=== PATIENT | female | born 1995 | race Caucasian/White ===

== ENCOUNTER → 2016-11-08 | Outpatient (CLI) | payer OTHER ==
--- NOTE | 2016-11-08 23:24 | MR ---
MRI of the brain with and without contrast HISTORY: Headaches.T1-weighted sagittal, T2, FLAIR, and diffusion axial, postcontrast T1 axial and co juanito views of the brain are submitted. CONTRAST: 12 mL MultiHance FINDINGS: There is no evidence of acute ischemia. The ventricles, basal cisterns, and sulci overlying the co nvexities are consistent with the patient's age. There is no mass effect or enhancing mass. Cerebellar tonsils are low-lying in position measuring 3 mm below the foramen magnum. No tonsillar be aking. No evidence of cerebellopontine angle mass. There is normal enhancement of the vasculature including the dural venous sinuses. Incidental note made of a tiny venous angioma within the left parietal lobe . There are changes of chronic sinusitis. Area of signal seen within the left inferior frontal lobe lik latanya related to intraparenchymal cyst measuring 8 mm. No enhancing lesions. There is a single area of abnormal signal within the left parietal white matter of doubtful significance. IMPRESSION: 1. Low-lying cerebellar tonsils measuring 3 mm below the foramen magnum but no tonsillar beaking. 2. Mild chronic sinusitis. 3. Single area of abnormal signal within the left parietal white matter of doubtful significance vanessa elate clinically. EXAMINATION TYPE: MR cervical spine with and without contrast DATE OF EXAM: 11/08/2016 9:44 PM COMPARISON: NONE HISTORY: Rt sided neck/ear pain, occassional swelling Contrast: 12 mL MultiHance Technique: T1 sagittal and coronal, T2 sagittal, and gradient echo axial views of the cervical spine are submitted. Findings: Cerebellar tonsils are low-lying in position measuring approximately 3 mm below the foramen magnum. No evidence of syrinx. There is no abnormal signal seen within the spinal cord or paraspinal soft tissues. At C2-3 there is no evidence of disc herniation or canal stenosis. No foraminal encroachment. At C3-4 there is no evidence of disc herniation or canal stenosis. No foraminal encroachment. At C4-5 there is mild disc desiccation and uncovertebral joint hypertrophy. No canal stenosis or fora eddie encroachment. No disc herniation. At C5-6 there is no evidence of disc herniation or canal stenosis. No foraminal encroachment. At C6-7 there is no evidence of disc herniation or canal stenosis. No foraminal encroachment. At C7-T1 there is no evidence of disc herniation or canal stenosis. No foraminal encroachment. IMPRESSION: 1. Mild disc desiccation C4-C5 with mild uncovertebral joint hypertrophy but no canal stenosis or di sc herniation. No foraminal encroachment. 2. Low-lying cerebellar tonsils measuring 3 mm below the foramen magnum. No tonsillar beaking.
== END | disposition home or self-care (01) ==
LOC: RADMRIMAIN 20:43
PROVIDERS: ATTEND Otolaryngology
DX: G93.89 Other specified disorders of brain (principal); J32.9 Chronic sinusitis, unspecified; H92.01 Otalgia, right ear; M50.821 Other cervical disc disorders at C4-C5 level
CPT/HCPCS: 70553; 72156; A9577

== ENCOUNTER → 2017-05-27 | Outpatient (CLI) | payer OTHER ==
[2017-05-27 12:09] LABS: CHCM 34.4; HDW 2.32; HGB 14.5 gm/dL (11.4-16.0); MCH 30.5 pg (25.0-35.0); MCHC 33.7 g/dL (31.0-37.0); MCV 90.6 fL (80.0-100.0); Mean Platelet Volume 10.1; RBC 4.75 m/uL (3.80-5.40); RDW 13.6 % (11.5-15.5)
[2017-05-27 12:22] LABS: Glucose 103 mg/dL (74-99); Non-African American GFR(MDRD) >60 (>60 ml/min/1.73 sqM)
[2017-05-27 12:48] LABS: Hepatitis B Surface Ag Index 0.05
== END | disposition home or self-care (01) ==
LOC: LABWHC1 11:26
PROVIDERS: ATTEND Obstetrics & Gynecology
DX: Z34.01 Encounter for supervision of normal first pregnancy, first trimester (principal); Z3A.00 Weeks of gestation of pregnancy not specified
CPT/HCPCS: 36415; 82565; 82947; 85027; 86762; 86780; 86850; 86900; 86901; 87340

== ENCOUNTER → 2017-09-02 | Outpatient (CLI) | payer OTHER ==
[2017-09-02 11:47] LABS: Glucose 3 Hour, Gest 57 mg/dL
== END | disposition home or self-care (01) ==
LOC: LABWHC1 07:52
PROVIDERS: ATTEND Obstetrics & Gynecology
DX: O99.810 Abnormal glucose complicating pregnancy (principal); Z3A.00 Weeks of gestation of pregnancy not specified
CPT/HCPCS: 36415; 82951; 82952

== ENCOUNTER 2017-11-24 14:54 | Outpatient (CLI) | payer OTHER, BC ==
[2017-11-24 16:20] VITALS: PULSE 102; RESP 16; TEMP 97
[2017-11-24 16:38] VITALS: BP 127/73
--- NOTE | 2017-12-02 15:56 | P.MSEPDOC ---
Presenting Problems - Arrival Data Date of Arrival on Unit: 11/24/17 Time of Arrival on Unit: 14:45 Mode of Transport: Ambulatory - Complaint OB-Reason for Admission/Chief Complaint: Elevated Blood Pressure Comment: pt states b/p 150/90 at home. dizzy, ears ringing, spots, nausea and diaphoretic. 4 times in one hour. gr 1 para 0 at [address] monzon pt. Medical History - Information : 1 Para: 0 Term: 0 : 0 Abortions: Spontaneous or Elective: 0 Number of Living Children: 0 - Gestational Age Gestational Age by CHATO (wks/days): 36 Weeks and 6 Days - History Comment: pt states b/p in office was 140/80 previously. no other elevations until today at home. adm b/p 139/73. without headache, blurred vision or epig pain. no edema present, bilat pat reflexes 2+ without clonus. Review of Systems - Review of Systems Constitutional: No problems Breast: No problems ENT: No problems Cardiovascular: No problems Respiratory: No problems Gastrointestinal: No problems Genitourinary: No problems Musculoskeletal: No problems Neurological: Dizziness Skin: No problems Vital Signs - Temperature Temperature: 97.0 F Temperature Source: Oral - Pulse Right Brachial Pulse Rate: 102 Pulse Assessment Method: Automatic Cuff - Respirations Respiratory Rate: 16 Oxygen Delivery Method: Room Air O2 Sat by Pulse Oximetry: 96 - Blood Pressure Right Arm Blood Pressure: 127/73 Blood Pressure Mean: 91 Blood Pressure Source: Automatic Cuff Medical Screen Scoring (Pre) - Cervical Exam Dilation: Exam Deferred - Uterine Contractions Frequency: N/A Duration: N/A Intensity: N/A - Maternal Vital Signs Maternal Temperature: N/A Maternal Blood Pressure: N/A Signs of Preeclampsia: N/A Maternal Respirations: N/A - Pain Assessment Pain Scale Used: Numeric (1 - 10) Pain Intensity: 0 - Maternal Trauma Maternal Trauma: N/A - Assessment Baseline FHR: 140 Heart Rate - NICHD Category: Category I (Normal) = 0 - Total Score Total Score (Pre): 0 - Level of Risk Level of Risk: Low (0-5) Physician Notification (Pre) - Physician Notified Physician Notified Date: 11/24/17 Physician Notified Time: 15:48 Physician/Practitioner Notifed:: yes Spoke With: glenna New Order Received: Yes - Notification Comment Comment: disch home. keep next sched appt. increase fluids. Medical Screen Scoring (Post) - Cervical Exam Dilation: Exam Deferred Effacement: Exam Deferred - Uterine Contractions Frequency: N/A Duration: N/A Intensity: N/A - Maternal Vital Signs Maternal Temperature: N/A Maternal Blood Pressure: N/A Signs of Preeclampsia: N/A Maternal Respirations: N/A - Pain Assessment Pain Intensity: 0 - Maternal Trauma Maternal Trauma: N/A - Assessment Heart Rate: 135 Heart Rate - NICHD Category: Category I (Normal) = 0 NST: Reactive Position: N/A Station: N/A - Total Score Total Score (Post): 0 - Post Treatment Level of Risk Post Treatment Level of Risk: N/A Physician Notification (Post) - Physician Notified Physician Notified Date: 11/24/17 Physician Notified Time: 15:48 New Order Received: Yes - Notification Comment Comment: disch home Disposition - Disposition OB Disposition: Discharge to home Transferred to:: home Discharge Date: 11/24/17 Discharge Time: 16:20 I agree with the RN Medical Screening Exam: Yes Risk & Benefit of care provided described in d/c instruction: Yes Diagnosis: DEHYDRATION
== END 2017-11-24 16:30 | disposition home or self-care (01) ==
LOC: FBPOP 14:54
PROVIDERS: ATTEND Obstetrics & Gynecology
DX: O99.283 Endocrine, nutritional and metabolic diseases complicating pregnancy, third trimester (principal); Z3A.36 36 weeks gestation of pregnancy
CPT/HCPCS: 59025; 99213

== ENCOUNTER 2017-11-28 12:03 | Outpatient (CLI) | payer OTHER, BC ==
[2017-11-28 12:36] VITALS: BP 120/70; PULSE 75; RESP 18; TEMP 97.3
[2017-11-28 12:47] LABS: ALT 22 U/L (9-52); AST 13 U/L (14-36); LDH 488 U/L (313-618); Uric Acid 4.3 mg/dL (3.7-7.4)
[2017-11-28 12:49] LABS: Basophils % (A) 0 %; Eosinophils # (A) 0.1 k/uL (0-0.7); Eosinophils % (A) 1 %; HCT 35.4 % (34.0-46.0); HGB 11.7 gm/dL (11.4-16.0); Lymphocytes # (A) 2.1 k/uL (1.0-4.8); Lymphocytes % (A) 17 %; MCH 29.1 pg (25.0-35.0); MCHC 33.1 g/dL (31.0-37.0); MCV 87.7 fL (80.0-100.0); Monocytes # (A) 0.5 k/uL (0-1.0); Monocytes % (A) 4 %; Neutrophils # (A) 9.3 k/uL (1.3-7.7); Neutrophils % (A) 76 %; Platelet Count 246 k/uL (150-450); RBC 4.03 m/uL (3.80-5.40); WBC 12.3 k/uL (3.8-10.6)
[2017-11-28 12:52] LABS: Amorphous Sediment,Urine Few /hpf; Appearance,Urine Cloudy (Clear); Bilirubin,Urine Negative (Negative); Blood,Urine Negative (Negative); Color,Urine Yellow; Glucose,Urine (UA) Negative (Negative); Ketones,Urine Negative (Negative); Leukocyte Esterase,Urine Large (Negative); Mucus,Urine Few /hpf; Nitrite,Urine Negative (Negative); Protein,Urine Trace (Negative); RBC,Urine 8 /hpf (0-5); Specific Gravity,Urine 1.018 (1.001-1.035); Squamous Epithelial Cell,Urine 1 /hpf (0-4); Urobilinogen,Urine <2.0 mg/dL (<2.0); WBC,Urine 2 /hpf (0-5)
--- NOTE | 2017-11-28 17:32 | P.MSEPDOC ---
Presenting Problems - Arrival Data Date of Arrival on Unit: 11/28/17 Time of Arrival on Unit: 12:03 Mode of Transport: Ambulatory - Complaint OB-Reason for Admission/Chief Complaint: PIH Comment: Sent from office for [facility] labs Medical History - Information : 1 Para: 0 Term: 0 : 0 Abortions: Spontaneous or Elective: 0 Number of Living Children: 0 - Gestational Age Gestational Age by CHATO (wks/days): 37 Weeks and 3 Days - History Complications: No Care Review of Systems - Review of Systems Constitutional: No problems Breast: No problems ENT: No problems Cardiovascular: No problems Respiratory: No problems Gastrointestinal: No problems Genitourinary: No problems Musculoskeletal: No problems Neurological: No problems Skin: No problems Vital Signs - Temperature Temperature: 97.3 F Temperature Source: Temporal Artery Scan - Pulse Right Brachial Pulse Rate: 75 - Respirations Respiratory Rate: 18 O2 Sat by Pulse Oximetry: 99 - Blood Pressure Right Arm Blood Pressure: 120/70 Blood Pressure Mean: 86 Blood Pressure Source: Automatic Cuff Medical Screen Scoring (Pre) - Cervical Exam Dilation: Exam Deferred Effacement: Exam Deferred Membranes: Intact - Uterine Contractions Frequency: N/A Duration: N/A Intensity: N/A - Maternal Vital Signs Maternal Temperature: N/A Maternal Blood Pressure: N/A Signs of Preeclampsia: N/A Maternal Respirations: N/A - Maternal Trauma Maternal Trauma: N/A - Assessment Baseline FHR: 135 Heart Rate - NICHD Category: Category I (Normal) = 0 NST: Reactive Position: N/A Station: N/A - Total Score Total Score (Pre): 0 - Level of Risk Level of Risk: Low (0-5) Physician Notification (Pre) - Physician Notified Physician Notified Date: 11/28/17 Physician Notified Time: 12:00 Physician/Practitioner Notifed:: Dr. Fagan Spoke With: Dr. Fagan New Order Received: Yes - Notification Comment Comment: Dr. Fagan called orders over to hospital for labs Medical Screen Scoring (Post) - Cervical Exam Dilation: Exam Deferred Effacement: Exam Deferred Membranes: Intact - Uterine Contractions Frequency: N/A Duration: N/A Intensity: N/A - Maternal Vital Signs Maternal Temperature: N/A Maternal Blood Pressure: N/A Signs of Preeclampsia: N/A Maternal Respirations: N/A - Maternal Trauma Maternal Trauma: N/A - Assessment Heart Rate: 145 Heart Rate - NICHD Category: Category I (Normal) = 0 NST: Reactive Position: N/A Station: N/A - Total Score Total Score (Post): 0 - Post Treatment Level of Risk Post Treatment Level of Risk: Low (0-5) Physician Notification (Post) - Physician Notified Physician Notified Date: 11/28/17 Physician Notified Time: 13:00 Physician/Practitioner Notified:: Dr Fagan Spoke With: Dr. Fagan New Order Received: Yes - Notification Comment Comment: Discharge home and return to office as scheduled Disposition - Disposition OB Disposition: Discharge to home I agree with the RN Medical Screening Exam: Yes Risk & Benefit of care provided described in d/c instruction: Yes Diagnosis: GESTATIONAL HTN W/O SIGNIFICANT PROTEINURIA, THIRD TRIMESTER
== END 2017-11-28 13:03 | disposition home or self-care (01) ==
LOC: FBPOP 12:03
PROVIDERS: ATTEND Obstetrics & Gynecology
DX: O13.3 Gestational [pregnancy-induced] hypertension without significant proteinuria, third trimester (principal); Z3A.37 37 weeks gestation of pregnancy
CPT/HCPCS: 59025; 81001; 82565; 83615; 84450; 84460; 84550; 85025; 87086

== ENCOUNTER 2017-12-13 16:23 | Inpatient (IN) | payer BC, OTHER ==
[2017-12-13 16:53] LABS: Appearance,Urine Cloudy (Clear); Bacteria,Urine Few /hpf; Bilirubin,Urine Negative (Negative); Blood,Urine Trace (Negative); Color,Urine Yellow; Glucose,Urine (UA) Negative (Negative); Ketones,Urine Negative (Negative); Leukocyte Esterase,Urine Large (Negative); Mucus,Urine Rare /hpf; Nitrite,Urine Negative (Negative); PH, Urine 6.5 (5.0-8.0); Protein,Urine Trace (Negative); RBC,Urine 11 /hpf (0-5); Specific Gravity,Urine 1.016 (1.001-1.035); Squamous Epithelial Cell,Urine 8 /hpf (0-4); WBC,Urine 15 /hpf (0-5)
[2017-12-13] MEDS ORDERED: DINOPROSTONE 10 MG INSERT.ER VAGINAL ONE (17:00)
[2017-12-13 17:20] LABS: Basophils % (A) 0 %; Eosinophils # (A) 0.1 k/uL (0-0.7); Eosinophils % (A) 1 %; HCT 37.4 % (34.0-46.0); HGB 11.9 gm/dL (11.4-16.0); Lymphocytes # (A) 2.3 k/uL (1.0-4.8); Lymphocytes % (A) 18 %; MCH 28.6 pg (25.0-35.0); MCHC 31.7 g/dL (31.0-37.0); MCV 90.2 fL (80.0-100.0); Mean Platelet Volume 9.5; Monocytes # (A) 0.6 k/uL (0-1.0); Monocytes % (A) 5 %; Neutrophils # (A) 9.7 k/uL (1.3-7.7); Neutrophils % (A) 75 %; Platelet Count 216 k/uL (150-450); RBC 4.15 m/uL (3.80-5.40); RDW 14.7 % (11.5-15.5); WBC 12.9 k/uL (3.8-10.6)
[2017-12-13 17:31] LABS: ALT 19 U/L (9-52); AST 15 U/L (14-36); Blood Urea Nitrogen 10 mg/dL (7-17); Uric Acid 4.4 mg/dL (3.7-7.4)
[2017-12-13 17:40] VITALS: BMI 35.5
[2017-12-13 17:48] LABS: LDH 468 U/L (313-618)
[2017-12-13 17:55] LABS: INR 0.9 (<1.2); Prothrombin Time 9.4 sec (9.0-12.0)
--- NOTE | 2017-12-13 18:03 | P.HPOB ---
History of Present Illness H&P Date: 12/13/17 Chief Complaint: Hypertension in This patient is a pleasant 22-year-old 1 para 0 female estimated date of confinement 12/16/2017 estimated gestational age 39-4/7 weeks gestation who presents to labor and delivery for evaluation of hypertension. Patient's history is such that she presented this afternoon for routine visit and was found to have elevated blood pressure 142/92. Patient previously had had a blood pressure elevated at home a few weeks ago however this could not be reproduced in the office or in labor and delivery and preeclampsia labs were negative as well. Patient now has persistent blood pressures that are 140/90 or higher and presents for delivery secondary to this. Repeat preeclampsia labs again are normal. She is not having a headache. She does have some peripheral edema which has been going on for several weeks. Patient's care has otherwise been uncomplicated. Review of Systems Gastrointestinal: Reports heartburn Genitourinary: Reports Menstruation: Reports amenorrhea Past Medical History Past Medical History: Skin Disorder Additional Past Medical History / Comment(s): eczema on arms & legs- uses otc lotion. rt breast mass upper outer quadrant-mild discomfort History of Any Multi-Drug Resistant Organisms: None Reported Past Surgical History: Ear Surgery, Tonsillectomy Additional Past Surgical History / Comment(s): ear surgery x 11 on missy. ears for tubes & polyps. wisdom teeth Past Anesthesia/Blood Transfusion Reactions: No Reported Reaction Past Psychological History: No Psychological Hx Reported Smoking Status: Never smoker Past Alcohol Use History: Occasional Past Drug Use History: None Reported - Past Family History Father Family Medical History: Hypertension Medications and Allergies Home Medications Medication Instructions Recorded Confirmed Type Acetaminophen Tab [Tylenol Tab] 650 mg PO Q6H 11/24/17 12/13/17 History Calcium Carbonate [Tums] 500 mg PO TID 11/24/17 12/13/17 History Pnv,Calcium 72/Iron/Folic Acid 1 tab PO DAILY 11/24/17 12/13/17 History [ Plus Tablet] Allergies Allergy/AdvReac Type Severity Reaction Status Date / Time azithromycin [From Zithromax] Allergy Rash/Hives Verified 12/13/17 16:34 Exam - Vital Signs Vital signs: Vital Signs Temp Pulse Resp BP 12/13/17 17:32 98 F 83 16 123/87 02/20/18 17:22 97.9 F 97 18 142/80 Intake and Output 12/13/17 12/13/17 12/13/17 06:59 14:59 22:59 Other: Weight 93.894 kg Patient Weight 12/14/17 06:59 Weight 93.894 kg - OBG Physical Exam Abdomen: bowel sounds normal, no diffuse tenderness, no bruit present, no guarding noted, no hepatomegaly, no splenomegaly, no mass Vulva: both: normal Vagina: normal moisture, no discharge Cervix: Cervix in the office is closed internal os fingertip external os. Cervix: no lesion, no discharge Uterus: enlarged (fundal height is 40 cm.) Results blood work shows she is be positive, rubella immune, RPR nonreactive, hepatitis B negative, group B strep negative, Glucola was 137 with a normal three-hour gtt. Ultrasounds have been normal. Result Diagrams: 12/13/17 16:53 12/13/17 16:53 Abnormal Lab Results - Last 24 Hours (Table) 12/13/17 12/13/17 Range/Units 16:36 16:53 WBC 12.9 H (3.8-10.6) k/uL Neutrophils # 9.7 H (1.3-7.7) k/uL Urine Appearance Cloudy H (Clear) Urine Protein Trace H (Negative) Urine Blood Trace H (Negative) Ur Leukocyte Esterase Large H (Negative) Urine RBC 11 H (0-5) /hpf Urine WBC 15 H (0-5) /hpf Ur Squamous Epith Cells 8 H (0-4) /hpf Urine Bacteria Few H (None) /hpf Urine Mucus Rare H (None) /hpf Assessment and Plan Assessment: This is a pleasant 22-year-old 1 para 0 female 39-4/7 weeks gestation with gestational hypertension at term. There is no evidence of preeclampsia. Per current protocol recommendations are to proceed with delivery. Since the patient's cervix is unfavorable, plan is Cervidil ripening of the cervix and induction of labor. (1) Third trimester Current Visit: Yes Status: Acute Code(s): Z34.93 - ENCNTR FOR SUPRVSN OF NORMAL PREG, UNSP, THIRD TRIMESTER SNOMED Code(s): 93586374 (2) Gestational hypertension Current Visit: Yes Status: Acute Code(s): O13.9 - GESTATIONAL HTN W/O SIGNIFICANT PROTEINURIA, UNSP TRIMESTER SNOMED Code(s): 51091042
[2017-12-13 18:13] LABS: Partial Thromboplastin Time 21.9 sec (22.0-30.0)
[2017-12-13] MEDS: BUTORPHANOL 1 MG/ML 1 ML VIAL IV PRN (22:24)
[2017-12-13] MEDS: LACTATED RINGERS 1,000 ML IV SCH (23:30)
[2017-12-14] MEDS: BUTORPHANOL 1 MG/ML 1 ML VIAL IV PRN ×3 (00:28→06:05)
[2017-12-14] MEDS: LACTATED RINGERS 1,000 ML IV SCH ×4 (03:50→21:14)
[2017-12-14] MEDS ORDERED: TERBUTALINE 1 MG/ML VIAL SQ PRN (04:50)
[2017-12-14] MEDS ORDERED: METHYLERGONOVINE 0.2 MG/ML 1 ML AMP IM PRN (04:50)
[2017-12-14] MEDS ORDERED: OXYTOCIN 10 UNIT/ML 1 ML VIAL IM PRN (04:50)
[2017-12-14] MEDS ORDERED: LIDOCAINE 1% (PF) 10 MG/ML (30 ML SDV) SQ PRN (04:50)
[2017-12-14] MEDS ORDERED: CARBOPROST TROMETHAMINE 250 MCG/ML 1 ML AMP IM PRN (04:50)
[2017-12-14] MEDS: OXYTOCIN 20 UNITS/1000 ML NS 1,000 ML IV SCH (06:10)
--- NOTE | 2017-12-14 06:13 | P.MSEPDOC ---
Presenting Problems - Arrival Data Date of Arrival on Unit: 12/13/17 Time of Arrival on Unit: 16:23 Mode of Transport: Ambulatory - Complaint OB-Reason for Admission/Chief Complaint: PIH Medical History - Information : 1 Para: 0 Term: 0 : 0 Abortions: Spontaneous or Elective: 0 Number of Living Children: 0 - Gestational Age Gestational Age by CHATO (wks/days): 39 Weeks and 4 Days Review of Systems - Review of Systems Constitutional: No problems Breast: No problems ENT: No problems Cardiovascular: No problems Respiratory: No problems Gastrointestinal: No problems Genitourinary: No problems Musculoskeletal: No problems Neurological: No problems Skin: No problems Vital Signs - Temperature Temperature: 98 F Temperature Source: Temporal Artery Scan - Pulse Right Sitting Brachial Pulse Rate: 83 Pulse Assessment Method: Automatic Cuff - Respirations Respiratory Rate: 16 Oxygen Delivery Method: Room Air - Blood Pressure Right Arm Supine Blood Pressure: 123/87 Blood Pressure Mean: 99 Blood Pressure Source: Automatic Cuff Medical Screen Scoring (Pre) - Cervical Exam Dilation: Exam Deferred Effacement: Exam Deferred Membranes: Intact - Uterine Contractions Frequency: N/A Duration: N/A Intensity: N/A - Maternal Vital Signs Maternal Temperature: N/A Maternal Blood Pressure: Systolic >139 = 2 Signs of Preeclampsia: N/A Maternal Respirations: N/A - Total Score Total Score (Pre): 2 - Level of Risk Level of Risk: Low (0-5) Physician Notification (Pre) - Physician Notified Physician Notified Date: 12/13/17 Physician Notified Time: 16:40 Physician/Practitioner Notifed:: Rylan Spoke With: Rylan New Order Received: Yes - Notification Comment Comment: Admit for cervidil Disposition - Disposition OB Disposition: Admit, LDRP Suite I agree with the RN Medical Screening Exam: Yes Risk & Benefit of care provided described in d/c instruction: Yes Diagnosis: GESTATIONAL HTN W/O SIGNIFICANT PROTEINURIA, THIRD TRIMESTER
--- NOTE | 2017-12-14 06:59 | P.PN ---
Progress Note - Text Progress Note Date: 12/14/17 Patient responded well to the Cervidil overnight. This was removed at 3:30 am and patient had SROM at 5:30 this morning. Cervix is 1-/. Will begin Pitocin augmentation per protocol. Blood pressures remain stable. Patient understands that I will be here until approximately noon, at which time Dr. Childress will take over managing her labor.
[2017-12-14] MEDS ORDERED: SODIUM CHLORIDE 0.9% 100 ML BAG ONE ×2 (07:33→15:23)
[2017-12-14] MEDS ORDERED: fentaNYL (PF) 50 MCG/ML 5 ML AMP ONE ×2 (07:33→15:23)
[2017-12-14] MEDS ORDERED: BUPIVACAINE (PF) 0.25% 30 ML VIAL ONE ×2 (07:33→15:23)
[2017-12-14] MEDS ORDERED: BUPIVACAINE (PF) 0.25% 25 ML, fentaNYL (PF) 200 MCG in SODIUM CHLORIDE 0.9% 71 ML EPIDURAL ONE (09:18)
[2017-12-14] MEDS ORDERED: LABETALOL 5 MG/ML VIAL MDV IVP STA (15:00)
[2017-12-14] MEDS ORDERED: CITRIC ACID-SODIUM CITRATE 15 ML CUP PO ONE (15:01)
[2017-12-14] MEDS ORDERED: ONDANSETRON 4 MG/2 ML VIAL ONE (15:23)
[2017-12-14] MEDS ORDERED: MORPHINE SULFATE (PF) 0.3 MG/0.3 ML SYR ONE (15:23)
[2017-12-14] MEDS ORDERED: KETOROLAC 30 MG/ML 1 ML VIAL ONE (15:23)
[2017-12-14] MEDS ORDERED: PHENYLEPHRINE-0.9% NACL SYG 1 MG/10 ML SYRINGE ONE (15:23)
[2017-12-14] MEDS ORDERED: OXYTOCIN 10 UNIT/ML 1 ML VIAL ONE (15:23)
[2017-12-14] MEDS ORDERED: diphenhydrAMINE 50 MG/ML 1 ML VIAL IVP PRN ×2 (16:05)
[2017-12-14] MEDS ORDERED: Acetaminophen-Codeine 300-30mg TAB PO PRN ×2 (16:05)
[2017-12-14] MEDS ORDERED: diphenhydrAMINE 50 MG CAP PO PRN (16:05)
[2017-12-14] MEDS ORDERED: ACETAMINOPHEN TAB 325 MG TAB PO PRN (16:05)
[2017-12-14] MEDS ORDERED: METOCLOPRAMIDE 5 MG/ML 2 ML VIAL IVP PRN (16:05)
[2017-12-14] MEDS ORDERED: ZOLPIDEM 5 MG TAB PO PRN (16:05)
[2017-12-14] MEDS ORDERED: ONDANSETRON 4 MG/2 ML VIAL IVP PRN (16:05)
[2017-12-14] MEDS ORDERED: NALOXONE 0.4 MG/ML 1 ML VIAL IV PRN (16:05)
[2017-12-14] MEDS ORDERED: SIMETHICONE 80 MG CHEWABLE PO PRN (16:05)
[2017-12-14] MEDS ORDERED: diphenhydrAMINE 25 MG CAP PO PRN (16:05)
--- NOTE | 2017-12-14 16:11 | P.OP ---
Date of Procedure: 12/14/17 Preoperative Diagnosis: IUP term: arrest of dilitation: gest DM Postoperative Diagnosis: same Procedure(s) Performed: Primary low transverse section from Pfannenstiel Anesthesia: epidural Surgeon: Carlitos Childress Door Clamper #1: Amy De León Estimated Blood Loss (ml): 600 IV fluids (ml): 1,000 Urine output (ml): 200 Pathology: other (Placenta) Condition: stable Disposition: floor Operative Findings: Male scores of 8 and 9 at one and 5 respectively and weight 7 lbs. 12 oz. Baby was delivered from left occiput anterior with asynclitic presentation and cephalopelvic disproportion Description of Procedure: Patient was evaluated due to elevations in blood pressure anywhere from 170/100- 165/99. She had been dilated to 9/2 cm for over 3 hours and had made no further descent or dilatation. Due to this and her ever increasing pain and worsening blood pressures a decision was mad between myself and she and her family. The decision was to proceed with a section to get the baby delivered and trying get the blood pressures better under control. Due to elevations in blood pressure labetalol 20 mg was ordered. I did offer to allow her to continue to labor but she felt the baby was stuck in with no progress in 3 hours she was certain that she was not going to dilated anymore and out of the abundance of caution with her blood pressures the decision was made to move forward with a section. She was taken to the operating suite where a epidural anesthetic was found be adequate. She was prepped and draped in the normal sterile fashion and placed in the dorsal supine position with leftward tilt. Initially a Pfannenstiel skin incision was made and this incision was then carried through to the underlying layer of the fashion with the second knife. Fascia was then nicked in the midline and this opening was extended laterally with Blair scissors. Superior and inferior aspect of this incision were then grasped tented up and bluntly and sharply dissected off the rectus muscles. Rectus muscles were then divided the midline and blunt dissection through the peritoneum was made. His opening was then extended superiorly and inferiorly with good visualization of both bowel bladder. Bladder blade was placed and bladder flap identified and entered with Metzenbaum scissors. This opening was then extended across the face of the uterus with Metzenbaum scissors and bladder flap was digitally created. Knife was then used to incise the uterus this opening was fully developed wasn't hemostat and then bluntly extended. Head was then H medically delivered with large At noted on the top of the baby's head off to the left-hand side. Once baby was fully delivered mouth nares were bulb suctioned and nuchal cord 1 had been reduced. The umbilical cord was then allowed to pulsate for approximately 30 seconds and then clamped cut usual fashion.. Nursery personnel was present to assume care. Placenta was then delivered intact and Pitocin was added to the IV. Uterus was then exteriorized cleared of clots and debris and closed in 2 layers with 0 Vicryl suture. Once excellent hemostasis was obtained 3-0 Vicryl was used to reapproximate the bladder flap. Blood and debris was then suctioned from the posterior cul-de-sac and uterus was reinserted into the abdomen. Blood and debris was then removed from the gutters. Peritoneal layer was then cleaned with hemostats and closed with 0 Vicryl suture. Fascial layer was then closed with 0 Vicryl suture one layer of 3-0 Vicryl was placed in the deep subcuticular tissues reapproximate the skin and close the space. The skin was then closed with 3-0 Vicryl on a Matt needle. Sponge, lap, needle counts were all correct 2. Patient tolerated surgery very well and was taken to the recovery room in stable and satisfactory condition.
[2017-12-14] MEDS: SENNOSIDES-DOCUSATE SODIUM 1 EACH TAB PO SCH (21:14)
[2017-12-15] MEDS: KETOROLAC 30 MG/ML 1 ML VIAL IVP PRN ×2 (00:14→06:29)
[2017-12-15] MEDS: LACTATED RINGERS 1,000 ML IV SCH ×3 (01:32→14:40)
--- NOTE | 2017-12-15 06:30 | P.PNOBGPC ---
Subjective - Subjective Patient reports: Reports appetite normal, Reports voiding normally, Reports pain well controlled, Reports ambulating normally [place]: doing well Objective - Vital Signs Latest vital signs: Vital Signs Temp Pulse Resp BP Pulse Ox 12/15/17 04:00 97.4 F L 100 16 128/57 96 12/15/17 00:00 98.1 F 99 17 125/80 96 12/14/17 20:00 98.2 F 96 17 141/90 98 12/14/17 18:05 98.4 F 104 H 20 149/94 99 12/14/17 17:35 85 18 152/98 12/14/17 17:05 87 20 12/14/17 16:55 88 18 150/97 100 12/14/17 16:40 88 20 149/99 12/14/17 16:25 93 18 142/94 12/14/17 16:10 96.2 F L 84 20 138/92 98 Intake and Output 12/14/17 12/14/17 12/15/17 14:59 22:59 06:59 Output Total 350 600 500 Balance -350 -600 -500 Output: Urine 350 600 500 Straight 350 Other: Voiding Method Toilet Indwelling Catheter Indwelling Catheter # Voids 1 0 - Exam Lungs: bilateral: normal Chest: Normal S1, Normal S2 Extremities: Present: normal Abdomen: Present: normal appearance, soft. Absent: distention, tenderness Incision: Present: normal, dry, intact Uterus: Present: normal, firm Assessment and Plan Assessment: Post operative day #1. Patient is resting without complaints. Vital signs are stable and blood pressures have normalized. Uterus is firm nontender she's having normal lochia. Her incision is intact and dry. Patient's having good urine output. I impression this is a normal post operative course with resolving hypertension. Plan is to discontinue her catheter, encourage ambulation, advanced to a regular diet, check a CBC. (1) Third trimester Current Visit: Yes Status: Acute Code(s): Z34.93 - ENCNTR FOR SUPRVSN OF NORMAL PREG, UNSP, THIRD TRIMESTER SNOMED Code(s): 73322874 (2) Gestational hypertension Current Visit: Yes Status: Acute Code(s): O13.9 - GESTATIONAL HTN W/O SIGNIFICANT PROTEINURIA, UNSP TRIMESTER SNOMED Code(s): 90935262
--- NOTE | 2017-12-15 06:36 | P.PN ---
Progress Note - Text Progress Note Date: 12/15/17 POST OP DAY ONE, STATUS POST C/S UNDER EPIDURAL ANESTHESIA, WITH EPIDURAL DURAMORPH GIVEN FOR POST OP ANALGESIA , PATIENTS DOING WELL, THERE IS NO ANESTHESIA RELATED COMPLICATIONS.
[2017-12-15] MEDS: OXYTOCIN 20 UNITS/1000 ML NS 1,000 ML IV SCH (06:42)
[2017-12-15 06:44] LABS: Basophils % (A) 0 %; Eosinophils # (A) 0.2 k/uL (0-0.7); Eosinophils % (A) 1 %; Lymphocytes % (A) 12 %; MCH 28.2 pg (25.0-35.0); MCHC 32.4 g/dL (31.0-37.0); MCV 87.1 fL (80.0-100.0); Mean Platelet Volume 9.3; Monocytes # (A) 0.5 k/uL (0-1.0); Monocytes % (A) 4 %; Neutrophils # (A) 12.9 k/uL (1.3-7.7); Neutrophils % (A) 82 %; Platelet Count 199 k/uL (150-450); RBC 3.44 m/uL (3.80-5.40); RDW 15.1 % (11.5-15.5); WBC 15.8 k/uL (3.8-10.6)
[2017-12-15 06:47] LABS: HGB 9.7 gm/dL (11.4-16.0)
[2017-12-15] MEDS: IBUPROFEN 600 MG TAB PO PRN ×2 (11:54→17:47)
[2017-12-15] MEDS: SENNOSIDES-DOCUSATE SODIUM 1 EACH TAB PO SCH ×2 (19:32→21:48)
[2017-12-16] MEDS: IBUPROFEN 600 MG TAB PO PRN ×3 (03:16→16:03)
--- NOTE | 2017-12-16 06:03 | P.PNOBGVD ---
Subjective - Subjective Patient reports: Reports appetite normal, Reports voiding normally, Reports pain well controlled, Reports ambulating normally : doing well Objective - Latest Vital Signs Latest vital signs: Vital Signs Temp Pulse Resp BP 12/16/17 00:00 97.8 F 116 H 16 120/68 12/15/17 16:00 98.4 F 108 H 16 140/88 12/15/17 12:05 97.6 F 104 H 16 136/83 12/15/17 08:00 98.2 F 99 16 124/79 Intake and Output 12/15/17 12/15/17 12/16/17 14:59 22:59 06:59 Output Total 800 Balance -800 Output: Urine 800 Other: Voiding Method Toilet # Voids 1 1 - Exam Lungs: bilateral: normal Chest: Normal S1, Normal S2 Extremities: Present: normal Abdomen: Present: normal appearance, soft Uterus: Present: normal, firm - Labs Labs: Abnormal Lab Results - Last 24 Hours (Table) 12/15/17 Range/Units 06:36 WBC 15.8 H (3.8-10.6) k/uL RBC 3.44 L (3.80-5.40) m/uL Hgb 9.7 L D (11.4-16.0) gm/dL Hct 30.0 L (34.0-46.0) % Neutrophils # 12.9 H (1.3-7.7) k/uL Assessment and Plan Assessment: Postoperative day #2. Vital signs are stable she's afebrile. Patient is intact and dry. My impression is a normal postoperative course. Plan is to continue routine postoperative care and most likely discharge home tomorrow. Continue to watch her blood pressures. (1) Third trimester Current Visit: Yes Status: Acute Code(s): Z34.93 - ENCNTR FOR SUPRVSN OF NORMAL PREG, UNSP, THIRD TRIMESTER SNOMED Code(s): 81328560 (2) Gestational hypertension Current Visit: Yes Status: Acute Code(s): O13.9 - GESTATIONAL HTN W/O SIGNIFICANT PROTEINURIA, UNSP TRIMESTER SNOMED Code(s): 50033818
[2017-12-16] MEDS: SENNOSIDES-DOCUSATE SODIUM 1 EACH TAB PO SCH ×2 (07:48→20:50)
[2017-12-17] MEDS: IBUPROFEN 600 MG TAB PO PRN ×2 (00:22→05:46)
--- NOTE | 2017-12-17 06:47 | P.PNOBGPC ---
Subjective - Subjective Patient reports: Reports appetite normal, Reports voiding normally, Reports pain well controlled, Reports ambulating normally : doing well Objective - Vital Signs Latest vital signs: Vital Signs Temp Pulse Resp BP Pulse Ox 12/17/17 00:00 98 F 90 15 150/80 12/16/17 16:00 97.1 F L 108 H 16 138/94 12/16/17 08:00 97.7 F 104 H 20 140/91 96 Intake and Output 12/16/17 12/16/17 12/17/17 14:59 22:59 06:59 Output Total 600 Balance -600 Output: Estimated Blood Loss 600 - Exam Lungs: bilateral: normal Chest: Normal S1, Normal S2 Extremities: Present: normal Abdomen: Present: normal appearance, soft. Absent: distention, tenderness Incision: Present: normal, dry, intact Uterus: Present: normal, firm Assessment and Plan Assessment: Postoperative day #3. Patient is resting without new complaints. Vital signs are stable and she is afebrile. Blood pressures mildly elevated but nothing that requires treatment at this time. Patient is asymptomatic. Patient is tolerating regular diet, ambulating, urinating without difficulty. My impression is a normal postoperative course. Plan will be to discharge home today and follow up with me in 4 days for an incision and blood pressure check. (1) Third trimester Current Visit: Yes Status: Acute Code(s): Z34.93 - ENCNTR FOR SUPRVSN OF NORMAL PREG, UNSP, THIRD TRIMESTER SNOMED Code(s): 57916716 (2) Gestational hypertension Current Visit: Yes Status: Acute Code(s): O13.9 - GESTATIONAL HTN W/O SIGNIFICANT PROTEINURIA, UNSP TRIMESTER SNOMED Code(s): 20882609
--- NOTE | 2017-12-17 06:49 | P.DS ---
Providers Date of admission: 12/13/17 16:44 Expected date of discharge: 12/17/17 Attending physician: Vahe Fagan Primary care physician: Stated None - Discharge Diagnosis(es) (1) Third trimester Current Visit: Yes Status: Acute (2) Gestational hypertension Current Visit: Yes Status: Acute Hospital Course: Please see dictated H&P for intimate details of this patient's admission. Brief summary this pleasant 22-year-old 1 para 0 female 39-4/7 weeks gestation admitted to labor and delivery for two-stage induction of labor secondary to gestational hypertension. She does respond well to a Cervidil however remains at 9 cm for prolonged period of time and undergoes a primary low transverse section for viable male infant. Please see dictated operative note. Postoperatively 3 patient's felt be stable for discharge home follow up with me. Procedures: Primary low transverse section Patient Condition at Discharge: Good Plan - Discharge Summary Discharge Rx Participant: No New Discharge Prescriptions: New Acetaminophen-Codeine 300-30mg [Tylenol w/codeine #3] 1 - 2 each PO Q4HR PRN #30 tab PRN Reason: Mild Pain Ibuprofen [Motrin] 600 mg PO Q6HR PRN #40 tab PRN Reason: Mild Pain Or Fever >= 100.5 No Action Pnv,Calcium 72/Iron/Folic Acid [ Plus Tablet] 1 tab PO DAILY Acetaminophen Tab [Tylenol Tab] 650 mg PO Q6H Calcium Carbonate [Tums] 500 mg PO TID Discharge Medication List Acetaminophen Tab [Tylenol Tab] 650 mg PO Q6H 11/24/17 [History] Calcium Carbonate [Tums] 500 mg PO TID 11/24/17 [History] Pnv,Calcium 72/Iron/Folic Acid [ Plus Tablet] 1 tab PO DAILY 11/24/17 [ History] Acetaminophen-Codeine 300-30mg [Tylenol w/codeine #3] 1 - 2 each PO Q4HR PRN # 30 tab 12/17/17 [Rx] Ibuprofen [Motrin] 600 mg PO Q6HR PRN #40 tab 12/17/17 [Rx] Follow up Appointment(s)/Referral(s): Vahe Fagan MD [STAFF PHYSICIAN] - 12/21/17 1:30 pm (Patient also has a visit on January 24 at 9:15 AM.) Patient Instructions/Handouts: (DC) Activity/Diet/Wound Care/Special Instructions: No heavy lifting or strenuous activity for 6 weeks. No intercourse or anything per vagina for 6 weeks. Please call if any fever, chills, excessive vaginal bleeding, and/or abdominal pain. Discharge Disposition: HOME SELF-CARE
[2017-12-17 09:24] VITALS: BP 134/78; PULSE 98; RESP 14; TEMP 98
[2017-12-17] MEDS: SENNOSIDES-DOCUSATE SODIUM 1 EACH TAB PO SCH (11:47)
== END 2017-12-17 11:30 | disposition home or self-care (01) | DRG 766 ==
LOC: FBPOP 16:23 → 4FBP 16:44
PROVIDERS: ADMIT Obstetrics & Gynecology; ATTEND Obstetrics & Gynecology
PROC: 3E0R3NZ Introduction of Analgesics, Hypnotics, Sedatives into Spinal Canal, Percutaneous Approach (ICD-10-PCS; 2017-12-14)
PROC: 00HU33Z Insertion of Infusion Device into Spinal Canal, Percutaneous Approach (ICD-10-PCS; 2017-12-14)
PROC: 10D00Z1 Extraction of Products of Conception, Low, Open Approach (ICD-10-PCS; principal; 2017-12-14 15:30)
DX: O13.4 Gestational [pregnancy-induced] hypertension without significant proteinuria, complicating childbirth (principal); O33.9 Maternal care for disproportion, unspecified; O62.1 Secondary uterine inertia; Z37.0 Single live birth; Z3A.39 39 weeks gestation of pregnancy; Z90.89 Acquired absence of other organs; Z82.49 Family history of ischemic heart disease and other diseases of the circulatory system; Z79.899 Other long term (current) drug therapy; Z88.1 Allergy status to other antibiotic agents
CPT/HCPCS: 59025; 81001; 82565; 83615; 84450; 84460; 84520; 84550; 85025; 85610; 85730; 86850; 86900; 86901; 88307; 99215

== ENCOUNTER → 2018-11-16 | Outpatient (CLI) | payer OTHER | END | disposition home or self-care (01) | LOC: LABWHC1 17:03 | PROVIDERS: ATTEND Obstetrics & Gynecology | DX: O02.1 Missed abortion (principal); Z3A.00 Weeks of gestation of pregnancy not specified | CPT/HCPCS: 36415; 84702; 86850; 86900; 86901 ==

== ENCOUNTER → 2018-11-23 | Outpatient (CLI) | payer OTHER | END | disposition home or self-care (01) | LOC: LABWHC1 14:44 | PROVIDERS: ATTEND Obstetrics & Gynecology | DX: O03.9 Complete or unspecified spontaneous abortion without complication (principal) | CPT/HCPCS: 36415; 84702 ==

== ENCOUNTER → 2019-04-16 | Outpatient (CLI) | payer BC ==
[2019-04-16 17:13] LABS: HCT 41.9 % (34.0-46.0); HGB 13.8 gm/dL (11.4-16.0); MCH 28.9 pg (25.0-35.0); MCV 87.5 fL (80.0-100.0); Mean Platelet Volume 8.9; Platelet Count 228 k/uL (150-450); RBC 4.79 m/uL (3.80-5.40); RDW 13.1 % (11.5-15.5)
[2019-04-17 00:12] LABS: African American GFR (CKD) 140.6 (60.0-200.0)
== END | disposition home or self-care (01) ==
LOC: LABWHC1 16:44
PROVIDERS: ATTEND Obstetrics & Gynecology
DX: Z34.81 Encounter for supervision of other normal pregnancy, first trimester (principal)
CPT/HCPCS: 36415; 82565; 82947; 85027; 86762; 86780; 86850; 86900; 86901; 87340

== ENCOUNTER → 2019-08-10 | Outpatient (CLI) | payer BC, OTHER ==
[2019-08-10 11:03] LABS: HGB 12.7 gm/dL (11.4-16.0); MCH 30.4 pg (25.0-35.0); MCHC 33.4 g/dL (31.0-37.0); MCV 91.1 fL (80.0-100.0); Platelet Count 225 k/uL (150-450); RBC 4.18 m/uL (3.80-5.40); RDW 13.2 % (11.5-15.5)
== END | disposition home or self-care (01) ==
LOC: LABWHC1 08:56
PROVIDERS: ATTEND Obstetrics & Gynecology
DX: Z34.82 Encounter for supervision of other normal pregnancy, second trimester (principal); Z3A.00 Weeks of gestation of pregnancy not specified
CPT/HCPCS: 36415; 82950; 85027

== ENCOUNTER 2019-10-01 11:51 | Outpatient (CLI) | payer OTHER, BC ==
[2019-10-01 12:50] VITALS: BP 116/73; PULSE 93; RESP 16; TEMP 96.9
--- NOTE | 2019-10-14 08:58 | P.MSEPDOC ---
Presenting Problems - Arrival Data Date of Arrival on Unit: 10/01/19 Time of Arrival on Unit: 11:51 Mode of Transport: Ambulatory - Complaint OB-Reason for Admission/Chief Complaint: Other Medical History - Information : 3 Para: 1 Term: 1 : 0 Abortions: Spontaneous or Elective: 1 Number of Living Children: 1 - Gestational Age Gestational Age by CHATO (wks/days): 31 Weeks and 5 Days Review of Systems - Review of Systems Constitutional: No problems Breast: No problems ENT: No problems Cardiovascular: No problems Respiratory: No problems Gastrointestinal: No problems Genitourinary: No problems Musculoskeletal: No problems Neurological: No problems Skin: No problems Vital Signs - Temperature Temperature: 96.9 F Temperature Source: Temporal Artery Scan - Pulse Right Sitting Pulse Rate: 93 Pulse Assessment Method: Automatic Cuff - Respirations Respiratory Rate: 16 Oxygen Delivery Method: Room Air O2 Sat by Pulse Oximetry: 98 - Blood Pressure Right Arm Blood Pressure: 116/73 Blood Pressure Mean: 87 Blood Pressure Source: Automatic Cuff Medical Screen Scoring (Pre) - Cervical Exam Dilation: Exam Deferred Effacement: Exam Deferred - Uterine Contractions Frequency: N/A - Maternal Vital Signs Maternal Temperature: N/A Maternal Blood Pressure: N/A Signs of Preeclampsia: N/A Maternal Respirations: N/A - Maternal Trauma Maternal Trauma: N/A - Assessment - Baby A Baseline FHR: 135 Heart Rate - NICHD Category: Category I (Normal) = 0 NST: Reactive Position: N/A Station: N/A - Total Score - Baby A Total Score - Baby A: 0 - Total Score - Baby B Total Score - Baby B: 0 - Total Score - Baby C Total Score - Baby C: 0 - Level of Risk - Baby A Level of Risk - Baby A: Low (0-5) - Level of Risk - Baby B Level of Risk - Baby B: Low (0-5) - Level of Risk - Baby C Level of Risk - Baby C: Low (0-5) Physician Notification (Pre) - Physician Notified Physician Notified Date: 10/01/19 Physician Notified Time: 12:31 New Order Received: Yes (D/c home) Disposition - Disposition OB Disposition: Discharge to home Discharge Date: 10/01/19 Discharge Time: 12:37 I agree with the RN Medical Screening Exam: Yes Risk & Benefit of care provided described in d/c instruction: Yes Diagnosis: RELATED CONDITIONS, UNSPECIFIED, THIRD TRIMESTER
== END 2019-10-01 12:37 | disposition home or self-care (01) ==
LOC: FBPOP 11:51
PROVIDERS: ATTEND Obstetrics & Gynecology
DX: O26.93 Pregnancy related conditions, unspecified, third trimester (principal); Z3A.31 31 weeks gestation of pregnancy
CPT/HCPCS: 59025; 99213

== ENCOUNTER 2019-11-14 17:53 | Outpatient (CLI) | payer OTHER, BC ==
[2019-11-14 19:18] VITALS: BP 129/80; PULSE 80; RESP 16; TEMP 97.7
--- NOTE | 2019-11-15 07:02 | P.MSEPDOC ---
Presenting Problems - Arrival Data Date of Arrival on Unit: 11/14/19 Time of Arrival on Unit: 17:53 Mode of Transport: Ambulatory - Complaint OB-Reason for Admission/Chief Complaint: Possible Onset of Labor Comment: pt arrived c/o questionable labor. states she was nasueated yester and having some cramping that are around 5 minutes apart but denies rom or leaking of fluid Medical History - Information : 3 Para: 1 Term: 1 : 0 Abortions: Spontaneous or Elective: 1 Number of Living Children: 1 - Gestational Age Gestational Age by CHATO (wks/days): 38 Weeks and 0 Days Review of Systems - Review of Systems Constitutional: No problems Breast: No problems ENT: No problems Cardiovascular: No problems Respiratory: No problems Gastrointestinal: No problems Genitourinary: No problems Musculoskeletal: No problems Neurological: No problems Skin: No problems Vital Signs - Temperature Temperature: 97.7 F Temperature Source: Oral - Pulse Right Brachial Pulse Rate: 80 Pulse Assessment Method: Automatic Cuff - Respirations Respiratory Rate: 16 Oxygen Delivery Method: Room Air O2 Sat by Pulse Oximetry: 97 - Blood Pressure Right Arm Blood Pressure: 129/80 Blood Pressure Mean: 96 Blood Pressure Source: Automatic Cuff Medical Screen Scoring (Pre) - Cervical Exam Dilation: 0 cm = 0 Effacement: Exam Deferred Membranes: Intact - Uterine Contractions Frequency: N/A Duration: N/A Intensity: N/A - Maternal Vital Signs Maternal Temperature: N/A Maternal Blood Pressure: N/A Signs of Preeclampsia: Nausea/Vomiting = 1 Maternal Respirations: N/A - Maternal Trauma Maternal Trauma: N/A - Assessment - Baby A Baseline FHR: 130 Heart Rate - NICHD Category: Category I (Normal) = 0 NST: Reactive Position: N/A - Total Score - Baby A Total Score - Baby A: 1 - Total Score - Baby B Total Score - Baby B: 1 - Total Score - Baby C Total Score - Baby C: 1 - Level of Risk - Baby A Level of Risk - Baby A: Low (0-5) - Level of Risk - Baby B Level of Risk - Baby B: Low (0-5) - Level of Risk - Baby C Level of Risk - Baby C: Low (0-5) Physician Notification (Pre) - Physician Notified Physician Notified Date: 01/22/20 Physician Notified Time: 18:16 New Order Received: Yes - Notification Comment Comment: watch patient for 1 hour if no change may discharge to home undelivered Disposition - Disposition OB Disposition: Discharge to home Discharge Date: 11/14/19 Discharge Time: 19:01 I agree with the RN Medical Screening Exam: Yes Risk & Benefit of care provided described in d/c instruction: Yes Diagnosis: FALSE LABOR AT OR AFTER 37 COMPLETED WEEKS OF GESTATION (Patient was having some uncomfortable contractions at home however here they have subsided. Examination shows her cervix to be closed and thick. heart tones are category 1. Patient does appear to be quite comfortable. I discussed with her indications to return. This point there is no evidence of labor and we'll proceed with delivery and week as scheduled unless she were to go to labor and the meantime.)
== END 2019-11-14 19:01 | disposition home or self-care (01) ==
LOC: FBPOP 17:53
PROVIDERS: ATTEND Obstetrics & Gynecology
DX: O47.1 False labor at or after 37 completed weeks of gestation (principal); Z3A.38 38 weeks gestation of pregnancy
CPT/HCPCS: 59025; 99213

== ENCOUNTER 2019-11-20 03:15 | Inpatient (IN) | payer OTHER, BC ==
[2019-11-20 03:52] LABS: Amorphous Sediment,Urine Rare /hpf; Appearance,Urine Clear (Clear); Bacteria,Urine Rare /hpf; Bilirubin,Urine Negative (Negative); Blood,Urine Moderate (Negative); Color,Urine Yellow; Glucose,Urine (UA) Negative (Negative); Ketones,Urine Trace (Negative); Leukocyte Esterase,Urine Negative (Negative); Mucus,Urine Occasional /hpf; Nitrite,Urine Negative (Negative); PH, Urine 6.5 (5.0-8.0); Protein,Urine Trace (Negative); RBC,Urine 149 /hpf (0-5); Specific Gravity,Urine 1.018 (1.001-1.035); Squamous Epithelial Cell,Urine 7 /hpf (0-4); Urobilinogen,Urine <2.0 mg/dL (<2.0); WBC,Urine 2 /hpf (0-5)
[2019-11-20] MEDS: LACTATED RINGERS 1,000 ML IV SCH ×2 (04:41→23:03)
[2019-11-20 04:59] LABS: Basophils % (A) 0 %; Eosinophils # (A) 0.1 k/uL (0-0.7); Eosinophils % (A) 0 %; HCT 37.5 % (34.0-46.0); Lymphocytes # (A) 1.8 k/uL (1.0-4.8); Lymphocytes % (A) 10 %; MCH 27.5 pg (25.0-35.0); MCV 86.1 fL (80.0-100.0); Mean Platelet Volume 10.5; Monocytes # (A) 0.7 k/uL (0-1.0); Monocytes % (A) 4 %; Neutrophils # (A) 16.2 k/uL (1.3-7.7); Neutrophils % (A) 85 %; Platelet Count 189 k/uL (150-450); RBC 4.35 m/uL (3.80-5.40); RDW 14.8 % (11.5-15.5)
[2019-11-20] MEDS ORDERED: ACETAMINOPHEN IV (For NPO) 1,000 MG in EMPTY BAG 1 BAG IVPB ONE (05:00)
[2019-11-20 05:17] LABS: ALT 10 U/L (4-34); AST 19 U/L (14-36); African American GFR (CKD) >90 (>60 ml/min/1.73 sqM); Blood Urea Nitrogen 12 mg/dL (7-17); LDH 422 U/L (313-618); Magnesium 1.7 mg/dL (1.6-2.3); Non-African American GFR(CKD) >90 (>60 ml/min/1.73 sqM); Uric Acid 4.9 mg/dL (3.7-7.4)
[2019-11-20 05:33] LABS: INR 0.9 (<1.2); Prothrombin Time 9.4 sec (9.0-12.0)
[2019-11-20 05:41] LABS: Partial Thromboplastin Time 20.8 sec (22.0-30.0)
[2019-11-20] MEDS: BUTORPHANOL 1 MG/ML 1 ML VIAL IV PRN ×3 (06:03→09:52)
[2019-11-20] MEDS ORDERED: CITRIC ACID-SODIUM CITRATE 15 ML CUP PO ONE (06:13)
[2019-11-20] MEDS ORDERED: LACTATED RINGERS 1,000 ML IV ONE (06:13)
[2019-11-20] MEDS ORDERED: ONDANSETRON 4 MG/2 ML VIAL IVP PRN (06:15)
[2019-11-20] MEDS ORDERED: LACTATED RINGERS 1,000 ML IV SCH ×2 (06:15→13:02)
--- NOTE | 2019-11-20 06:23 | P.HPOB ---
History of Present Illness H&P Date: 11/20/19 Chief Complaint: Left sided back pain This patient is pleasant 24-year-old 3 para 1 female estimated date of confinement 11/28/2019 estimated gestational age 38-6/7 weeks presented to labor and delivery early this morning with complaints of left-sided back pain. Dr. De León ordered urinalysis and blood work on the patient and urinalysis consistent with possible kidney stone. Patient's having severe pains given some IV and Tylenol and IV narcotics. heart tones are category 1. Patient is having irregular contractions, but is not dilated. Patient scheduled for repeat section tomorrow. Patient's also had some elevated blood pressures on admission is thought to be secondary to pain. care otherwise has been uncomplicated. Patient's had a previous section desires repeat. Review of Systems Constitutional: Reports as per HPI Genitourinary: Reports Menstruation: Reports amenorrhea Past Medical History Past Medical History: Skin Disorder Additional Past Medical History / Comment(s): eczema on arms & legs- uses otc lotion. rt breast mass upper outer quadrant-mild discomfort History of Any Multi-Drug Resistant Organisms: None Reported Past Surgical History: Section, Ear Surgery, Tonsillectomy Additional Past Surgical History / Comment(s): ear surgery x 11 on missy. ears for tubes & polyps. wisdom teeth Past Anesthesia/Blood Transfusion Reactions: No Reported Reaction Past Psychological History: No Psychological Hx Reported Smoking Status: Never smoker Past Alcohol Use History: None Reported Past Drug Use History: None Reported - Past Family History Father Family Medical History: Hypertension Medications and Allergies Home Medications Medication Instructions Recorded Confirmed Type Acetaminophen Tab [Tylenol Tab] 650 mg PO Q6H 11/24/17 11/20/19 History Pnv,Calcium 72/Iron/Folic Acid 1 tab PO DAILY 11/24/17 11/20/19 History [ Plus Tablet] Allergies Allergy/AdvReac Type Severity Reaction Status Date / Time azithromycin [From Zithromax] Allergy Rash/Hives Verified 11/14/19 18:15 Exam Vital Signs Temp Pulse Resp BP Pulse Ox 11/20/19 04:04 97.6 F 72 18 140/81 99 Intake and Output 11/19/19 11/19/19 11/20/19 14:59 22:59 06:59 Other: Weight 88.904 kg - OBG Physical Exam Abdomen: bowel sounds normal, no diffuse tenderness, no bruit present, no guarding noted, no hepatomegaly, no splenomegaly, no mass Vagina: normal moisture Cervix: lesion Uterus: enlarged (Fundal height the office is 40 cm) Results blood work shows she is B positive, rubella immune, RPR nonreactive, hepatitis B is negative, Glucola was normal, ultrasounds have been normal, group B strep was negative. Result Diagrams: 11/20/19 04:35 11/20/19 04:35 Abnormal Lab Results - Last 24 Hours (Table) 11/20/19 11/20/19 11/20/19 Range/Units 03:27 04:35 04:35 WBC 19.0 H (3.8-10.6) k/uL Neutrophils # 16.2 H (1.3-7.7) k/uL APTT 20.8 L (22.0-30.0) sec Urine Protein Trace H (Negative) Urine Ketones Trace H (Negative) Urine Blood Moderate H (Negative) Urine RBC 149 H (0-5) /hpf Ur Squamous Epith Cells 7 H (0-4) /hpf Amorphous Sediment Rare H (None) /hpf Urine Bacteria Rare H (None) /hpf Urine Mucus Occasional H (None) /hpf Assessment and Plan Assessment: This is a pleasant 24-year-old 3 para 1 female 38-6/7 weeks gestation who was admitted this morning with severe left sided back pain and urinalysis suspicious for possible kidney stone. Patient's heart tones are category 1. Patient's also had significant blood pressure elevation that is thought to be secondary to the pain, preeclampsia blood work is negative. Due to the severe pain I'm going to proceed with delivery at this time. I'm also going to get a renal ultrasound to look for hydronephrosis. Plan is repeat low transverse section. Patient I have discussed the surgery in the office in detail including the risks of infection, bleeding, possible injury bowel, bladder, vessels, and/or other organs. Patient understands risk of DVT and pulmonary embolism. All the patient's questions are answered written consent is obtained. (1) 38 weeks gestation of Current Visit: Yes Status: Acute Code(s): Z3A.38 - 38 WEEKS GESTATION OF SNOMED Code(s): 62944872 (2) Gestational hypertension Current Visit: No Status: Acute Code(s): O13.9 - GESTATIONAL HTN W/O SIGNIFICANT PROTEINURIA, UNSP TRIMESTER SNOMED Code(s): 16416183 (3) Acute back pain Current Visit: Yes Status: Acute Code(s): M54.9 - DORSALGIA, UNSPECIFIED SNOMED Code(s): 438744411 (4) Previous delivery affecting Current Visit: Yes Status: Acute Code(s): O34.219 - MATERNAL CARE FOR UNSP TYPE SCAR FROM PREVIOUS DEL SNOMED Code(s): 652976007
[2019-11-20 07:10] LABS: Protein/Creatinine Ratio,Urine 0.2
--- NOTE | 2019-11-20 08:31 | US ---
EXAMINATION TYPE: US kidneys/renal and bladder DATE OF EXAM: 11/20/2019 COMPARISON: NONE CLINICAL HISTORY: Renal calculi, left. Left flank pain radiating to pelvis; 38 weeks EXAM MEASUREMENTS: Right Kidney: 10.6 x 6.5 x 5.4 cm Left Kidney: 12.5 x 6.1 x 6.7 cm Post Void Residual Volume: inpatient voided prior to US Right Kidney: No hydronephrosis or masses seen Left Kidney: multiple shadowing renal stones with largest noted superior pole = 0.7 x 0.8 x 0.6cm; co uple of cortical cysts seen with largest inferior pole =1.6 x 1.6 x 1.8cm; mild pelvocaliectasis, lik latanya physiologic in ; larger than right kidney. Bladder: minimally filled bladder limitedly seen with uterus IMPRESSION: 1. Mild left-sided pelvocaliectasis, likely physiologic in late . 2. Multiple nonobstructing left renal calculi the largest measuring 8 mm. 3. Cortical left renal cysts the largest measuring 1.8 cm.
[2019-11-20] MEDS ORDERED: MORPHINE SULFATE (PF) 0.3 MG/0.3 ML SYR ONE (12:15)
[2019-11-20] MEDS ORDERED: ONDANSETRON 4 MG/2 ML VIAL ONE (12:15)
[2019-11-20] MEDS ORDERED: KETOROLAC 30 MG/ML 1 ML VIAL ONE (12:15)
[2019-11-20] MEDS ORDERED: PHENYLEPHRINE-0.9% NACL SYG 1 MG/10 ML SYRINGE ONE (12:15)
[2019-11-20] MEDS ORDERED: OXYTOCIN 10 UNIT/ML 1 ML VIAL ONE (12:15)
[2019-11-20] MEDS ORDERED: METOCLOPRAMIDE 5 MG/ML 2 ML VIAL IVP PRN (13:02)
[2019-11-20] MEDS ORDERED: ZOLPIDEM 5 MG TAB PO PRN (13:02)
[2019-11-20] MEDS ORDERED: SIMETHICONE 80 MG CHEWABLE PO PRN (13:02)
[2019-11-20] MEDS ORDERED: OXYTOCIN 20 UNITS/1000 ML NS 1,000 ML IV SCH (13:02)
[2019-11-20] MEDS ORDERED: diphenhydrAMINE 25 MG CAP PO PRN (13:02)
[2019-11-20] MEDS ORDERED: HYDROcodone/APAP 5-325MG 1 EACH TAB PO PRN (13:02)
[2019-11-20] MEDS ORDERED: LANOLIN CREAM 5 GM TUBE TOPICAL PRN (13:02)
[2019-11-20] MEDS ORDERED: diphenhydrAMINE 50 MG/ML 1 ML VIAL IVP PRN (13:02)
[2019-11-20] MEDS ORDERED: ACETAMINOPHEN TAB 325 MG TAB PO PRN (13:02)
[2019-11-20] MEDS ORDERED: IBUPROFEN 600 MG TAB PO PRN (13:02)
[2019-11-20] MEDS ORDERED: NALOXONE 0.4 MG/ML 1 ML VIAL IV PRN (13:02)
--- NOTE | 2019-11-20 13:10 | P.OP ---
Date of Procedure: 11/20/19 Preoperative Diagnosis: #1: 38-6/7 weeks . #2: Severe left flank pain with kidney stones. #3: Gestational hypertension. #4: Previous section desires repeat Postoperative Diagnosis: Same Procedure(s) Performed: Repeat low transverse section Anesthesia: spinal Surgeon: Vahe Fagan Isotope Hydrologist #1: Yessica Dumont Estimated Blood Loss (ml): 800 Urine output (ml): 100 Pathology: other (Placenta) Condition: stable Disposition: floor Indications for Procedure: Please see dictated H&P for intimate details of this patient's admission. Brief summary this is a pleasant 24-year-old 3 para 1 female 38-6/7 weeks gestation admitted earlier this morning with severe left flank pain. Patient's heart tones are category 1. Renal ultrasound shows kidney stone the left. Patient also had some significant blood pressure elevations on admission however preeclampsia labs were negative and this is thought to be secondary to her pain. Due to her being scheduled for a tomorrow recommend she proceed with delivery at this time. Patient understands the surgery and risks and a written consent was obtained. Operative Findings: This is a vigorous viable male Apgars 9 and 9 delivery time was 1232 hrs. Infant had nuchal cord 1. appeared grossly normal. Description of Procedure: This patient has a Merida catheter placed to straight drain. She is subsequently taken to the operating room where she sat up and spinal anesthetic is administered without incident. With an adequate level of anesthesia she has abdominal prep and drape. Scalpels and taken a Pfannenstiel skin incision is then made. A second scalpel is taken down the fascia the fascia scored with a knife. Fascial incision extended bilaterally using the Blair scissors. Fascia is dissected sharply off the rectus muscles. Rectus muscles are peritoneum identified and entered sharply. Peritoneal incision extended superior and inferior without difficulty. Bladder blade is then placed. Scalpels and taken low transverse uterine incision is then made. Using a hemostat I enter the uterine cavity bluntly and there is loss of clear fluid. This incision is extended bluntly and the infant's head was guided through the incision with fundal pressure. Mouth and nares are bulb suctioned. There is a loose nuchal cord which is reduced. We then have deliver the rest this 's body was fundal pressure. This is a vigorous viable male infant Apgars are 9 and 9 delivery time was 1232 hrs. infant has spontaneous respiration and good cry and grossly appears normal. Umbilical cord is doubly clamped and cut does appear to be trivascular. Placenta is then manually extracted intact. Uterine cavity is inspected found to be clear of all debris. Uterine incision is then closed using 0 Vicryl running locked fashion 2 layers. Excellent hemostasis is noted. Excess fluid is removed from the abdomen and pelvis. Uterus tubes and ovaries appear normal for term gestation. Uterus placed back into the abdomen. Parietal peritoneum was then identified and closed using 0 Vicryl running fashion. Rectus muscles reapproximated Vicryl interrupted fashion. Fascia is then closed using 0 PDS. Fascial incision is intact and hemostatic. His tissues and closed using a 3-0 Vicryl. Skin is and closed using rosario. All counts are correct 3. There are no complications. and mother are taken to the birthing suite in satisfactory condition.
[2019-11-20] MEDS: KETOROLAC 30 MG/ML 1 ML VIAL IVP PRN (18:30)
--- NOTE | 2019-11-20 21:22 | P.MSEPDOC ---
Presenting Problems - Arrival Data Date of Arrival on Unit: 11/20/19 Time of Arrival on Unit: 05:27 Mode of Transport: Portable - Complaint OB-Reason for Admission/Chief Complaint: Pain Comment: Back pain 6/10 on the left side that radiates to the front. Medical History - Information : 3 Para: 1 Term: 1 : 0 Abortions: Spontaneous or Elective: 1 Number of Living Children: 1 - Gestational Age Gestational Age by CHATO (wks/days): 38 Weeks and 6 Days Review of Systems - Review of Systems Constitutional: No problems Breast: No problems ENT: No problems Cardiovascular: No problems Respiratory: No problems Gastrointestinal: No problems Genitourinary: No problems Musculoskeletal: No problems Neurological: No problems Skin: No problems Vital Signs - Temperature Temperature: 97.7 F Temperature Source: Temporal Artery Scan - Pulse Right Brachial Pulse Rate: 97 Pulse Assessment Method: Automatic Cuff - Respirations Respiratory Rate: 16 Oxygen Delivery Method: Room Air - Blood Pressure Right Arm Blood Pressure: 138/86 Blood Pressure Mean: 103 Blood Pressure Source: Automatic Cuff Medical Screen Scoring (Pre) - Cervical Exam Dilation: 0 cm = 0 Effacement: Exam Deferred Membranes: Intact - Uterine Contractions Frequency: > or = 36 weeks =2 Duration: > 40 seconds = 2 Intensity: N/A - Maternal Vital Signs Maternal Temperature: N/A Maternal Blood Pressure: Systolic >139 = 2 Signs of Preeclampsia: Nausea/Vomiting = 1 - Maternal Trauma Maternal Trauma: N/A - Assessment - Baby A Baseline FHR: 120 Heart Rate - NICHD Category: Category I (Normal) = 0 NST: Reactive Position: N/A Station: N/A - Total Score - Baby A Total Score - Baby A: 7 - Total Score - Baby B Total Score - Baby B: 7 - Total Score - Baby C Total Score - Baby C: 7 - Level of Risk - Baby A Level of Risk - Baby A: Medium (6-9) - Level of Risk - Baby B Level of Risk - Baby B: Medium (6-9) - Level of Risk - Baby C Level of Risk - Baby C: Medium (6-9) Physician Notification (Pre) - Physician Notified New Order Received: No - Notification Comment Comment: Orders to start iv LR at 150 ml/hr, 1000 mg offirmev once, pih labs. Physician Notification (Post) - Physician Notified Physician Notified Date: 11/20/19 Physician Notified Time: 05:27 Spoke With: Rylan New Order Received: Yes - Notification Comment Comment: Admit for repeat c/s at 1200. Disposition - Disposition OB Disposition: Admit I agree with the RN Medical Screening Exam: Yes Risk & Benefit of care provided described in d/c instruction: Yes Diagnosis: CALCULUS OF KIDNEY
[2019-11-20] MEDS: SENNOSIDES-DOCUSATE SODIUM 1 EACH TAB PO SCH (23:04)
[2019-11-21] MEDS: KETOROLAC 30 MG/ML 1 ML VIAL IVP PRN ×2 (02:29→08:58)
[2019-11-21 06:15] LABS: Basophils % (A) 0 %; Eosinophils # (A) 0.1 k/uL (0-0.7); Eosinophils % (A) 1 %; HCT 32.3 % (34.0-46.0); HGB 10.3 gm/dL (11.4-16.0); Lymphocytes # (A) 2.3 k/uL (1.0-4.8); Lymphocytes % (A) 17 %; MCH 27.8 pg (25.0-35.0); MCHC 31.8 g/dL (31.0-37.0); MCV 87.3 fL (80.0-100.0); Mean Platelet Volume 10.5; Monocytes # (A) 0.5 k/uL (0-1.0); Monocytes % (A) 4 %; Neutrophils # (A) 10.6 k/uL (1.3-7.7); Neutrophils % (A) 77 %; Platelet Count 189 k/uL (150-450); RDW 14.9 % (11.5-15.5); WBC 13.9 k/uL (3.8-10.6)
--- NOTE | 2019-11-21 06:35 | P.PNOBGPC ---
Subjective - Subjective Patient reports: Reports appetite normal, Reports voiding normally, Reports pain well controlled, Reports ambulating normally : doing well Objective - Vital Signs Latest vital signs: Vital Signs Temp Pulse Resp BP Pulse Ox 11/21/19 03:39 98.4 F 91 16 123/72 11/21/19 00:00 97.5 F L 85 18 115/69 98 11/20/19 21:22 97.7 F 97 16 138/86 11/20/19 20:00 97.9 F 82 18 130/70 97 11/20/19 16:00 97.7 F 97 16 138/86 11/20/19 15:00 75 15 131/78 11/20/19 14:30 96 F L 78 16 138/86 11/20/19 13:56 80 15 119/63 98 11/20/19 13:45 78 15 131/84 98 11/20/19 13:30 78 15 135/98 97 11/20/19 13:15 82 16 126/75 11/20/19 13:00 96.5 F L 78 15 128/77 98 Intake and Output 11/20/19 11/20/19 11/21/19 14:59 22:59 06:59 Output Total 200 1200 Balance -200 -1200 Output: Urine 200 1200 Straight 200 Other: Voiding Method Indwelling Catheter # Voids 0 - Exam Lungs: bilateral: normal Chest: Normal S1, Normal S2 Extremities: Present: normal Abdomen: Present: normal appearance, soft. Absent: distention, tenderness Incision: Present: normal, dry, intact Uterus: Present: normal, firm - Labs Labs: Abnormal Lab Results - Last 24 Hours (Table) 11/21/19 Range/Units 05:49 WBC 13.9 H (3.8-10.6) k/uL RBC 3.70 L (3.80-5.40) m/uL Hgb 10.3 L (11.4-16.0) gm/dL Hct 32.3 L (34.0-46.0) % Neutrophils # 10.6 H (1.3-7.7) k/uL Assessment and Plan Assessment: Post operative day #1. Patient is resting without complaints. Vital signs are stable and she is afebrile. Uterus is firm nontender and her incision is intact and dry. Patient's having no pain from her kidney stones today, whether this is secondary to the Duramorph spinal or the fact that her's delivery has facilitated relief. Plan today is to check a CBC, allow the patient ambulate, and allow the patient to shower. Urology will see the patient today for consultation of her kidney stones. (1) 38 weeks gestation of Current Visit: Yes Status: Acute Code(s): Z3A.38 - 38 WEEKS GESTATION OF SNOMED Code(s): 83234339 (2) Gestational hypertension Current Visit: No Status: Acute Code(s): O13.9 - GESTATIONAL HTN W/O SIGNIFICANT PROTEINURIA, UNSP TRIMESTER SNOMED Code(s): 53373941 (3) Acute back pain Current Visit: Yes Status: Acute Code(s): M54.9 - DORSALGIA, UNSPECIFIED SNOMED Code(s): 118686167 (4) Previous delivery affecting Current Visit: Yes Status: Acute Code(s): O34.219 - MATERNAL CARE FOR UNSP TYPE SCAR FROM PREVIOUS DEL SNOMED Code(s): 756644271
[2019-11-21 12:55] VITALS: RESP 20
[2019-11-21] MEDS: SENNOSIDES-DOCUSATE SODIUM 1 EACH TAB PO SCH (15:09)
[2019-11-21 16:18] VITALS: BP 124/77; PULSE 115; TEMP 97.7
--- NOTE | 2019-11-21 17:25 | P.DS ---
Providers Date of admission: 11/20/19 05:30 Expected date of discharge: 11/21/19 Attending physician: Vahe Fagan Consults: 11/20/19 13:10 Consult Physician Routine Consulting Provider: Joseph Rider Consult Reason/Comments: Left kidney stones. May see consult tommorow (non- emergent) Do you want consulting provider notified?: Yes Primary care physician: Stated None Hospital Course: Elen is overall doing well at this time. Her baby however is being transferred to a tertiary care center and she would like to be discharged with the baby. She has voided now and she will try and void again before she is discharged. We did psychosocial rehabilitation counselor her that we were more than happy to keep her and make sure that there are no other problems. Urology did see her with her kidney stones but did not offer any immediate treatment options. She is aware should she have any difficulties in urinating problems pain anything like that she may need to go through the emergency room for evaluation that she is adamant that she be discharged with her baby. I have no other recent keep her in the hospital as her vital signs are otherwise stable and she is afebrile. She'll need follow-up with the office in a few days that she can have her rosario removed. All the questions were answered for her at this time and prescription for [place] and Motrin were sent. Pharmacy for her to use. There is no significant change to her physical exam from Dr. Barnett's visit this morning. Patient Condition at Discharge: Good Plan - Discharge Summary New Discharge Prescriptions: New Ibuprofen [Motrin] 600 mg PO Q6HR PRN #40 tab PRN Reason: Mild Pain Or Fever >= 100.5 HYDROcodone/APAP 5-325MG [[place] 5-325] 1 each PO Q4HR PRN #18 tab PRN Reason: Moderate Pain No Action Pnv,Calcium 72/Iron/Folic Acid [ Plus Tablet] 1 tab PO DAILY Acetaminophen Tab [Tylenol Tab] 650 mg PO Q6H Discharge Medication List Acetaminophen Tab [Tylenol Tab] 650 mg PO Q6H 11/24/17 [History] Pnv,Calcium 72/Iron/Folic Acid [ Plus Tablet] 1 tab PO DAILY 11/24/17 [History] HYDROcodone/APAP 5-325MG [[place] 5-325] 1 each PO Q4HR PRN #18 tab 11/21/19 [Rx] Ibuprofen [Motrin] 600 mg PO Q6HR PRN #40 tab 11/21/19 [Rx] Follow up Appointment(s)/Referral(s): Vahe Fagan MD [STAFF PHYSICIAN] - 6 Weeks (Please see me also in about 1 week for an incision check.) Patient Instructions/Handouts: (DC) Activity/Diet/Wound Care/Special Instructions: No strenuous activity or heavy lifting. Please call if any fever, chills, excessive vaginal bleeding, and/or abdominal pain. Discharge Disposition: HOME SELF-CARE
--- NOTE | 2019-11-21 18:16 | P.GSCN ---
History of Present Illness Consult date: 11/21/19 Reason for Consult: Left renal calculi History of present illness: Ms. Michelle is a 24-year-old female, that presented to labor and delivery yesterday with complaints of left-sided back pain. She underwent uncomplicated yesterday. She underwent a renal bladder ultrasound for her left flank pain which demonstrated mild swelling of the left collecting system, nonobstructive renal calculi. She indicated that her pain was associated with nausea. Denies any urinary symptoms including dysuria or hematuria. Denies any history of neph rolithiasis. She indicated following her her pain has resolved, she denies any pain at this time. She is tolerating a diet. Review of Systems - Constitutional Denies chills, Denies fever - EENT Ears, nose, mouth and throat: Denies dysphagia, Denies headache - Cardiovascular Denies chest pain, Denies leg edema - Respiratory Denies cough, Denies dyspnea - Gastrointestinal Denies abdominal pain, Denies nausea, Denies vomiting - Genitourinary Genitourinary: Reports difficulty voiding, Reports incomplete emptying, Denies flank pain, Denies hematuria - Neurological Denies confusion, Denies seizures, Denies weakness - Psychiatric Denies confusion, Denies depression Past Medical History Past Medical History: Skin Disorder Additional Past Medical History / Comment(s): eczema on arms & legs- uses otc lotion. rt breast mass upper outer quadrant-mild discomfort History of Any Multi-Drug Resistant Organisms: None Reported Past Surgical History: Section, Ear Surgery, Tonsillectomy Additional Past Surgical History / Comment(s): ear surgery x 11 on missy. ears for tubes & polyps. wisdom teeth Past Anesthesia/Blood Transfusion Reactions: No Reported Reaction Past Psychological History: No Psychological Hx Reported Smoking Status: Never smoker Past Alcohol Use History: None Reported Past Drug Use History: None Reported - Past Family History Father Family Medical History: Hypertension Medications and Allergies Home Medications Medication Instructions Recorded Confirmed Type Acetaminophen Tab [Tylenol Tab] 650 mg PO Q6H 11/24/17 11/20/19 History Pnv,Calcium 72/Iron/Folic Acid 1 tab PO DAILY 11/24/17 11/20/19 History [ Plus Tablet] HYDROcodone/APAP 5-325MG [[place] 1 each PO Q4HR PRN #18 tab 11/21/19 Rx 5-325] Ibuprofen [Motrin] 600 mg PO Q6HR PRN #40 tab 11/21/19 Rx Allergies Allergy/AdvReac Type Severity Reaction Status Date / Time azithromycin [From Zithromax] Allergy Rash/Hives Verified 11/14/19 18:15 Surgical - Exam Vital Signs Temp Pulse Resp BP Pulse Ox 97.6 F 72 18 140/81 99 11/20/19 04:04 11/20/19 04:04 11/20/19 04:04 11/20/19 04:04 11/20/19 04:04 - General well developed, well nourished, no distress, no pain - Eyes normal ocular movement, no pale - ENT normal mucosa, no hearing loss - Respiratory normal expansion, normal respiratory effort - Abdomen Abdomen: soft, no distended - Neurologic normal sensation, no confused - Psychiatric oriented to time, oriented to person, oriented to place Results - Labs 11/21/19 05:49 11/20/19 04:35 Abnormal Lab Results - Last 24 Hours (Table) 11/21/19 Range/Units 05:49 WBC 13.9 H (3.8-10.6) k/uL RBC 3.70 L (3.80-5.40) m/uL Hgb 10.3 L (11.4-16.0) gm/dL Hct 32.3 L (34.0-46.0) % Neutrophils # 10.6 H (1.3-7.7) k/uL Assessment and Plan Assessment: 24 yo female that POD #1 S/P . She presented with left flank pain. RBUS showed mild swelling of collecting system and multiple non-obstructive renal calculi. Her pain resolved following her she is asymptomatic today. -Ok for discharge from urology standpoint will repeat RBUS in 2-3 weeks, if there is evidence of stone or hydronephrosis -F/U as an outpatient in 3-4 weeks
== END 2019-11-21 18:25 | disposition home or self-care (01) | DRG 787 ==
LOC: FBPOP 03:15 → 4FBP 05:30
PROVIDERS: ADMIT Obstetrics & Gynecology; ATTEND Obstetrics & Gynecology
PROC: 10D00Z1 Extraction of Products of Conception, Low, Open Approach (ICD-10-PCS; principal; 2019-11-20 12:10)
DX: O13.4 Gestational [pregnancy-induced] hypertension without significant proteinuria, complicating childbirth (principal); O26.833 Pregnancy related renal disease, third trimester; O69.81X0 Labor and delivery complicated by cord around neck, without compression, not applicable or unspecified; O34.211 Maternal care for low transverse scar from previous cesarean delivery; N20.0 Calculus of kidney; N85.8 Other specified noninflammatory disorders of uterus; Z37.0 Single live birth; Z3A.38 38 weeks gestation of pregnancy; N63.10 Unspecified lump in the right breast, unspecified quadrant; L30.9 Dermatitis, unspecified; Z79.899 Other long term (current) drug therapy; Z98.890 Other specified postprocedural states; Z87.891 Personal history of nicotine dependence; Z88.1 Allergy status to other antibiotic agents; Z82.49 Family history of ischemic heart disease and other diseases of the circulatory system
CPT/HCPCS: 59025; 76770; 81001; 82565; 82570; 83615; 83735; 84156; 84450; 84460; 84520; 84550; 85025; 85384; 85610; 85730; 86850; 86900; 86901; 88307; 96360; 96366; 99215

== ENCOUNTER → 2020-01-03 | Outpatient (CLI) | payer OTHER, BC ==
--- NOTE | 2020-01-04 07:11 | US ---
EXAMINATION TYPE: US kidneys/renal and bladder DATE OF EXAM: 01/03/2020 COMPARISON: US 2019 CLINICAL HISTORY: N20.0 CALCULUS OF KIDNEY. History kidney stones, surgery 3 weeks ago to remove ston es, left stent removed 8 days ago, patient states she is still having bladder spasms. EXAM MEASUREMENTS: Right Kidney: 9.7 x 5.1 x 5.3 cm Left Kidney: 10.3 x 5.0 x 4.5 cm Right Kidney: 0.4cm echogenic focus medial mid pole Left Kidney: multiple echogenic foci seen with largest measuring 0.5cm, 1.0cm lateral cystic area and 1.4cm inferior pole cystic area seen Bladder: wnl Bilateral Jets seen: yes There is no evidence for hydronephrosis at this point in time. The urinary bladder is anechoic. Saad ateral ureteral jets are seen. IMPRESSION: 1. No hydronephrosis of either kidney. Bilateral nonobstructing renal calculi are again seen. 2. Redemonstration of left renal cortical cysts.
== END | disposition home or self-care (01) ==
LOC: RADUSWWP 15:28
PROVIDERS: ATTEND Urology
DX: N20.0 Calculus of kidney (principal); N28.1 Cyst of kidney, acquired
CPT/HCPCS: 76770

== ENCOUNTER → 2020-06-02 | Outpatient (CLI) | payer OTHER, BC ==
--- NOTE | 2020-06-02 14:09 | XR ---
EXAMINATION TYPE: XR KUB DATE OF EXAM: 06/02/2020 2:04 PM CLINICAL HISTORY: Left greater than right flank pain. History of kidney stones. TECHNIQUE: Single supine KUB image of the abdomen is obtained. COMPARISON: None. FINDINGS: Punctate densities suspicious for small renal calculi bilaterally. Suspect at least 2 calcu li measuring up to 3 mm in size right kidney and single 2 mm calculus upper pole of the left kidney. Overall nonobstructive bowel gas pattern. Visualized osseous structures are intact. Lung bases are no t included. IMPRESSION: As above.
== END | disposition home or self-care (01) ==
LOC: RADXRMAIN 13:49
PROVIDERS: ATTEND Urology
DX: N20.0 Calculus of kidney (principal)
CPT/HCPCS: 74018

== ENCOUNTER 2020-06-21 11:31 | Emergency (ER) | payer OTHER, BC ==
[2020-06-21 11:38] VITALS: RESP 18
[2020-06-21] MEDS ORDERED: KETOROLAC 15 MG/ML 1 ML VIAL IVP STA (11:58)
[2020-06-21] MEDS ORDERED: SODIUM CHLORIDE 0.9% 2,000 ML IV STA (11:58)
[2020-06-21] MEDS ORDERED: ONDANSETRON 4 MG/2 ML VIAL IVP STA (11:58)
--- NOTE | 2020-06-21 12:12 | ED ---
Abdominal Pain HPI - General Chief Complaint: Abdominal Pain Stated Complaint: kidney stones Time Seen by Provider: 06/21/20 11:42 Source: patient, RN notes reviewed Mode of arrival: ambulatory Limitations: no limitations - History of Present Illness Initial Comments: This is a 25-year-old female presents emergency Department chief complaint of right flank pain. Patient states that she struggle with kidney stone since October. Patient states that she was doing better in which she canceled her procedure with and states she had she switched her urology to [facility]. Patient states that her last days she's had increasing pain states that she cannot tolerate was not controlled with oral Toradol yesterday. She's been nauseated. Patient states that she present today without taking any medications. Patient states that she feels like she is passing a stone. Patient did have prior surgery for stone removal. Patient denies any fevers or chills denies any chest pain or shortness breath. - Related Data Home Medications Medication Instructions Recorded Confirmed Acetaminophen Tab [Tylenol Tab] 650 mg PO Q6H 11/24/17 11/20/19 Pnv,Calcium 72/Iron/Folic Acid 1 tab PO DAILY 11/24/17 11/20/19 [ Plus Tablet] Previous Rx's Medication Instructions Recorded HYDROcodone/APAP 5-325MG [[place] 1 each PO Q4HR PRN #18 tab 11/21/19 5-325] Ibuprofen [Motrin] 600 mg PO Q6HR PRN #40 tab 11/21/19 Ketorolac [Toradol] 10 mg PO Q8HR #10 tab 12/01/19 Metoclopramide [Reglan] 10 mg PO TID PRN #15 tab 12/01/19 Ondansetron Odt [Zofran Odt] 4 mg PO Q8HR PRN #10 tab 06/21/20 Tamsulosin [Flomax] 0.4 mg PO DAILY #7 cap 06/21/20 Allergies Allergy/AdvReac Type Severity Reaction Status Date / Time azithromycin [From Zithromax] Allergy Rash/Hives Verified 06/21/20 11:36 Review of Systems ROS Statement: Those systems with pertinent positive or pertinent negative responses have been documented in the HPI. ROS Other: All systems not noted in ROS Statement are negative. Past Medical History Past Medical History: Skin Disorder Additional Past Medical History / Comment(s): eczema on arms & legs- uses otc lotion. rt breast mass upper outer quadrant-mild discomfort History of Any Multi-Drug Resistant Organisms: None Reported Past Surgical History: Section, Ear Surgery, Tonsillectomy Additional Past Surgical History / Comment(s): ear surgery x 11 on missy. ears for tubes & polyps, kidney stones. wisdom teeth Past Anesthesia/Blood Transfusion Reactions: No Reported Reaction Past Psychological History: No Psychological Hx Reported Smoking Status: Never smoker Past Alcohol Use History: None Reported Past Drug Use History: None Reported - Past Family History Father Family Medical History: Hypertension General Exam Limitations: no limitations General appearance: alert, in no apparent distress Head exam: Present: atraumatic, normocephalic, normal inspection Eye exam: Present: normal appearance, PERRL, EOMI. Absent: scleral icterus, conjunctival injection, periorbital swelling ENT exam: Present: normal exam, mucous membranes moist Neck exam: Present: normal inspection, full ROM. Absent: tenderness, meningismus, lymphadenopathy Respiratory exam: Present: normal lung sounds bilaterally. Absent: respiratory distress, wheezes, rales, rhonchi, stridor Cardiovascular Exam: Present: regular rate, normal rhythm, normal heart sounds. Absent: systolic murmur, diastolic murmur, rubs, gallop, clicks GI/Abdominal exam: Present: soft, tenderness (Mild right-sided), normal bowel sounds. Absent: distended, guarding, rebound, rigid Back exam: Present: CVA tenderness (R). Absent: CVA tenderness (L) Neurological exam: Present: alert Skin exam: Present: warm, dry, intact, normal color. Absent: rash Course Vital Signs 06/21/20 06/21/20 11:36 11:38 Temperature 98.4 F Pulse Rate 89 Respiratory 18 18 Rate Blood Pressure 143/89 O2 Sat by Pulse 96 Oximetry Medical Decision Making - Medical Decision Making Patient reevaluated patient rested comfortably no signs distress. Patient's pains improved. Patient has had hematuria in symptoms consistent with ureteral calculi. Patient we discharged in stable condition with close follow-up. - Lab Data Result diagrams: 06/21/20 12:05 06/21/20 12:05 Lab Results 06/21/20 06/21/20 06/21/20 Range/Units 12:05 12:05 12:05 WBC 9.0 (3.8-10.6) k/uL RBC 5.41 H (3.80-5.40) m/uL Hgb 14.6 (11.4-16.0) gm/dL Hct 44.9 (34.0-46.0) % MCV 83.1 (80.0-100.0) fL MCH 27.0 (25.0-35.0) pg MCHC 32.5 (31.0-37.0) g/dL RDW 14.1 (11.5-15.5) % Plt Count 215 (150-450) k/uL Neutrophils % 71 % Lymphocytes % 21 % Monocytes % 4 % Eosinophils % 1 % Basophils % 1 % Neutrophils # 6.4 (1.3-7.7) k/uL Lymphocytes # 1.9 (1.0-4.8) k/uL Monocytes # 0.4 (0-1.0) k/uL Eosinophils # 0.1 (0-0.7) k/uL Basophils # 0.1 (0-0.2) k/uL Sodium (137-145) mmol/L Potassium (3.5-5.1) mmol/L Chloride (98-107) mmol/L Carbon Dioxide (22-30) mmol/L Anion Gap mmol/L BUN (7-17) mg/dL Creatinine (0.52-1.04) mg/dL Est GFR (CKD-EPI)AfAm (>60 ml/min/1.73 sqM) Est GFR (CKD-EPI)NonAf (>60 ml/min/1.73 sqM) Glucose (74-99) mg/dL Calcium (8.4-10.2) mg/dL Total Bilirubin (0.2-1.3) mg/dL AST (14-36) U/L ALT (4-34) U/L Alkaline Phosphatase (38-126) U/L Total Protein (6.3-8.2) g/dL Albumin (3.5-5.0) g/dL Lipase (23-300) U/L Urine Color Yellow Urine Appearance Clear (Clear) Urine pH 5.0 (5.0-8.0) Ur Specific [place] 1.010 (1.001-1.035) Urine Protein Negative (Negative) Urine Glucose (UA) Negative (Negative) Urine Ketones Negative (Negative) Urine Blood Large H (Negative) Urine Nitrite Negative (Negative) Urine Bilirubin Negative (Negative) Urine Urobilinogen <2.0 (<2.0) mg/dL Ur Leukocyte Esterase Negative (Negative) Urine RBC >182 H (0-5) /hpf Urine WBC 6 H (0-5) /hpf Ur Squamous Epith Cells <1 (0-4) /hpf Urine Bacteria Occasional H (None) /hpf Urine HCG, Qual Not Detected (Not Detectd) 06/21/20 Range/Units 12:05 WBC (3.8-10.6) k/uL RBC (3.80-5.40) m/uL Hgb (11.4-16.0) gm/dL Hct (34.0-46.0) % MCV (80.0-100.0) fL MCH (25.0-35.0) pg MCHC (31.0-37.0) g/dL RDW (11.5-15.5) % Plt Count (150-450) k/uL Neutrophils % % Lymphocytes % % Monocytes % % Eosinophils % % Basophils % % Neutrophils # (1.3-7.7) k/uL Lymphocytes # (1.0-4.8) k/uL Monocytes # (0-1.0) k/uL Eosinophils # (0-0.7) k/uL Basophils # (0-0.2) k/uL Sodium 138 (137-145) mmol/L Potassium 4.2 (3.5-5.1) mmol/L Chloride 107 (98-107) mmol/L Carbon Dioxide 22 (22-30) mmol/L Anion Gap 9 mmol/L BUN 9 (7-17) mg/dL Creatinine 0.65 (0.52-1.04) mg/dL Est GFR (CKD-EPI)AfAm >90 (>60 ml/min/1.73 sqM) Est GFR (CKD-EPI)NonAf >90 (>60 ml/min/1.73 sqM) Glucose 96 (74-99) mg/dL Calcium 9.5 (8.4-10.2) mg/dL Total Bilirubin 0.5 (0.2-1.3) mg/dL AST 21 (14-36) U/L ALT 19 (4-34) U/L Alkaline Phosphatase 92 (38-126) U/L Total Protein 7.4 (6.3-8.2) g/dL Albumin 4.5 (3.5-5.0) g/dL Lipase 141 (23-300) U/L Urine Color Urine Appearance (Clear) Urine pH (5.0-8.0) Ur Specific [place] (1.001-1.035) Urine Protein (Negative) Urine Glucose (UA) (Negative) Urine Ketones (Negative) Urine Blood (Negative) Urine Nitrite (Negative) Urine Bilirubin (Negative) Urine Urobilinogen (<2.0) mg/dL Ur Leukocyte Esterase (Negative) Urine RBC (0-5) /hpf Urine WBC (0-5) /hpf Ur Squamous Epith Cells (0-4) /hpf Urine Bacteria (None) /hpf Urine HCG, Qual (Not Detectd) Disposition Clinical Impression: Kidney stone on right side Disposition: HOME SELF-CARE Condition: Stable Instructions (If sedation given, give patient instructions): Kidney Stones (ED) Additional Instructions: Please return to the Emergency Department if symptoms worsen or any other concerns. Prescriptions: Tamsulosin [Flomax] 0.4 mg PO DAILY #7 cap Ondansetron Odt [Zofran Odt] 4 mg PO Q8HR PRN #10 tab PRN Reason: Nausea Is patient prescribed a controlled substance at d/c from ED?: No Referrals: Seamus Rainey DO [Primary Care Provider] - 1-2 days Time of Disposition: 12:45
[2020-06-21 12:17] LABS: Basophils # (A) 0.1 k/uL (0-0.2); Basophils % (A) 1 %; Eosinophils # (A) 0.1 k/uL (0-0.7); Eosinophils % (A) 1 %; HCT 44.9 % (34.0-46.0); HGB 14.6 gm/dL (11.4-16.0); Lymphocytes # (A) 1.9 k/uL (1.0-4.8); Lymphocytes % (A) 21 %; MCHC 32.5 g/dL (31.0-37.0); MCV 83.1 fL (80.0-100.0); Mean Platelet Volume 9.5; Monocytes # (A) 0.4 k/uL (0-1.0); Monocytes % (A) 4 %; Neutrophils # (A) 6.4 k/uL (1.3-7.7); Neutrophils % (A) 71 %; Platelet Count 215 k/uL (150-450); RBC 5.41 m/uL (3.80-5.40); RDW 14.1 % (11.5-15.5)
[2020-06-21 12:25] LABS: ALT 19 U/L (4-34); AST 21 U/L (14-36); African American GFR (CKD) >90 (>60 ml/min/1.73 sqM); Albumin 4.5 g/dL (3.5-5.0); Alkaline Phosphatase 92 U/L (38-126); Anion Gap 9 mmol/L; Blood Urea Nitrogen 9 mg/dL (7-17); Calcium 9.5 mg/dL (8.4-10.2); Carbon Dioxide 22 mmol/L (22-30); Chloride 107 mmol/L (98-107); Glucose 96 mg/dL (74-99); Non-African American GFR(CKD) >90 (>60 ml/min/1.73 sqM); Potassium 4.2 mmol/L (3.5-5.1); Sodium 138 mmol/L (137-145); Total Bilirubin 0.5 mg/dL (0.2-1.3); Total Protein 7.4 g/dL (6.3-8.2)
[2020-06-21 12:26] LABS: Appearance,Urine Clear (Clear); Bacteria,Urine Occasional /hpf; Bilirubin,Urine Negative (Negative); Blood,Urine Large (Negative); Color,Urine Yellow; Glucose,Urine (UA) Negative (Negative); Ketones,Urine Negative (Negative); Leukocyte Esterase,Urine Negative (Negative); Nitrite,Urine Negative (Negative); Protein,Urine Negative (Negative); RBC,Urine >182 /hpf (0-5); Squamous Epithelial Cell,Urine <1 /hpf (0-4); Urobilinogen,Urine <2.0 mg/dL (<2.0); WBC,Urine 6 /hpf (0-5)
--- NOTE | 2020-06-21 12:32 | XR ---
EXAMINATION TYPE: XR KUB DATE OF EXAM: 06/21/2020 Comparison: 06/02/2020 Clinical History: 25-year-old female right flank pain Findings: Nonobstructive bowel gas pattern. No evidence for free air. Mild overall stool burden. No suspicious calcifications identified. Impression: Mild stool burden. No evidence for free air or bowel obstruction. No definite suspicious calcificatio ns are clearly identified.
[2020-06-21] MEDS ORDERED: ACET/COD 300 MG/30 MG STARTER PACK 6 TAB BTL PO STA (12:44)
[2020-06-21 12:58] VITALS: BP 115/70; PULSE 66; TEMP 97.8
== END 2020-06-21 13:02 | disposition home or self-care (01) ==
LOC: EC 11:31
DX: N20.0 Calculus of kidney (principal); Z79.899 Other long term (current) drug therapy; Z88.1 Allergy status to other antibiotic agents; Z87.442 Personal history of urinary calculi
CPT/HCPCS: 36415; 80053; 83690; 85025; 81001; 81025; 74018; 99284; 96374; 96375; 96361; J2405; J1885

== ENCOUNTER 2020-06-24 13:52 | Emergency (ER) | payer OTHER ==
[2020-06-24 14:02] VITALS: RESP 16
--- NOTE | 2020-06-24 14:09 | ED ---
Female Urogenital HPI - General Chief complaint: Urogenital Stated complaint: Kidney Stones Time Seen by Provider: 06/24/20 14:06 Source: patient Mode of arrival: ambulatory Limitations: no limitations - History of Present Illness Initial comments: Patient is a 25-year-old female presenting to the emergency room with a chief complaint of kidney stone pain. Patient reports she has history of stones and sees a urologist, Dr. Gan, from the [facility]. Patient reports about one month ago she had a KUB that revealed renal stones. 3 days ago, she developed right-sided flank pain that radiated from the right-sided kidney region across to the groin. Patient reports this was reminiscent of her previous kidney stone pain. Patient states she came to the emergency department and had a KUB which revealed no signs of a renal stone. Patient reports the pain has not subsided since. States she did feel nausea and did take Zofran which helped resolve the symptoms. Denies any vomiting. States the pain is gradually increasing severity. Denies any fevers or chills. States she is currently on her menstrual period which started on June 21 which could potentially explain the blood in the urine. However, she states that she is jessica ost certain that this is a kidney stone. Denies any vaginal discharge or foul smell. - Related Data Home Medications Medication Instructions Recorded Confirmed Acetaminophen Tab [Tylenol Tab] 650 mg PO Q6H 11/24/17 11/20/19 Pnv,Calcium 72/Iron/Folic Acid 1 tab PO DAILY 11/24/17 11/20/19 [ Plus Tablet] Previous Rx's Medication Instructions Recorded HYDROcodone/APAP 5-325MG [[place] 1 each PO Q4HR PRN #18 tab 11/21/19 5-325] Ibuprofen [Motrin] 600 mg PO Q6HR PRN #40 tab 11/21/19 Ketorolac [Toradol] 10 mg PO Q8HR #10 tab 12/01/19 Metoclopramide [Reglan] 10 mg PO TID PRN #15 tab 12/01/19 Ondansetron Odt [Zofran Odt] 4 mg PO Q8HR PRN #10 tab 06/21/20 Tamsulosin [Flomax] 0.4 mg PO DAILY #7 cap 06/21/20 Allergies Allergy/AdvReac Type Severity Reaction Status Date / Time azithromycin [From Zithromax] Allergy Rash/Hives Verified 06/24/20 14:02 Review of Systems ROS Statement: Those systems with pertinent positive or pertinent negative responses have been documented in the HPI. ROS Other: All systems not noted in ROS Statement are negative. Past Medical History Past Medical History: Skin Disorder Additional Past Medical History / Comment(s): eczema on arms & legs- uses otc lotion. rt breast mass upper outer quadrant-mild discomfort History of Any Multi-Drug Resistant Organisms: None Reported Past Surgical History: Section, Ear Surgery, Tonsillectomy Additional Past Surgical History / Comment(s): ear surgery x 11 on missy. ears for tubes & polyps, kidney stones. wisdom teeth Past Anesthesia/Blood Transfusion Reactions: No Reported Reaction Past Psychological History: No Psychological Hx Reported Smoking Status: Never smoker Past Alcohol Use History: None Reported Past Drug Use History: None Reported - Past Family History Father Family Medical History: Hypertension General Exam Limitations: no limitations General appearance: alert, in no apparent distress Head exam: Present: atraumatic, normocephalic, normal inspection Eye exam: Present: normal appearance, PERRL, EOMI Pupils: Present: normal accommodation ENT exam: Present: normal exam, normal oropharynx, mucous membranes moist Neck exam: Present: normal inspection, full ROM. Absent: tenderness Respiratory exam: Present: normal lung sounds bilaterally. Absent: respiratory distress, wheezes, rales Cardiovascular Exam: Present: regular rate, normal rhythm, normal heart sounds GI/Abdominal exam: Present: soft, tenderness (Right flank pain.). Absent: distended, guarding, rebound, rigid Extremities exam: Present: normal inspection, full ROM, normal capillary refill. Absent: tenderness Back exam: Present: normal inspection, full ROM, tenderness, CVA tenderness (R) Neurological exam: Present: alert, oriented X3 Psychiatric exam: Present: normal affect, normal mood Skin exam: Present: warm, dry, intact, normal color Course Vital Signs 06/24/20 13:59 Temperature 98.2 F Pulse Rate 80 Respiratory 16 Rate Blood Pressure 129/85 O2 Sat by Pulse 97 Oximetry Medical Decision Making - Medical Decision Making Patient is 25-year-old female with history of recurrent renal stones presenting to the emergency department with a chief complaint of renal stones. On exam, she has some right flank and right CVA tenderness. CBC and CMP are unremarkable. UA does show elevated red blood cells and moderate amounts of blood in the urine. Although, she is currently on her menstrual period as well. KUB from 3 days ago showed no signs of renal stone. CT without contrast was obtained today showing bilateral, nonobstructing renal stones. No hydronephrosis. No exact reason seen for the right flank pain. Patient was given analgesia, antiemetics and fluids. On reevaluation she does report improvement in symptoms. Advised the patient to follow up with her urologist. Strict return parameters were thoroughly discussed the patient was understanding and agreeable. Case discussed with physician. - Lab Data Result diagrams: 06/24/20 14:47 06/24/20 14:47 Lab Results 06/24/20 06/24/20 06/24/20 Range/Units 14:21 14:21 14:47 WBC 8.1 (3.8-10.6) k/uL RBC 5.34 (3.80-5.40) m/uL Hgb 14.1 (11.4-16.0) gm/dL Hct 44.2 (34.0-46.0) % MCV 82.7 (80.0-100.0) fL MCH 26.4 (25.0-35.0) pg MCHC 31.9 (31.0-37.0) g/dL RDW 14.1 (11.5-15.5) % Plt Count 228 (150-450) k/uL Neutrophils % 66 % Lymphocytes % 24 % Monocytes % 4 % Eosinophils % 3 % Basophils % 1 % Neutrophils # 5.4 (1.3-7.7) k/uL Lymphocytes # 1.9 (1.0-4.8) k/uL Monocytes # 0.4 (0-1.0) k/uL Eosinophils # 0.2 (0-0.7) k/uL Basophils # 0.1 (0-0.2) k/uL Sodium (137-145) mmol/L Potassium (3.5-5.1) mmol/L Chloride (98-107) mmol/L Carbon Dioxide (22-30) mmol/L Anion Gap mmol/L BUN (7-17) mg/dL Creatinine (0.52-1.04) mg/dL Est GFR (CKD-EPI)AfAm (>60 ml/min/1.73 sqM) Est GFR (CKD-EPI)NonAf (>60 ml/min/1.73 sqM) Glucose (74-99) mg/dL Calcium (8.4-10.2) mg/dL Total Bilirubin (0.2-1.3) mg/dL AST (14-36) U/L ALT (4-34) U/L Alkaline Phosphatase (38-126) U/L Total Protein (6.3-8.2) g/dL Albumin (3.5-5.0) g/dL Urine Color Light Yellow Urine Appearance Clear (Clear) Urine pH 6.0 (5.0-8.0) Ur Specific [place] 1.005 (1.001-1.035) Urine Protein Negative (Negative) Urine Glucose (UA) Negative (Negative) Urine Ketones Negative (Negative) Urine Blood Large H (Negative) Urine Nitrite Negative (Negative) Urine Bilirubin Negative (Negative) Urine Urobilinogen <2.0 (<2.0) mg/dL Ur Leukocyte Esterase Negative (Negative) Urine RBC >182 H (0-5) /hpf Urine WBC 10 H (0-5) /hpf Ur Squamous Epith Cells 1 (0-4) /hpf Amorphous Sediment Rare H (None) /hpf Urine Bacteria Rare H (None) /hpf Hyaline Casts 1 (0-2) /lpf Urine HCG, Qual Not Detected (Not Detectd) 06/24/20 Range/Units 14:47 WBC (3.8-10.6) k/uL RBC (3.80-5.40) m/uL Hgb (11.4-16.0) gm/dL Hct (34.0-46.0) % MCV (80.0-100.0) fL MCH (25.0-35.0) pg MCHC (31.0-37.0) g/dL RDW (11.5-15.5) % Plt Count (150-450) k/uL Neutrophils % % Lymphocytes % % Monocytes % % Eosinophils % % Basophils % % Neutrophils # (1.3-7.7) k/uL Lymphocytes # (1.0-4.8) k/uL Monocytes # (0-1.0) k/uL Eosinophils # (0-0.7) k/uL Basophils # (0-0.2) k/uL Sodium 138 (137-145) mmol/L Potassium 4.3 (3.5-5.1) mmol/L Chloride 107 (98-107) mmol/L Carbon Dioxide 24 (22-30) mmol/L Anion Gap 7 mmol/L BUN 7 (7-17) mg/dL Creatinine 0.65 (0.52-1.04) mg/dL Est GFR (CKD-EPI)AfAm >90 (>60 ml/min/1.73 sqM) Est GFR (CKD-EPI)NonAf >90 (>60 ml/min/1.73 sqM) Glucose 91 (74-99) mg/dL Calcium 9.1 (8.4-10.2) mg/dL Total Bilirubin 0.3 (0.2-1.3) mg/dL AST 21 (14-36) U/L ALT 17 (4-34) U/L Alkaline Phosphatase 78 (38-126) U/L Total Protein 7.1 (6.3-8.2) g/dL Albumin 4.4 (3.5-5.0) g/dL Urine Color Urine Appearance (Clear) Urine pH (5.0-8.0) Ur Specific [place] (1.001-1.035) Urine Protein (Negative) Urine Glucose (UA) (Negative) Urine Ketones (Negative) Urine Blood (Negative) Urine Nitrite (Negative) Urine Bilirubin (Negative) Urine Urobilinogen (<2.0) mg/dL Ur Leukocyte Esterase (Negative) Urine RBC (0-5) /hpf Urine WBC (0-5) /hpf Ur Squamous Epith Cells (0-4) /hpf Amorphous Sediment (None) /hpf Urine Bacteria (None) /hpf Hyaline Casts (0-2) /lpf Urine HCG, Qual (Not Detectd) Disposition Clinical Impression: Right flank pain, Hematuria Disposition: HOME SELF-CARE Condition: Stable Instructions (If sedation given, give patient instructions): Abdominal Pain (ED) Additional Instructions: Follow-up with urology. Return to emergency department if symptoms worsen. Is patient prescribed a controlled substance at d/c from ED?: No Referrals: Seamus Rainey DO [Primary Care Provider] - 1-2 days Time of Disposition: 15:23
[2020-06-24] MEDS ORDERED: ONDANSETRON 4 MG/2 ML VIAL IVP STA (14:16)
[2020-06-24] MEDS ORDERED: KETOROLAC 15 MG/ML 1 ML VIAL IVP STA (14:16)
[2020-06-24] MEDS ORDERED: SODIUM CHLORIDE 0.9% 1,000 ML IV STA (14:16)
[2020-06-24 14:44] LABS: Amorphous Sediment,Urine Rare /hpf; Appearance,Urine Clear (Clear); Bacteria,Urine Rare /hpf; Bilirubin,Urine Negative (Negative); Blood,Urine Large (Negative); Color,Urine Light Yellow; Glucose,Urine (UA) Negative (Negative); Hyaline Casts,Urine 1 /lpf (0-2); Ketones,Urine Negative (Negative); Leukocyte Esterase,Urine Negative (Negative); Nitrite,Urine Negative (Negative); Protein,Urine Negative (Negative); RBC,Urine >182 /hpf (0-5); Specific Gravity,Urine 1.005 (1.001-1.035); Squamous Epithelial Cell,Urine 1 /hpf (0-4); Urobilinogen,Urine <2.0 mg/dL (<2.0); WBC,Urine 10 /hpf (0-5)
[2020-06-24 15:04] LABS: Basophils # (A) 0.1 k/uL (0-0.2); Basophils % (A) 1 %; Eosinophils # (A) 0.2 k/uL (0-0.7); Eosinophils % (A) 3 %; HCT 44.2 % (34.0-46.0); HGB 14.1 gm/dL (11.4-16.0); Lymphocytes # (A) 1.9 k/uL (1.0-4.8); Lymphocytes % (A) 24 %; MCH 26.4 pg (25.0-35.0); MCHC 31.9 g/dL (31.0-37.0); MCV 82.7 fL (80.0-100.0); Mean Platelet Volume 9.4; Monocytes # (A) 0.4 k/uL (0-1.0); Monocytes % (A) 4 %; Neutrophils # (A) 5.4 k/uL (1.3-7.7); Neutrophils % (A) 66 %; Platelet Count 228 k/uL (150-450); RBC 5.34 m/uL (3.80-5.40); RDW 14.1 % (11.5-15.5); WBC 8.1 k/uL (3.8-10.6)
[2020-06-24 15:14] LABS: ALT 17 U/L (4-34); AST 21 U/L (14-36); African American GFR (CKD) >90 (>60 ml/min/1.73 sqM); Albumin 4.4 g/dL (3.5-5.0); Alkaline Phosphatase 78 U/L (38-126); Anion Gap 7 mmol/L; Blood Urea Nitrogen 7 mg/dL (7-17); Calcium 9.1 mg/dL (8.4-10.2); Carbon Dioxide 24 mmol/L (22-30); Chloride 107 mmol/L (98-107); Glucose 91 mg/dL (74-99); Non-African American GFR(CKD) >90 (>60 ml/min/1.73 sqM); Potassium 4.3 mmol/L (3.5-5.1); Sodium 138 mmol/L (137-145); Total Bilirubin 0.3 mg/dL (0.2-1.3); Total Protein 7.1 g/dL (6.3-8.2)
--- NOTE | 2020-06-24 15:17 | CT ---
EXAMINATION TYPE: CT abdomen pelvis wo con DATE OF EXAM: 06/24/2020 HISTORY: Right flank pain CT DLP: 613.7 mGycm. Automated Exposure Control for Dose Reduction was Utilized. TECHNIQUE: CT scan of the abdomen and pelvis is performed without oral or IV contrast. COMPARISON: NONE FINDINGS: Within the limitations of a non-contrast study, the following observations are made. LUNG BASES: No significant abnormality is appreciated. LIVER/GB: No significant abnormality is appreciated. PANCREAS: No significant abnormality is seen. SPLEEN: No significant abnormality is seen. ADRENALS: No significant abnormality is seen. KIDNEYS: There are 3 scattered left-sided renal calculi measuring around 3 mm in size each. There are 2 right renal calculi measuring 4 to 5 mm in size. No hydronephrosis or obstructing ureteral calculi are present bilaterally. BOWEL: Normal-appearing appendix ascending from the posterior aspect of the cecum. No suspicious smal l or large bowel dilatation. GENITAL ORGANS: Anteverted uterus projects to right of midline. Ovaries are symmetric and measure wit hin normal limits in size axial image 111. LYMPH NODES: No greater than 1cm abdominal or pelvic lymph nodes are appreciated. OSSEOUS STRUCTURES: No significant abnormality is seen. OTHER: Tiny fat-containing umbilical hernia. IMPRESSION: Small bilateral nonobstructing renal calculi. No hydronephrosis or obstructing ureter cornelius culi bilaterally. No acute findings seen to account for patient's symptoms of right-sided flank pain.
[2020-06-24] MEDS ORDERED: ACET/COD 300 MG/30 MG STARTER PACK 6 TAB BTL PO STA (15:36)
[2020-06-24 15:41] VITALS: BP 124/69; PULSE 83; TEMP 97.6
== END 2020-06-24 15:41 | disposition home or self-care (01) ==
LOC: EC 13:52
DX: R31.9 Hematuria, unspecified (principal); N20.0 Calculus of kidney; R71.8 Other abnormality of red blood cells; Z79.899 Other long term (current) drug therapy; Z88.1 Allergy status to other antibiotic agents; Z87.442 Personal history of urinary calculi
CPT/HCPCS: 36415; 80053; 85025; 81001; 81025; 74176; 99284; 96374; 96375; 96361; J2405; J1885

== ENCOUNTER 2020-06-27 17:28 | Emergency (ER) | payer BC, OTHER ==
[2020-06-27 17:32] VITALS: TEMP 98.6
[2020-06-27] MEDS ORDERED: ONDANSETRON 4 MG/2 ML VIAL IVP STA (17:33)
[2020-06-27] MEDS ORDERED: SODIUM CHLORIDE 0.9% 1,000 ML IV STA (17:33)
[2020-06-27] MEDS ORDERED: KETOROLAC 15 MG/ML 1 ML VIAL IVP STA (17:33)
--- NOTE | 2020-06-27 17:53 | ED ---
Abdominal Pain HPI - General Chief Complaint: Abdominal Pain Stated Complaint: poss bowel obstruction Time Seen by Provider: 06/27/20 17:33 Source: patient Mode of arrival: ambulatory Limitations: no limitations - History of Present Illness Initial Comments: Patient is 25-year-old female presenting to emergency Department with a chief complaint of flank pain. Patient reports the symptoms have been ongoing for slightly over a week. Patient reports the pain is sharp and comes and goes. States she's been evaluated twice before in the ED for a possible kidney stone with no findings. Patient states she's had an x-ray and a CT with no findings. Patient states she is scheduled for a urogram on July 04. She does see a urologist who ordered a urogram. Patient reports since her most recent visit to the ED, her symptoms have not resolved. Denies any urinary or vaginal symptoms. States she is also feeling constipated and is only having very small bowel movements. - Related Data Home Medications Medication Instructions Recorded Confirmed Magnesium Citrate [Citrate of 296 ml PO ONCE PRN 06/27/20 06/27/20 Magnesia] Sennosides [Ex-Lax] 15 mg PO ONCE PRN 06/27/20 06/27/20 polyethylene glycoL 3350 [Miralax] 17 gm PO DAILY PRN 06/27/20 06/27/20 Allergies Allergy/AdvReac Type Severity Reaction Status Date / Time azithromycin [From Zithromax] Allergy Rash/Hives Verified 06/27/20 19:42 Review of Systems ROS Statement: Those systems with pertinent positive or pertinent negative responses have been documented in the HPI. ROS Other: All systems not noted in ROS Statement are negative. Past Medical History Past Medical History: Skin Disorder Additional Past Medical History / Comment(s): eczema on arms & legs- uses otc lotion. rt breast mass upper outer quadrant-mild discomfort History of Any Multi-Drug Resistant Organisms: None Reported Past Surgical History: Section, Ear Surgery, Tonsillectomy Additional Past Surgical History / Comment(s): ear surgery x 11 on missy. ears for tubes & polyps, kidney stones. wisdom teeth Past Anesthesia/Blood Transfusion Reactions: No Reported Reaction Past Psychological History: No Psychological Hx Reported Smoking Status: Never smoker Past Alcohol Use History: None Reported Past Drug Use History: None Reported - Past Family History Father Family Medical History: Hypertension General Exam Limitations: no limitations General appearance: alert, in no apparent distress Head exam: Present: atraumatic, normocephalic, normal inspection Eye exam: Present: normal appearance, PERRL, EOMI Pupils: Present: normal accommodation ENT exam: Present: normal exam, normal oropharynx, mucous membranes moist, TM's normal bilaterally, normal external ear exam Neck exam: Present: normal inspection, full ROM. Absent: tenderness Respiratory exam: Present: normal lung sounds bilaterally. Absent: respiratory distress, wheezes, rales Cardiovascular Exam: Present: regular rate, normal rhythm, normal heart sounds. Absent: systolic murmur, diastolic murmur, rubs, gallop, clicks GI/Abdominal exam: Present: soft, tenderness (Mild right flank pain.). Absent: distended, guarding, rebound, rigid Extremities exam: Present: normal inspection, full ROM, normal capillary refill. Absent: tenderness Back exam: Present: normal inspection, full ROM, CVA tenderness (R) Neurological exam: Present: alert, oriented X3 Psychiatric exam: Present: normal affect, normal mood Skin exam: Present: warm, dry, intact, normal color Course Vital Signs 06/27/20 17:30 Temperature 98.6 F Pulse Rate 96 Respiratory 20 Rate Blood Pressure 134/96 O2 Sat by Pulse 98 Oximetry - Reevaluation(s) Reevaluation #1: 06/27/20 20:06 Medical records reviewed Medical Decision Making - Medical Decision Making Patient is 25-year-old female presenting to the emergency department with a chief complaint of right flank pain. On Exam, patient has right flank and right CVA tenderness. Patient had a recent x-ray and a recent CT showing no signs of renal stone. Patient was given IV fluids and Toradol in the ED. On reevaluation patient reports some improvement symptoms. Patient also requested an enema because she felt constipated. After getting enema, patient did have some diarrhea but no solid bowel movements. Patient is ready set to see the urologist and has an appointment for the urogram. KUB is unremarkable. CBC CMP and UA are unremarkable. Patient is not . Strict return parameters were thoroughly discussed the patient is a 9-year-old case discussed with physician. - Lab Data Result diagrams: 06/27/20 18:14 06/27/20 18:14 Lab Results 06/27/20 06/27/20 06/27/20 Range/Units 17:52 18:14 18:14 WBC 6.7 (3.8-10.6) k/uL RBC 5.50 H (3.80-5.40) m/uL Hgb 14.6 (11.4-16.0) gm/dL Hct 45.1 (34.0-46.0) % MCV 81.9 (80.0-100.0) fL MCH 26.5 (25.0-35.0) pg MCHC 32.4 (31.0-37.0) g/dL RDW 13.9 (11.5-15.5) % Plt Count 242 (150-450) k/uL Neutrophils % 62 % Lymphocytes % 27 % Monocytes % 5 % Eosinophils % 2 % Basophils % 2 % Neutrophils # 4.2 (1.3-7.7) k/uL Lymphocytes # 1.8 (1.0-4.8) k/uL Monocytes # 0.4 (0-1.0) k/uL Eosinophils # 0.1 (0-0.7) k/uL Basophils # 0.1 (0-0.2) k/uL Sodium (137-145) mmol/L Potassium (3.5-5.1) mmol/L Chloride (98-107) mmol/L Carbon Dioxide (22-30) mmol/L Anion Gap mmol/L BUN (7-17) mg/dL Creatinine (0.52-1.04) mg/dL Est GFR (CKD-EPI)AfAm (>60 ml/min/1.73 sqM) Est GFR (CKD-EPI)NonAf (>60 ml/min/1.73 sqM) Glucose (74-99) mg/dL Calcium (8.4-10.2) mg/dL Total Bilirubin (0.2-1.3) mg/dL AST (14-36) U/L ALT (4-34) U/L Alkaline Phosphatase (38-126) U/L Total Protein (6.3-8.2) g/dL Albumin (3.5-5.0) g/dL Lipase (23-300) U/L Urine Color Light Yellow Urine Appearance Clear (Clear) Urine pH 7.5 (5.0-8.0) Ur Specific [place] 1.012 (1.001-1.035) Urine Protein Negative (Negative) Urine Glucose (UA) Negative (Negative) Urine Ketones Negative (Negative) Urine Blood Negative (Negative) Urine Nitrite Negative (Negative) Urine Bilirubin Negative (Negative) Urine Urobilinogen <2.0 (<2.0) mg/dL Ur Leukocyte Esterase Negative (Negative) Urine HCG, Qual Not Detected (Not Detectd) 06/27/20 Range/Units 18:14 WBC (3.8-10.6) k/uL RBC (3.80-5.40) m/uL Hgb (11.4-16.0) gm/dL Hct (34.0-46.0) % MCV (80.0-100.0) fL MCH (25.0-35.0) pg MCHC (31.0-37.0) g/dL RDW (11.5-15.5) % Plt Count (150-450) k/uL Neutrophils % % Lymphocytes % % Monocytes % % Eosinophils % % Basophils % % Neutrophils # (1.3-7.7) k/uL Lymphocytes # (1.0-4.8) k/uL Monocytes # (0-1.0) k/uL Eosinophils # (0-0.7) k/uL Basophils # (0-0.2) k/uL Sodium 138 (137-145) mmol/L Potassium 4.4 (3.5-5.1) mmol/L Chloride 104 (98-107) mmol/L Carbon Dioxide 26 (22-30) mmol/L Anion Gap 8 mmol/L BUN 11 (7-17) mg/dL Creatinine 0.69 (0.52-1.04) mg/dL Est GFR (CKD-EPI)AfAm >90 (>60 ml/min/1.73 sqM) Est GFR (CKD-EPI)NonAf >90 (>60 ml/min/1.73 sqM) Glucose 109 H (74-99) mg/dL Calcium 9.6 (8.4-10.2) mg/dL Total Bilirubin 0.3 (0.2-1.3) mg/dL AST 34 (14-36) U/L ALT 28 (4-34) U/L Alkaline Phosphatase 87 (38-126) U/L Total Protein 7.8 (6.3-8.2) g/dL Albumin 4.8 (3.5-5.0) g/dL Lipase 135 (23-300) U/L Urine Color Urine Appearance (Clear) Urine pH (5.0-8.0) Ur Specific [place] (1.001-1.035) Urine Protein (Negative) Urine Glucose (UA) (Negative) Urine Ketones (Negative) Urine Blood (Negative) Urine Nitrite (Negative) Urine Bilirubin (Negative) Urine Urobilinogen (<2.0) mg/dL Ur Leukocyte Esterase (Negative) Urine HCG, Qual (Not Detectd) Disposition Clinical Impression: Right flank pain Disposition: HOME SELF-CARE Condition: Stable Instructions (If sedation given, give patient instructions): Abdominal Pain (ED) Additional Instructions: Follow-up with a urologist. Return to emergency department if symptoms worsen. Is patient prescribed a controlled substance at d/c from ED?: No Referrals: Seamus Rainey DO [Primary Care Provider] - 1-2 days Time of Disposition: 19:54
[2020-06-27 18:23] LABS: Appearance,Urine Clear (Clear); Basophils # (A) 0.1 k/uL (0-0.2); Basophils % (A) 2 %; Bilirubin,Urine Negative (Negative); Blood,Urine Negative (Negative); Color,Urine Light Yellow; Eosinophils # (A) 0.1 k/uL (0-0.7); Eosinophils % (A) 2 %; Glucose,Urine (UA) Negative (Negative); HCT 45.1 % (34.0-46.0); HGB 14.6 gm/dL (11.4-16.0); Ketones,Urine Negative (Negative); Leukocyte Esterase,Urine Negative (Negative); Lymphocytes # (A) 1.8 k/uL (1.0-4.8); Lymphocytes % (A) 27 %; MCH 26.5 pg (25.0-35.0); MCHC 32.4 g/dL (31.0-37.0); MCV 81.9 fL (80.0-100.0); Mean Platelet Volume 9.6; Monocytes # (A) 0.4 k/uL (0-1.0); Monocytes % (A) 5 %; Neutrophils # (A) 4.2 k/uL (1.3-7.7); Neutrophils % (A) 62 %; Nitrite,Urine Negative (Negative); PH, Urine 7.5 (5.0-8.0); Platelet Count 242 k/uL (150-450); Protein,Urine Negative (Negative); RDW 13.9 % (11.5-15.5); Specific Gravity,Urine 1.012 (1.001-1.035); Urobilinogen,Urine <2.0 mg/dL (<2.0); WBC 6.7 k/uL (3.8-10.6)
--- NOTE | 2020-06-27 18:34 | XR ---
EXAMINATION TYPE: XR KUB DATE OF EXAM: 06/27/2020 COMPARISON: 06/21/2020 HISTORY: 2 views TECHNIQUE: Flank pain FINDINGS: There is no sign of intestinal obstruction or pneumoperitoneum. Fecal pattern is normal. Jenni ng bases are clear. There are no pathologic calcifications. IMPRESSION: Nonacute abdomen. No change.
[2020-06-27 18:35] LABS: ALT 28 U/L (4-34); AST 34 U/L (14-36); African American GFR (CKD) >90 (>60 ml/min/1.73 sqM); Albumin 4.8 g/dL (3.5-5.0); Alkaline Phosphatase 87 U/L (38-126); Anion Gap 8 mmol/L; Blood Urea Nitrogen 11 mg/dL (7-17); Calcium 9.6 mg/dL (8.4-10.2); Carbon Dioxide 26 mmol/L (22-30); Chloride 104 mmol/L (98-107); Glucose 109 mg/dL (74-99); Lipase 135 U/L (23-300); Non-African American GFR(CKD) >90 (>60 ml/min/1.73 sqM); Potassium 4.4 mmol/L (3.5-5.1); Sodium 138 mmol/L (137-145); Total Bilirubin 0.3 mg/dL (0.2-1.3); Total Protein 7.8 g/dL (6.3-8.2)
[2020-06-27 20:35] VITALS: BP 137/111; PULSE 80; RESP 16
== END 2020-06-27 20:30 | disposition home or self-care (01) ==
LOC: EC 17:28
DX: R10.9 Unspecified abdominal pain (principal); R19.7 Diarrhea, unspecified; Z88.1 Allergy status to other antibiotic agents; Z98.890 Other specified postprocedural states
CPT/HCPCS: 36415; 80053; 83690; 85025; 81003; 81025; 74018; 99284; 96374; 96375; 96361; J2405; J1885

== ENCOUNTER → 2021-08-06 | Outpatient (CLI) | payer BC ==
--- NOTE | 2021-08-06 17:57 | NM ---
EXAMINATION TYPE: NM hepatobiliary w EF DATE OF EXAM: 08/06/2021 COMPARISON: NONE INDICATION: Upper abdominal pain TECHNIQUE: After the intravenous administration of 4.1 mCi Tc 99m Mebrofenin hepatobiliary scintigrap hy is performed. Images were obtained immediately post injection. FINDINGS: There is prompt uptake and excretion of radiotracer by the liver. Extrahepatic ducts are identified at 4 minutes. The gallbladder is visualized within 4 minutes. Small bowel activity is noted within 20 to minutes. At one hour 8 ounces of oral ensure plus is given to mimic CCK and gallbladder ejection fraction is c alculated at 44 %, which is in the normal range. (Normal >35% and <80%.). IMPRESSION: 1. Normal hepatobiliary scan
== END | disposition home or self-care (01) ==
LOC: RADNMMAIN 12:55
PROVIDERS: ATTEND Family Medicine
DX: D18.00 Hemangioma unspecified site (principal)
CPT/HCPCS: 78226; A9537

== ENCOUNTER → 2021-12-28 | Outpatient (CLI) | payer BC ==
--- NOTE | 2021-12-28 08:58 | US ---
EXAMINATION TYPE: US kidneys/renal and bladder DATE OF EXAM: 12/28/2021 COMPARISON: Prior ultrasound 01/03/2020, CT 06/24/2020 CLINICAL HISTORY: R10.9 Flank Pain. Hx of stones. EXAM MEASUREMENTS: Right Kidney: 10.4 x 4.5 x 4.9 cm Left Kidney: 11.0 x 5.2 x 4.4 cm Right Kidney: No masses seen, mild pelvic caliectasis is present, echogenic pericalyceal appearance n oted bilaterally. Punctate echogenic foci are present Left Kidney: Cystic area lower pole 1.4 x 1.2 x 1.4 cm., Echogenic focus in the midpole shows a simil ar appearance to prior ultrasound, is mild caliectasis at this level Bladder: wnl Bilateral Jets seen: Yes Suspect changes of medullary sponge kidney bilaterally. The urinary bladder is anechoic. Bilateral ureteral jets are seen. IMPRESSION: Nonobstructive nephrolithiasis changes, correlate for medullary sponge kidney bilaterally
== END | disposition home or self-care (01) ==
LOC: RADUSWWP 08:17
PROVIDERS: ATTEND Obstetrics & Gynecology
DX: R10.9 Unspecified abdominal pain (principal)
CPT/HCPCS: 76770

== ENCOUNTER 2022-01-13 11:05 | Observation (INO) | payer BC ==
[2022-01-13 12:22] LABS: Appearance,Urine Clear (Clear); Bilirubin,Urine Negative (Negative); Blood,Urine Negative (Negative); Color,Urine Colorless; Glucose,Urine (UA) Negative (Negative); Ketones,Urine Negative (Negative); Leukocyte Esterase,Urine Negative (Negative); Nitrite,Urine Negative (Negative); Protein,Urine Negative (Negative); Specific Gravity,Urine 1.004 (1.001-1.035); Urobilinogen,Urine <2.0 mg/dL (<2.0)
[2022-01-13] MEDS: BUTORPHANOL 1 MG/ML 1 ML VIAL IV PRN ×3 (13:22→20:59)
[2022-01-13] MEDS: LACTATED RINGERS 1,000 ML IV SCH ×3 (13:24→16:32)
[2022-01-13 13:47] VITALS: RESP 16
[2022-01-13 14:20] LABS: Basophils # (A) 0.1 k/uL (0-0.2); Basophils % (A) 1 %; Eosinophils # (A) 0.2 k/uL (0-0.7); Eosinophils % (A) 1 %; HCT 37.4 % (34.0-46.0); HGB 12.5 gm/dL (11.4-16.0); Lymphocytes # (A) 2.4 k/uL (1.0-4.8); Lymphocytes % (A) 19 %; MCH 30.9 pg (25.0-35.0); MCHC 33.4 g/dL (31.0-37.0); MCV 92.6 fL (80.0-100.0); Mean Platelet Volume 9.7; Monocytes # (A) 0.5 k/uL (0-1.0); Monocytes % (A) 4 %; Neutrophils # (A) 9.2 k/uL (1.3-7.7); Neutrophils % (A) 74 %; Platelet Count 210 k/uL (150-450); RBC 4.04 m/uL (3.80-5.40); RDW 13.9 % (11.5-15.5); WBC 12.5 k/uL (3.8-10.6)
[2022-01-13 14:31] LABS: ALT 7 U/L (4-34); AST 16 U/L (14-36); African American GFR (CKD) >90 (>60 ml/min/1.73 sqM); Albumin 3.2 g/dL (3.5-5.0); Alkaline Phosphatase 66 U/L (38-126); Anion Gap 5 mmol/L; Blood Urea Nitrogen 6 mg/dL (7-17); Calcium 8.5 mg/dL (8.4-10.2); Carbon Dioxide 20 mmol/L (22-30); Chloride 110 mmol/L (98-107); Glucose 78 mg/dL (74-99); Non-African American GFR(CKD) >90 (>60 ml/min/1.73 sqM); Potassium 3.9 mmol/L (3.5-5.1); Sodium 135 mmol/L (137-145); Total Bilirubin 0.4 mg/dL (0.2-1.3); Total Protein 6.2 g/dL (6.3-8.2)
--- NOTE | 2022-01-13 16:15 | US ---
EXAMINATION TYPE: US kidneys/renal and bladder DATE OF EXAM: 01/13/2022 COMPARISON: NONE CLINICAL HISTORY: rule out kidney stone. Pain Hx of stone EXAM MEASUREMENTS: Right Kidney: 10.6 x 4.6 x 5.3 cm Left Kidney: 11.8 x 5.7 x 4.7 cm Right Kidney: No hydronephrosis or masses seen Left Kidney: Cystic area seen 1.1 x 1.0 x 1.0 cm. Bladder: Anechoic Bilateral Jets seen: No left only IMPRESSION: 1. Left renal cyst.
[2022-01-13] MEDS ORDERED: ACETAMINOPHEN TAB 325 MG TAB PO PRN (18:05)
--- NOTE | 2022-01-13 18:05 | P.HPOB ---
History of Present Illness H&P Date: 01/13/22 Chief Complaint: Left flank pain and groin pain This patient is a pleasant 26-year-old 4 para 2 female estimated date of confinement 04/22/2022 estimated gestational age 26 weeks who presents to labor and delivery with complaints of left flank and left groin pain. Patient has a known history of kidney stones and did have an ultrasound done this on the seventh. That did show a left sided kidney stone without hydronephrosis. Patient states that her typical pain has come on severe this afternoon and presents to labor and delivery for evaluation. Patient's is also complicated by first trimester exposure to a HIDA scan. She has had a normal level III ultrasound and cardiac echo. is otherwise uncomplicated. Review of Systems Constitutional: Reports as per HPI Genitourinary: Reports Menstruation: Reports amenorrhea Past Medical History Past Medical History: Asthma, Skin Disorder Additional Past Medical History / Comment(s): eczema on arms & legs- uses otc lotion. rt breast mass upper outer quadrant-mild discomfort History of Any Multi-Drug Resistant Organisms: None Reported Past Surgical History: Section, Ear Surgery, Tonsillectomy Additional Past Surgical History / Comment(s): ear surgery x 11 on missy. ears for tubes & polyps, kidney stones. wisdom teeth Past Anesthesia/Blood Transfusion Reactions: No Reported Reaction Past Psychological History: No Psychological Hx Reported Smoking Status: Never smoker Past Alcohol Use History: None Reported Past Drug Use History: None Reported - Past Family History Father Family Medical History: Hypertension Medications and Allergies Home Medications Medication Instructions Recorded Confirmed Type Pnv No.95/Ferrous Fum/Folic AC 1 each PO DAILY 01/13/22 01/13/22 History [ Multivitamin Tablet] Thyroid,Pork [Chief Radiologic Technologist Thyroid] 15 mg PO DAILY 01/13/22 01/13/22 History Allergies Allergy/AdvReac Type Severity Reaction Status Date / Time azithromycin [From Zithromax] Allergy Rash/Hives Verified 01/13/22 11:15 Exam Vital Signs Temp Pulse Resp BP Pulse Ox 01/13/22 16:18 97.7 F 94 16 107/70 01/13/22 12:34 110 H 16 136/87 99 01/13/22 11:11 97.5 F L 114 H 16 135/91 96 Intake and Output 01/13/22 01/13/22 01/13/22 06:59 14:59 22:59 Other: Weight 83.007 kg - OBG Physical Exam Abdomen: bowel sounds normal, no diffuse tenderness, no bruit present, no guarding noted, no hepatomegaly, no splenomegaly, no mass Results CBC and metabolic panel are normal. She has a renal ultrasound which shows no significant hydronephrosis. Result Diagrams: 01/13/22 14:08 01/13/22 14:08 Abnormal Lab Results - Last 24 Hours (Table) 01/13/22 01/13/22 Range/Units 14:08 14:08 WBC 12.5 H (3.8-10.6) k/uL Neutrophils # 9.2 H (1.3-7.7) k/uL Sodium 135 L (137-145) mmol/L Chloride 110 H (98-107) mmol/L Carbon Dioxide 20 L (22-30) mmol/L BUN 6 L (7-17) mg/dL Creatinine 0.49 L (0.52-1.04) mg/dL Total Protein 6.2 L (6.3-8.2) g/dL Albumin 3.2 L (3.5-5.0) g/dL Assessment and Plan Assessment: This is a pleasant 26-year-old 4 para 2 female that is 26 weeks gestation with left flank and left groin pain typical of her kidney stones. Nation has seen a urologist in the past and most recently been to [facility]. Patient did have an ultrasound here on December 28 which showed a left kidney stone with no hydronephrosis. Although this is not visualized on today's exam I suspicion is a kidney stone is migrated, most likely secondary to . Plan at this time was admission for IV fluids, pain control and we will strain her urine. (1) 26 weeks gestation of Current Visit: Yes Status: Acute Code(s): Z3A.26 - 26 WEEKS GESTATION OF SNOMED Code(s): 46892255 (2) Renal calculus, left Current Visit: Yes Status: Acute Code(s): N20.0 - CALCULUS OF KIDNEY SNOMED Code(s): 08835464 (3) Acute back pain Current Visit: No Status: Acute Code(s): M54.9 - DORSALGIA, UNSPECIFIED SNOMED Code(s): 049053953
--- NOTE | 2022-01-13 18:06 | P.MSEPDOC ---
Presenting Problems - Arrival Data Date of Arrival on Unit: 01/13/22 Time of Arrival on Unit: 11:05 Mode of Transport: Portable - Complaint OB-Reason for Admission/Chief Complaint: Pain Comment: possible kidney stone Medical History - Information : 4 Para: 2 Term: 2 : 0 Abortions: Spontaneous or Elective: 1 Number of Living Children: 2 - Gestational Age Gestational Age by CHATO (wks/days): 25 Weeks and 6 Days Review of Systems - Review of Systems Constitutional: No problems Breast: No problems ENT: No problems Cardiovascular: No problems Respiratory: No problems Gastrointestinal: No problems Genitourinary: No problems Musculoskeletal: No problems Neurological: No problems Skin: No problems Vital Signs - Temperature Temperature: 97.7 F Temperature Source: Oral - Pulse Right Brachial Pulse Rate: 94 Pulse Assessment Method: Automatic Cuff - Respirations Respiratory Rate: 16 Oxygen Delivery Method: Room Air - Blood Pressure Right Arm Sitting Blood Pressure: 107/70 Blood Pressure Mean: 82 Blood Pressure Source: Automatic Cuff Medical Screen Scoring - Assessment - Baby A Baseline FHR: 125 Heart Rate - NICHD Category: Category I (Normal) Physician Notification - Physician Notified Physician Notified Date: 01/13/22 Physician Notified Time: 12:31 Physician: Vahe Fagan New Order Received: Yes (admit obv fluids and pain control) Maternal Triage Index - Non-Urgent/Priority 4 Non-Urgent Priority 4: Yes Criteria Met for Priority 4: s/s kidney stones Disposition - Disposition OB Disposition: Triage, LDRP Suite I agree with the RN Medical Screening Exam: Yes Case reviewed; plan agreed upon as documented in EMR&OBIX.: Yes Diagnosis: CALCULUS OF KIDNEY
[2022-01-14] MEDS: LACTATED RINGERS 1,000 ML IV SCH (00:48)
[2022-01-14] MEDS: BUTORPHANOL 1 MG/ML 1 ML VIAL IV PRN ×2 (00:48→04:33)
--- NOTE | 2022-01-14 06:39 | P.PN ---
Progress Note - Text Progress Note Date: 01/14/22 Patient is resting without significant pain this morning. She feels that the kidney stone is moved further down and her pain is much better wishes to go home. Vital signs are stable and she is afebrile. Plan today is to continue IV hydration this morning discharge home after breakfast.
--- NOTE | 2022-01-14 06:43 | P.DS ---
Providers Date of admission: 01/13/22 12:32 Expected date of discharge: 01/14/22 Attending physician: Vahe Fagan Primary care physician: Stated None - Discharge Diagnosis(es) (1) 26 weeks gestation of Current Visit: Yes Status: Acute (2) Renal calculus, left Current Visit: Yes Status: Acute (3) Acute back pain Current Visit: No Status: Acute Hospital Course: Please see dictated H&P for intimate details of this patient's admission. Brief summary this is a pleasant 26-year-old multiparous patient 26 weeks gestation admitted to labor and delivery with kidney stone pain, known history of kidney stones. Patient is given IV hydration and IV pain medications. Ultrasound shows no significant hydronephrosis. Over the evening patient's pain improves she is felt stable for discharge home follow up with me in 4 days. Patient Condition at Discharge: Good Plan - Discharge Summary New Discharge Prescriptions: No Action Thyroid,Pork [Pharmacoepidemiologist Thyroid] 15 mg PO DAILY Pnv No.95/Ferrous Fum/Folic AC [ Multivitamin Tablet] 1 each PO DAILY Discharge Medication List Pnv No.95/Ferrous Fum/Folic AC [ Multivitamin Tablet] 1 each PO DAILY 01/13/22 [History] Thyroid,Pork [Pharmacoepidemiologist Thyroid] 15 mg PO DAILY 01/13/22 [History] Follow up Appointment(s)/Referral(s): Vahe Fagan MD [STAFF PHYSICIAN] - 01/18/22 Patient Instructions/Handouts: Kidney Stones (DC) Activity/Diet/Wound Care/Special Instructions: Increase oral fluids as much as possible. Tylenol as needed for pain. Please follow up Tuesday as scheduled Discharge Disposition: HOME SELF-CARE
[2022-01-14 08:03] VITALS: BP 116/58; PULSE 78; TEMP 98.1
== END 2022-01-14 09:15 | disposition home or self-care (01) ==
LOC: FBPOP 11:05 → 4FBP 12:32
PROVIDERS: ADMIT Obstetrics & Gynecology; ATTEND Obstetrics & Gynecology
DX: O26.832 Pregnancy related renal disease, second trimester (principal); N20.0 Calculus of kidney; Z87.442 Personal history of urinary calculi; Z3A.26 26 weeks gestation of pregnancy; O99.512 Diseases of the respiratory system complicating pregnancy, second trimester; J45.909 Unspecified asthma, uncomplicated; O99.712 Diseases of the skin and subcutaneous tissue complicating pregnancy, second trimester; L30.9 Dermatitis, unspecified; O26.892 Other specified pregnancy related conditions, second trimester; N63.10 Unspecified lump in the right breast, unspecified quadrant; Z79.890 Hormone replacement therapy; Z88.1 Allergy status to other antibiotic agents; Z82.49 Family history of ischemic heart disease and other diseases of the circulatory system
CPT/HCPCS: 96376 ×2; 99213; 96361 ×2; 96374; 80053; 85025; 81003; 76770; G0378 ×2; J0595 ×2

== ENCOUNTER 2022-02-19 10:20 | Outpatient (CLI) | payer BC ==
[2022-02-19 11:12] LABS: Basophils % (A) 0 %; Eosinophils # (A) 0.1 k/uL (0-0.7); Eosinophils % (A) 1 %; HCT 38.2 % (34.0-46.0); HGB 12.2 gm/dL (11.4-16.0); Lymphocytes # (A) 1.9 k/uL (1.0-4.8); Lymphocytes % (A) 17 %; MCH 29.8 pg (25.0-35.0); MCHC 31.8 g/dL (31.0-37.0); MCV 93.6 fL (80.0-100.0); Mean Platelet Volume 9.6; Monocytes # (A) 0.4 k/uL (0-1.0); Monocytes % (A) 4 %; Neutrophils # (A) 8.3 k/uL (1.3-7.7); Neutrophils % (A) 77 %; Platelet Count 222 k/uL (150-450); RBC 4.08 m/uL (3.80-5.40); RDW 13.9 % (11.5-15.5); WBC 10.8 k/uL (3.8-10.6)
[2022-02-19 11:21] LABS: ALT 10 U/L (4-34); AST 14 U/L (14-36); African American GFR (CKD) >90 (>60 ml/min/1.73 sqM); Blood Urea Nitrogen 8 mg/dL (7-17); LDH 329 U/L (313-618); Non-African American GFR(CKD) >90 (>60 ml/min/1.73 sqM); Uric Acid 4.4 mg/dL (3.7-7.4)
[2022-02-19 11:22] LABS: Creatinine,Urine Random 109.7 mg/dL
[2022-02-19 11:40] LABS: Appearance,Urine Cloudy (Clear); Bacteria,Urine Occasional /hpf; Bilirubin,Urine Negative (Negative); Blood,Urine Negative (Negative); Color,Urine Yellow; Glucose,Urine (UA) Negative (Negative); Hyaline Casts,Urine 1 /lpf (0-2); INR 0.9 (<1.2); Ketones,Urine Negative (Negative); Leukocyte Esterase,Urine Trace (Negative); Mucus,Urine Rare /hpf; Nitrite,Urine Negative (Negative); Protein,Urine Trace (Negative); Prothrombin Time 10.1 sec (9.0-12.0); RBC,Urine 2 /hpf (0-5); Specific Gravity,Urine 1.018 (1.001-1.035); Squamous Epithelial Cell,Urine 8 /hpf (0-4); Urobilinogen,Urine <2.0 mg/dL (<2.0); WBC,Urine 5 /hpf (0-5)
[2022-02-19 13:01] VITALS: BP 134/79; PULSE 117; RESP 16; TEMP 97.9
--- NOTE | 2022-02-19 17:09 | P.MSEPDOC ---
Presenting Problems - Arrival Data Date of Arrival on Unit: 02/19/22 Time of Arrival on Unit: 10:28 Mode of Transport: Ambulatory - Complaint OB-Reason for Admission/Chief Complaint: Headache Medical History - Information : 4 Para: 2 Term: 2 : 0 Abortions: Spontaneous or Elective: 1 Number of Living Children: 2 - Gestational Age Gestational Age by CHATO (wks/days): 31 Weeks and 1 Days Review of Systems - Review of Systems Constitutional: No problems Breast: No problems ENT: No problems Cardiovascular: No problems Respiratory: No problems Gastrointestinal: No problems Genitourinary: No problems Musculoskeletal: No problems Neurological: No problems Skin: No problems Vital Signs - Temperature Temperature: 97.9 F Temperature Source: Temporal Artery Scan - Pulse Right Brachial Pulse Rate: 117 Pulse Assessment Method: Automatic Cuff - Respirations Respiratory Rate: 16 Oxygen Delivery Method: Room Air - Blood Pressure Right Arm Blood Pressure: 134/79 Blood Pressure Mean: 97 Blood Pressure Source: Automatic Cuff Physician Notification - Physician Notified Physician Notified Date: 02/19/22 Physician Notified Time: 10:28 Physician: Amy De León New Order Received: Yes - Notification Comment Comment: d/c home Maternal Triage Index - Maternal Triage Index Presenting for scheduled procedure w/no complaint: No - Stat/Priority 1 Stat Priority 1: No - Urgent/Priority 2 Urgent Priority 2: No - Prompt/Priority 3 Prompt Priority 3: No - Non-Urgent/Priority 4 Non-Urgent Priority 4: Yes Criteria Met for Priority 4: headache Disposition - Disposition OB Disposition: Discharge to home Discharge Date: 02/19/22 Discharge Time: 12:11 I agree with the RN Medical Screening Exam: Yes Case reviewed; plan agreed upon as documented in EMR&OBIX.: Yes Diagnosis: HEADACHE, UNSPECIFIED
== END 2022-02-19 13:02 | disposition home or self-care (01) ==
LOC: FBPOP 10:20
PROVIDERS: ATTEND Obstetrics & Gynecology
DX: O26.893 Other specified pregnancy related conditions, third trimester (principal); R51.9 Headache, unspecified; Z3A.31 31 weeks gestation of pregnancy
CPT/HCPCS: 59025; 81001; 82565; 82570; 83615; 84156; 84450; 84460; 84520; 84550; 85025; 85384; 85610; 85730; 99215

== ENCOUNTER 2022-03-03 18:56 | Emergency (ER) | payer BC ==
[2022-03-03 20:24] VITALS: TEMP 97.6
[2022-03-03 20:55] LABS: ALT 11 U/L (4-34); AST 18 U/L (14-36); African American GFR (CKD) >90 (>60 ml/min/1.73 sqM); Albumin 3.7 g/dL (3.5-5.0); Alkaline Phosphatase 74 U/L (38-126); Anion Gap 6 mmol/L; Blood Urea Nitrogen 6 mg/dL (7-17); Calcium 9.1 mg/dL (8.4-10.2); Carbon Dioxide 22 mmol/L (22-30); Chloride 106 mmol/L (98-107); Glucose 90 mg/dL (74-99); Non-African American GFR(CKD) >90 (>60 ml/min/1.73 sqM); Potassium 3.9 mmol/L (3.5-5.1); Sodium 134 mmol/L (137-145); Total Bilirubin 0.4 mg/dL (0.2-1.3); Total Protein 6.4 g/dL (6.3-8.2)
[2022-03-03 21:11] LABS: Basophils % (A) 1 %; Eosinophils # (A) 0.1 k/uL (0-0.7); Eosinophils % (A) 1 %; HGB 12.6 gm/dL (11.4-16.0); Lymphocytes # (A) 1.6 k/uL (1.0-4.8); Lymphocytes % (A) 18 %; MCH 30.2 pg (25.0-35.0); MCHC 33.2 g/dL (31.0-37.0); Mean Platelet Volume 9.7; Monocytes # (A) 0.6 k/uL (0-1.0); Monocytes % (A) 7 %; Neutrophils # (A) 6.2 k/uL (1.3-7.7); Neutrophils % (A) 71 %; Platelet Count 188 k/uL (150-450); RBC 4.18 m/uL (3.80-5.40); RDW 14.4 % (11.5-15.5); WBC 8.7 k/uL (3.8-10.6)
[2022-03-03 21:46] LABS: INR 0.9 (<1.2); Partial Thromboplastin Time 23.5 sec (22.0-30.0); Prothrombin Time 9.8 sec (9.0-12.0)
--- NOTE | 2022-03-03 22:43 | ED ---
General Adult HPI - General Chief complaint: Arrhythmia/Palpitations Stated complaint: 32 wks/heart racing Time Seen by Provider: 03/03/22 22:03 Source: patient, RN notes reviewed Mode of arrival: ambulatory Limitations: no limitations - History of Present Illness Initial comments: 26-year-old female, 32 weeks , presents to the emergency department for evaluation of elevated heart rate. Patient states she has had periodic episodes of elevated heart rate throughout the day today. Patient states her heart rate has been as high as 170 while moving around. Patient states her symptoms are accompanied by flushing and headache. Resting heart rate has been around 120. Patient states she has had intermittent episodes over the past 2-3 weeks, however reports increased frequency today. Complains of mild shortness of breath with activity. Reports movement unchanged. Denies fever, chills, blurry vision, dizziness, chest pain, abdominal pain, cramping, dysuria, hematuria, vaginal bleeding, discharge, or leaking of fluids. - Related Data Home Medications Medication Instructions Recorded Confirmed Pnv No.95/Ferrous Fum/Folic AC 1 each PO DAILY 01/13/22 02/19/22 [ Multivitamin Tablet] Thyroid,Pork [Encyclopedia Research Worker Thyroid] 15 mg PO DAILY 01/13/22 02/19/22 Magnesium 1 tab PO DAILY 02/19/22 02/19/22 Allergies Allergy/AdvReac Type Severity Reaction Status Date / Time azithromycin [From Zithromax] Allergy Rash/Hives Verified 03/03/22 20:24 Review of Systems ROS Statement: Those systems with pertinent positive or pertinent negative responses have been documented in the HPI. ROS Other: All systems not noted in ROS Statement are negative. Past Medical History Past Medical History: Skin Disorder Additional Past Medical History / Comment(s): eczema on arms & legs- uses otc lotion. rt breast mass upper outer quadrant-mild discomfort History of Any Multi-Drug Resistant Organisms: None Reported Past Surgical History: Section, Ear Surgery, Tonsillectomy Additional Past Surgical History / Comment(s): ear surgery x 11 on missy. ears for tubes & polyps, kidney stones. wisdom teeth Past Anesthesia/Blood Transfusion Reactions: No Reported Reaction Past Psychological History: No Psychological Hx Reported Smoking Status: Never smoker Past Alcohol Use History: None Reported Past Drug Use History: None Reported - Past Family History Father Family Medical History: Hypertension General Exam Limitations: no limitations (Well-developed, well-nourished female in no acute distress. Initial temperature 97.6, pulse 100, respirations 16, blood pressure 124/80, pulse ox 97% on room air.) General appearance: alert, in no apparent distress Eye exam: Present: normal appearance, PERRL, EOMI. Absent: scleral icterus, conjunctival injection, periorbital swelling ENT exam: Present: normal exam, mucous membranes moist, TM's normal bilaterally Neck exam: Present: normal inspection, full ROM. Absent: tenderness, meningismu s, lymphadenopathy Respiratory exam: Present: normal lung sounds bilaterally. Absent: respiratory distress, wheezes, rales, rhonchi, stridor Cardiovascular Exam: Present: regular rate, normal rhythm, normal heart sounds. Absent: systolic murmur, diastolic murmur, rubs, gallop, clicks GI/Abdominal exam: Present: soft, normal bowel sounds, other (32 weeks . + movement. Denies cramping.). Absent: distended, tenderness, guarding, rebound, rigid Back exam: Absent: CVA tenderness (R), CVA tenderness (L) Neurological exam: Present: alert, oriented X3, normal gait Psychiatric exam: Present: anxious (somewhat anxious though easily reassured) Skin exam: Present: warm, dry, intact, normal color. Absent: rash Course Vital Signs 03/03/22 03/03/22 03/03/22 20:21 23:03 23:19 Temperature 97.6 F Pulse Rate 100 87 Pulse Rate [ 93 Pulse Oximetery ] Pulse Rate [ 98 Sitting] Pulse Rate [ 108 H Standing] Pulse Rate [ 93 Supine] Respiratory 16 14 Rate Blood Pressure 124/80 126/88 O2 Sat by Pulse 97 97 Oximetry - Reevaluation(s) Reevaluation #1: 03/03/22 23:[address] Fagan regarding findings. Patient will be reassured and discharge home to follow up in the office as scheduled. Medical Decision Making - Medical Decision Making 26-year-old female, 32 weeks , presents to the emergency department for evaluation of elevated heart rate accompanied by shortness of breath and flushing. Upon exam, patient is well-appearing and in no acute distress. She is somewhat anxious though easily reassured. Cardiac monitoring shows heart rate between 93 and 102. Orthostatic measurements are within normal limits. Patient is not experiencing any chest pain, abdominal cramping, vaginal bleeding, or leaking of fluids. Laboratory studies were reviewed. D-dimer is elevated at 0.64 though this is considered normal finding in . Patient does have trace protein in her urine and is encouraged to increase fluids. heart tones were obtained showing a variable rate between 120 and 160. Positive movement. EKG is unremarkable. I did discuss this patient's care with her SUPERVISOR TOWER, Dr. Fagan. She will be discharged home to follow up with him in the office as scheduled. Return parameters discussed in detail. Patient verbalizes understanding and agrees with this plan. Attending: Akash. - Lab Data Result diagrams: 03/03/22 20:41 03/03/22 20:41 Lab Results 03/03/22 03/03/22 03/03/22 Range/Units 20:41 20:41 20:41 WBC 8.7 (3.8-10.6) k/uL RBC 4.18 (3.80-5.40) m/uL Hgb 12.6 (11.4-16.0) gm/dL Hct 38.0 (34.0-46.0) % MCV 91.0 (80.0-100.0) fL MCH 30.2 (25.0-35.0) pg MCHC 33.2 (31.0-37.0) g/dL RDW 14.4 (11.5-15.5) % Plt Count 188 (150-450) k/uL MPV 9.7 Neutrophils % 71 % Lymphocytes % 18 % Monocytes % 7 % Eosinophils % 1 % Basophils % 1 % Neutrophils # 6.2 (1.3-7.7) k/uL Lymphocytes # 1.6 (1.0-4.8) k/uL Monocytes # 0.6 (0-1.0) k/uL Eosinophils # 0.1 (0-0.7) k/uL Basophils # 0.0 (0-0.2) k/uL PT 9.8 (9.0-12.0) sec INR 0.9 (<1.2) APTT 23.5 (22.0-30.0) sec D-Dimer 0.64 H (<0.60) mg/L FEU Sodium 134 L (137-145) mmol/L Potassium 3.9 (3.5-5.1) mmol/L Chloride 106 (98-107) mmol/L Carbon Dioxide 22 (22-30) mmol/L Anion Gap 6 mmol/L BUN 6 L (7-17) mg/dL Creatinine 0.51 L (0.52-1.04) mg/dL Est GFR (CKD-EPI)AfAm >90 (>60 ml/min/1.73 sqM) Est GFR (CKD-EPI)NonAf >90 (>60 ml/min/1.73 sqM) Glucose 90 (74-99) mg/dL Calcium 9.1 (8.4-10.2) mg/dL Magnesium 2.0 (1.6-2.3) mg/dL Total Bilirubin 0.4 (0.2-1.3) mg/dL AST 18 (14-36) U/L ALT 11 (4-34) U/L Alkaline Phosphatase 74 (38-126) U/L Troponin I (0.000-0.034) ng/mL Total Protein 6.4 (6.3-8.2) g/dL Albumin 3.7 (3.5-5.0) g/dL Urine Color Urine Appearance (Clear) Urine pH (5.0-8.0) Ur Specific [place] (1.001-1.035) Urine Protein (Negative) Urine Glucose (UA) (Negative) Urine Ketones (Negative) Urine Blood (Negative) Urine Nitrite (Negative) Urine Bilirubin (Negative) Urine Urobilinogen (<2.0) mg/dL Ur Leukocyte Esterase (Negative) Urine RBC (0-5) /hpf Urine WBC (0-5) /hpf Ur Squamous Epith Cells (0-4) /hpf Urine Bacteria (None) /hpf Urine Mucus (None) /hpf 03/03/22 03/03/22 Range/Units 20:41 22:47 WBC (3.8-10.6) k/uL RBC (3.80-5.40) m/uL Hgb (11.4-16.0) gm/dL Hct (34.0-46.0) % MCV (80.0-100.0) fL MCH (25.0-35.0) pg MCHC (31.0-37.0) g/dL RDW (11.5-15.5) % Plt Count (150-450) k/uL MPV Neutrophils % % Lymphocytes % % Monocytes % % Eosinophils % % Basophils % % Neutrophils # (1.3-7.7) k/uL Lymphocytes # (1.0-4.8) k/uL Monocytes # (0-1.0) k/uL Eosinophils # (0-0.7) k/uL Basophils # (0-0.2) k/uL PT (9.0-12.0) sec INR (<1.2) APTT (22.0-30.0) sec D-Dimer (<0.60) mg/L FEU Sodium (137-145) mmol/L Potassium (3.5-5.1) mmol/L Chloride (98-107) mmol/L Carbon Dioxide (22-30) mmol/L Anion Gap mmol/L BUN (7-17) mg/dL Creatinine (0.52-1.04) mg/dL Est GFR (CKD-EPI)AfAm (>60 ml/min/1.73 sqM) Est GFR (CKD-EPI)NonAf (>60 ml/min/1.73 sqM) Glucose (74-99) mg/dL Calcium (8.4-10.2) mg/dL Magnesium (1.6-2.3) mg/dL Total Bilirubin (0.2-1.3) mg/dL AST (14-36) U/L ALT (4-34) U/L Alkaline Phosphatase (38-126) U/L Troponin I <0.012 (0.000-0.034) ng/mL Total Protein (6.3-8.2) g/dL Albumin (3.5-5.0) g/dL Urine Color Yellow Urine Appearance Cloudy H (Clear) Urine pH 7.0 (5.0-8.0) Ur Specific [place] 1.017 (1.001-1.035) Urine Protein Trace H (Negative) Urine Glucose (UA) Negative (Negative) Urine Ketones Negative (Negative) Urine Blood Negative (Negative) Urine Nitrite Negative (Negative) Urine Bilirubin Negative (Negative) Urine Urobilinogen <2.0 (<2.0) mg/dL Ur Leukocyte Esterase Negative (Negative) Urine RBC 10 H (0-5) /hpf Urine WBC 3 (0-5) /hpf Ur Squamous Epith Cells 5 H (0-4) /hpf Urine Bacteria Few H (None) /hpf Urine Mucus Few H (None) /hpf - EKG Data EKG shows normal: sinus rhythm Rate: normal EKG Comments: EKG obtained at 20:27 shows sinus rhythm. Ventricular rate 88, RI interval 147, QRS duration 89, QT/QTc is 337/383. Interpretation normal ECG. Disposition Clinical Impression: Third trimester , Palpitations Disposition: HOME SELF-CARE Condition: Stable Instructions (If sedation given, give patient instructions): Heart Palpitations (ED), (ED) Additional Instructions: Increase your intake of fluids. Record/log any additional episodes including time of day, accompanying symptoms, and measurements. Follow up with Dr. Fagan as scheduled. Return to the emergency department with any new, worsening, or concerning symptoms. Is patient prescribed a controlled substance at d/c from ED?: No Referrals: Seamus Rainey DO [Primary Care Provider] - 1-2 days Vahe Fagan MD [STAFF PHYSICIAN] - 1-2 days Time of Disposition: 00:07
[2022-03-03 23:04] LABS: Appearance,Urine Cloudy (Clear); Bacteria,Urine Few /hpf; Bilirubin,Urine Negative (Negative); Blood,Urine Negative (Negative); Color,Urine Yellow; Glucose,Urine (UA) Negative (Negative); Ketones,Urine Negative (Negative); Leukocyte Esterase,Urine Negative (Negative); Mucus,Urine Few /hpf; Nitrite,Urine Negative (Negative); Protein,Urine Trace (Negative); RBC,Urine 10 /hpf (0-5); Specific Gravity,Urine 1.017 (1.001-1.035); Squamous Epithelial Cell,Urine 5 /hpf (0-4); Urobilinogen,Urine <2.0 mg/dL (<2.0); WBC,Urine 3 /hpf (0-5)
[2022-03-03 23:19] VITALS: BP 126/88; RESP 14
[2022-03-03 23:20] VITALS: PULSE 93
== END 2022-03-04 00:35 | disposition home or self-care (01) ==
LOC: EC 18:56
DX: O26.893 Other specified pregnancy related conditions, third trimester (principal); R00.2 Palpitations; Z3A.32 32 weeks gestation of pregnancy; Z88.1 Allergy status to other antibiotic agents
CPT/HCPCS: 36415; 80053; 81001; 83735; 84484; 85025; 85379; 85610; 85730; 93005; 99285

== ENCOUNTER 2022-03-15 12:41 | Outpatient (CLI) | payer BC ==
--- NOTE | 2022-03-15 14:12 | US ---
EXAMINATION TYPE: US OB BPP wo non-stress DATE OF EXAM: 03/15/2022 COMPARISON: NONE CLINICAL HISTORY: abnormal HR. EXAM PERFORMED: Transabdominal (TA) BPP PARAMETERS: PRESENTATION: Vertex HEART RATE: 136 bpm RHYTHM: Normal JUAN A: 16.8 DIAPHRAGM IMAGED: yes BPP SCORIN. Breathin (1 episode of breathing of 30 second duration in 30 minutes of scanning time) 2. Movement: 2 (at least 3 discrete body movements in 30 minutes) 3. Tone: 2 (1 episode of active flexion/extension of limb) 4. JUAN A: 2 (JUAN A index > 5cm) TOTAL SCORE: 8 / 8 Impression: Normal NST.
[2022-03-15 15:01] VITALS: BP 122/79; PULSE 112; RESP 16; TEMP 97.2
--- NOTE | 2022-03-20 06:43 | P.MSEPDOC ---
Presenting Problems - Arrival Data Date of Arrival on Unit: 03/15/22 Time of Arrival on Unit: 12:47 Mode of Transport: Ambulatory - Complaint OB-Reason for Admission/Chief Complaint: Possible Onset of Labor Medical History - Information : 4 Para: 2 Term: 2 : 0 Abortions: Spontaneous or Elective: 0 Number of Living Children: 2 - Gestational Age Gestational Age by CHATO (wks/days): 34 Weeks and 4 Days Review of Systems - Review of Systems Constitutional: No problems Breast: No problems ENT: No problems Cardiovascular: No problems Respiratory: No problems Gastrointestinal: No problems Genitourinary: No problems Musculoskeletal: No problems Neurological: No problems Skin: No problems Vital Signs - Temperature Temperature: 97.2 F Temperature Source: Temporal Artery Scan - Pulse Right Brachial Pulse Rate: 112 Pulse Assessment Method: Automatic Cuff - Respirations Respiratory Rate: 16 Oxygen Delivery Method: Room Air - Blood Pressure Right Arm Blood Pressure: 122/79 Blood Pressure Mean: 93 Blood Pressure Source: Automatic Cuff Medical Screen Scoring - Assessment - Baby A Baseline FHR: 135 Heart Rate - NICHD Category: Category I (Normal) Physician Notification - Physician Notified Physician Notified Date: 03/15/22 Physician Notified Time: 13:05 Physician: Amy De León Order Received: Yes - Notification Comment Comment: bpp and check cervix Maternal Triage Index - Maternal Triage Index Presenting for scheduled procedure w/no complaint: No - Stat/Priority 1 Stat Priority 1: No - Urgent/Priority 2 Urgent Priority 2: No - Prompt/Priority 3 Prompt Priority 3: No - Non-Urgent/Priority 4 Non-Urgent Priority 4: Yes Criteria Met for Priority 4: back pain Disposition - Disposition OB Disposition: Discharge to home Discharge Date: 03/15/22 Discharge Time: 14:27 I agree with the RN Medical Screening Exam: Yes Case reviewed; plan agreed upon as documented in EMR&OBIX.: Yes Diagnosis: PRIMARY INADEQUATE CONTRACTIONS
== END 2022-03-15 15:03 | disposition home or self-care (01) ==
LOC: FBPOP 12:41
PROVIDERS: ATTEND Obstetrics & Gynecology
DX: O47.03 False labor before 37 completed weeks of gestation, third trimester (principal); Z3A.34 34 weeks gestation of pregnancy
CPT/HCPCS: 59025; 76819; 99213

== ENCOUNTER 2022-04-02 08:38 | Inpatient (IN) | payer BC ==
[2022-04-02 09:36] LABS: Creatinine,Urine Random 54.3 mg/dL; Protein/Creatinine Ratio,Urine 0.184
[2022-04-02 09:39] LABS: Basophils % (A) 0 %; Eosinophils # (A) 0.1 k/uL (0-0.7); Eosinophils % (A) 1 %; HCT 36.8 % (34.0-46.0); HGB 12.3 gm/dL (11.4-16.0); Lymphocytes % (A) 21 %; MCH 29.9 pg (25.0-35.0); MCHC 33.3 g/dL (31.0-37.0); MCV 89.7 fL (80.0-100.0); Mean Platelet Volume 9.9; Monocytes # (A) 0.4 k/uL (0-1.0); Monocytes % (A) 4 %; Neutrophils # (A) 6.7 k/uL (1.3-7.7); Neutrophils % (A) 71 %; Platelet Count 202 k/uL (150-450); RDW 14.2 % (11.5-15.5); WBC 9.5 k/uL (3.8-10.6)
[2022-04-02 09:42] LABS: Appearance,Urine Clear (Clear); Bilirubin,Urine Negative (Negative); Blood,Urine Negative (Negative); Color,Urine Light Yellow; Glucose,Urine (UA) Negative (Negative); Ketones,Urine Negative (Negative); Leukocyte Esterase,Urine Negative (Negative); Nitrite,Urine Negative (Negative); PH, Urine 7.5 (5.0-8.0); Protein,Urine Negative (Negative); Specific Gravity,Urine 1.009 (1.001-1.035); Urobilinogen,Urine <2.0 mg/dL (<2.0)
[2022-04-02 09:47] LABS: ALT 9 U/L (4-34); AST 14 U/L (14-36); African American GFR (CKD) >90 (>60 ml/min/1.73 sqM); Blood Urea Nitrogen 6 mg/dL (7-17); LDH 385 U/L (313-618); Non-African American GFR(CKD) >90 (>60 ml/min/1.73 sqM); Uric Acid 4.8 mg/dL (3.7-7.4)
[2022-04-02] MEDS ORDERED: CITRIC ACID-SODIUM CITRATE 15 ML CUP PO ONE (09:57)
[2022-04-02] MEDS ORDERED: LACTATED RINGERS 1,000 ML IV ONE (09:57)
[2022-04-02] MEDS: LACTATED RINGERS 1,000 ML IV SCH ×2 (10:45→21:19)
--- NOTE | 2022-04-02 11:55 | P.HPOB ---
History of Present Illness H&P Date: 04/02/22 Chief Complaint: Pain and hypertension. This patient is a pleasant 26-year-old 4 para 2 female estimated date of confinement 04/22/2022 estimated gestational age 37 and one sevenths weeks gestation who presented to my office for nonstress test this morning is felt th at she's been having severe low pelvic pain for 3 days and concern about elevated blood pressure. Indeed her blood pressure was elevated in the office and she was sent to labor and delivery for evaluation. Patient is having persistent pressure elevations greater than 140/90 and has a history of ge stational hypertension with a previous . Patient's preeclampsia labs are normal. is complicated by first trimester exposure to a HIDA scan and a previous baby with a cardiac defect. She therefore was referred to maternal- medicine and has had 2 cardiac echoes which were normal. This baby did develop PACs at 35 weeks and again evaluation was negative. Patient also has been treated for Peace's thyroiditis. Patient's had 2 previous sections. Review of Systems Genitourinary: Reports Menstruation: Reports amenorrhea Past Medical History Past Medical History: Thyroid Disorder Additional Past Medical History / Comment(s): History of preeclampsia with first ; multiple ear surgeries; kidney stones History of Any Multi-Drug Resistant Organisms: None Reported Past Surgical History: Section, Ear Surgery, Tonsillectomy Additional Past Surgical History / Comment(s): ear surgery x 11 on missy. ears for tubes & polyps, kidney stones. wisdom teeth Past Anesthesia/Blood Transfusion Reactions: No Reported Reaction Past Psychological History: No Psychological Hx Reported Smoking Status: Never smoker Past Alcohol Use History: None Reported Past Drug Use History: None Reported - Past Family History Father Family Medical History: Hypertension Mother Family Medical History: No Reported History Medications and Allergies Home Medications Medication Instructions Recorded Confirmed Type Pnv No.95/Ferrous Fum/Folic AC 1 each PO DAILY 01/13/22 04/02/22 History [ Multivitamin Tablet] Thyroid,Pork [Makeup Sales Consultant Thyroid] 15 mg PO DAILY 01/13/22 04/02/22 History Allergies Allergy/AdvReac Type Severity Reaction Status Date / Time azithromycin [From Zithromax] Allergy Rash/Hives Verified 04/02/22 09:08 Exam Vital Signs Temp Pulse Resp BP Pulse Ox 04/02/22 11:27 97.5 F L 104 H 18 159/92 100 Intake and Output 04/01/22 04/02/22 04/02/22 22:59 06:59 14:59 Other: Weight 90.718 kg - OBG Physical Exam Abdomen: bowel sounds normal, no diffuse tenderness, no bruit present, no guarding noted, no hepatomegaly, no splenomegaly, no mass Vulva: both: normal Uterus: enlarged Results blood work shows she is B positive, rubella immune, RPR nonreactive, hepatitis B is negative, Glucola was abnormal with a normal three-hour gtt., ultrasounds have shown normal anatomy including cardiac echo 2. Result Diagrams: 04/02/22 09:29 04/02/22 09:29 Abnormal Lab Results - Last 24 Hours (Table) 04/02/22 Range/Units 09:29 BUN 6 L (7-17) mg/dL Assessment and Plan Assessment: This is a pleasant 26-year-old 4 para 2 female 37 and one sevenths weeks gestation with gestational hypertension. Patient's had 2 previous sections. Per current recommendations were proceed with delivery at this time. Patient I discussed this surgery and risks including risks of infection, bleeding, possible injury bowel, bladder, vessels, and/or other organs. Patient and I and her discussed the fact that she is 37 weeks and there is a chance this baby could require respiratory support. All the patient's questions are answered and a written consent is obtained. (1) 37 weeks gestation of Current Visit: Yes Status: Acute Code(s): Z3A.37 - 37 WEEKS GESTATION OF SNOMED Code(s): 72484124 (2) Gestational hypertension Current Visit: Yes Status: Acute Code(s): O13.9 - GESTATIONAL HTN W/O SIGNIFICANT PROTEINURIA, UNSP TRIMESTER SNOMED Code(s): 64824827 (3) Previous delivery affecting Current Visit: No Status: Acute Code(s): O34.219 - MATERNAL CARE FOR UNSP TYPE SCAR FROM PREVIOUS DEL SNOMED Code(s): 513198464
[2022-04-02] MEDS ORDERED: NALBUPHINE 10 MG/ML (1 ML AMP) ONE (12:28)
[2022-04-02] MEDS ORDERED: KETOROLAC 15 MG/ML 1 ML VIAL ONE (12:28)
[2022-04-02] MEDS ORDERED: MORPHINE SULFATE (PF) 0.3 MG/0.3 ML SYR ONE (12:28)
[2022-04-02] MEDS ORDERED: ONDANSETRON 4 MG/2 ML VIAL ONE (12:28)
[2022-04-02] MEDS ORDERED: PHENYLEPHRINE-0.9% NACL SYG 1,000 MCG/10 ML SYRINGE ONE (12:28)
[2022-04-02] MEDS ORDERED: diphenhydrAMINE 25 MG CAP PO PRN (13:23)
[2022-04-02] MEDS ORDERED: SIMETHICONE 80 MG CHEWABLE PO PRN (13:23)
[2022-04-02] MEDS ORDERED: NALOXONE 0.4 MG/ML 1 ML VIAL IV PRN (13:23)
[2022-04-02] MEDS ORDERED: diphenhydrAMINE 50 MG/ML 1 ML VIAL IVP PRN (13:23)
[2022-04-02] MEDS ORDERED: ONDANSETRON 4 MG/2 ML VIAL IVP PRN (13:23)
[2022-04-02] MEDS ORDERED: ZOLPIDEM 5 MG TAB PO PRN (13:23)
[2022-04-02] MEDS ORDERED: METOCLOPRAMIDE 5 MG/ML 2 ML VIAL IVP PRN (13:23)
[2022-04-02] MEDS ORDERED: LANOLIN CREAM 5 GM TUBE TOPICAL PRN (13:23)
[2022-04-02] MEDS ORDERED: OXYTOCIN 30 UNITS/500 ML NS 30 UNIT in SALINE 1 500ML.BAG IV SCH (13:30)
--- NOTE | 2022-04-02 13:33 | P.OP ---
Date of Procedure: 04/02/22 Preoperative Diagnosis: #1: 37 and one sevenths week intrauterine . #2: Previous section 2. #3: Gestational hypertension. Postoperative Diagnosis: Same Procedure(s) Performed: Repeat low transverse section Anesthesia: spinal Surgeon: Vahe Fagan Service Desk Manager #1: Yessica Dumont Estimated Blood Loss (ml): 500 Pathology: other (Placenta) Condition: stable Disposition: floor Indications for Procedure: Please see dictated H&P for intimate details of this patient's admission. In brief summary this is a pleasant 26-year-old 4 para 2 female 37 and one sevenths weeks gestation admitted from my office with complaints of high blood pressure and lower pelvic pain. Patient's found to have persistent blood pressure elevations greater than 140/90 with a negative preeclampsia evaluation. Patient does have a history of gestational hypertension in the past. Per current recommendations we are proceeded for delivery. Patient does understand the surgery and risks and risks of infection, bleeding possible injury to bowel, bladder, vessels. All the patient's questions are answered and a written consent is obtained. Operative Findings: This is a vigorous viable male infant Apgars 9 and 9 delivery time was 1252 hrs. Patient normal appearing uterus, tubes, ovaries. Description of Procedure: This patient has Merida catheter placed to straight drain. She subsequently taken to the operating room where she sat up for spinal anesthetic. Appropriate timeout is done. Spinal anesthetic is administered without incident. Patient is laid in the supine position. She has abdominal prep and drape. Scalpels then taken the previous Pfannenstiel incision is incised. A second scalpel is taken down the fascia the fascia scored with a knife. Fascial incision extended bilaterally using the Blair scissors. Fascia is then dissected off the rectus muscles sharply. Rectus muscles are peritoneum identified and entered sharply. Peritoneal incision extended superior and inferior without difficulty. Bladder blade is then placed. Bladder peritoneum was taken off the lower uterine segment. Scalpels and taken low transverse uterine incision is made. Using a hemostat I enter the uterine cavity bluntly and there is loss of clear fluid. This incision is extended bluntly as well. 's head was guided through the incision. Mouth and nares are bulb suctioned. Is no evidence of a nuchal cord. With more fundal pressure we deliver the rest this infant's body. This is a vigorous viable male Apgars are 9 and 9 delivery time was 1252 hrs. After delivery of the infant, the umbilical cord is doubly clamped and cut appears to be trivascular. Placenta is then manually extracted intact. Uterus is explored and all debris is removed. Uterine incision then isolated with Petersen clamps. Uterine incision closed in 0 Vicryl running locked fashion 2. This is done in 2 layers. Additional sutures are placed the left and right side for excellent hemostasis. The bladder peritoneum was then reapproximated using 3-0 Vicryl. Excess fluid is removed from the abdomen. Uterus, tubes, ovaries appear normal for term gestation. Uterus placed back into the abdomen. Parietal peritoneum was then closed in 0 Vicryl running fashion. Rectus muscles reapproximated Vicryl interrupted fashion. Fascial incision is then closed using 0 PDS. Fascial incision is intact and hemostatic. Subcutaneous tissues and closed using a 3-0 Vicryl. Skin is and closed using rosario. All counts are correct 3. No complications. and mother are taken to the birthing suite in satisfactory condition.
[2022-04-02] MEDS: ACETAMINOPHEN TAB 500 MG TAB PO SCH (15:39)
[2022-04-02] MEDS: SENNOSIDES-DOCUSATE SODIUM 1 EACH TAB PO SCH (20:55)
[2022-04-02] MEDS: IBUPROFEN 600 MG TAB PO SCH (21:19)
[2022-04-03] MEDS: ACETAMINOPHEN TAB 500 MG TAB PO SCH ×5 (00:17→22:15)
[2022-04-03] MEDS: IBUPROFEN 600 MG TAB PO SCH ×4 (00:23→20:14)
[2022-04-03] MEDS: KETOROLAC 15 MG/ML 1 ML VIAL IVP SCH ×2 (00:24→04:25)
[2022-04-03] MEDS: LACTATED RINGERS 1,000 ML IV SCH ×2 (02:02→16:45)
[2022-04-03] MEDS: SENNOSIDES-DOCUSATE SODIUM 1 EACH TAB PO SCH ×2 (07:50→20:14)
--- NOTE | 2022-04-03 08:47 | P.PN ---
Progress Note - Text Date: 04/03/2022 Time: 07:51 The patient is status post section Vital signs stable VAS: 0-10 Patient has no complaints of pain. The patient incurred some minimal itching yesterday, this itching is now subsiding. Pain meds to be managed by service.
[2022-04-03 08:48] LABS: Basophils % (A) 0 %; Eosinophils # (A) 0.2 k/uL (0-0.7); Eosinophils % (A) 1 %; HCT 34.9 % (34.0-46.0); HGB 11.7 gm/dL (11.4-16.0); Lymphocytes % (A) 16 %; MCH 30.3 pg (25.0-35.0); MCHC 33.4 g/dL (31.0-37.0); MCV 90.6 fL (80.0-100.0); Mean Platelet Volume 10.2; Monocytes # (A) 0.6 k/uL (0-1.0); Monocytes % (A) 5 %; Neutrophils % (A) 77 %; Platelet Count 168 k/uL (150-450); RBC 3.85 m/uL (3.80-5.40); RDW 13.7 % (11.5-15.5)
--- NOTE | 2022-04-03 12:18 | P.PNOBGPC ---
Subjective - Subjective Principal diagnosis: Status post repeat section postoperative day #1 Interval history: Patient is doing well. She is ambulating. Her pain is well-controlled on oxycodone and Tylenol. She is passing flatus but no bowel movement yet. Bleeding has decreased. She is breast-feeding. Patient reports: Reports appetite normal, Reports voiding normally, Reports pain well controlled, Reports ambulating normally : doing well, nursing well Objective - Vital Signs Latest vital signs: Vital Signs Temp Pulse Resp BP Pulse Ox 04/03/22 08:00 97.9 F 82 16 133/82 98 04/03/22 04:00 98.3 F 82 16 107/70 96 04/03/22 00:00 98.3 F 82 16 107/70 96 04/02/22 20:00 97.8 F 89 16 126/83 97 04/02/22 15:43 97.6 F 94 16 120/78 04/02/22 15:25 94 16 120/78 04/02/22 14:55 66 118/73 04/02/22 14:25 105 H 128/56 04/02/22 14:10 77 117/81 04/02/22 13:55 87 127/81 04/02/22 13:40 89 121/80 04/02/22 13:33 97.4 F L 89 18 133/81 97 Intake and Output 04/02/22 04/03/22 04/03/22 22:59 06:59 14:59 Intake Total 400 Output Total 488 2000 500 Balance -488 -1600 -500 Intake: Oral 400 Output: Urine 2000 500 Straight 2000 Output, Quantitative 488 Blood Loss - Exam Extremities: Present: normal. Absent: tenderness, edema Abdomen: Present: normal appearance, soft (Positive bowel sounds 4). Absent: distention, tenderness Incision: Present: normal, dry, intact. Absent: erythematous Uterus: Present: normal, firm. Absent: tenderness - Labs Labs: Abnormal Lab Results - Last 24 Hours (Table) 04/03/22 Range/Units 08:33 WBC 13.0 H (3.8-10.6) k/uL Neutrophils # 10.0 H (1.3-7.7) k/uL Assessment and Plan Assessment: Status post repeat low transverse section postoperative day #1 Plan: Continue with postoperative care today. Will advance diet as tolerated.
[2022-04-04 00:37] VITALS: TEMP 98.5
[2022-04-04] MEDS: IBUPROFEN 600 MG TAB PO SCH ×2 (02:32→08:00)
[2022-04-04] MEDS: ACETAMINOPHEN TAB 500 MG TAB PO SCH ×2 (05:41→11:36)
[2022-04-04] MEDS: SENNOSIDES-DOCUSATE SODIUM 1 EACH TAB PO SCH (09:03)
[2022-04-04 09:11] VITALS: BP 126/82; PULSE 87; RESP 16
--- NOTE | 2022-04-04 11:06 | P.DS ---
Providers Date of admission: 04/02/22 09:51 Expected date of discharge: 04/04/22 Attending physician: Vahe Fagan Primary care physician: Stated None Hospital Course: This is a 26-year-old female 4 para 2 at 37 and one sevenths weeks who presented with gestational hypertension. Please see history and physical for details of patient's admission. She underwent a repeat low transverse section on 04/02/2022 and delivered a viable male with scores of 9 at 1 minute and 9 at 5 minutes and weight is 7 lbs. 0 oz. Her postoperative and course has been uncomplicated. Lochia has been decreasing. Pain is well-controlled with ibuprofen, Tylenol, and oxycodone. She is passing flatus but no bowel movement yet. She is breast-feeding. Vital signs are stable. Abdomen is soft with fundus firm and nontender. Extremities show negative Homans. Impression is status post repeat low transverse section postoperative day #2. Plan is to discharge home today. Routine postoperative and instructions are given. She will be given prescriptions per Dr. Fagan. She is advised to follow up with Dr. Fagan in 1 week for a postoperative check and in 6 weeks for check. She is advised to call the office if she has any further questions or concerns prior to her appointment time. Procedures: Repeat low transverse section on 04/02/2022 with delivery of a viable male Patient Condition at Discharge: Stable Plan - Discharge Summary New Discharge Prescriptions: New Ibuprofen [Motrin] 600 mg PO Q6H #40 tab oxyCODONE HCL [OxyIR] 5 mg PO Q4HR PRN #18 tab PRN Reason: Pain Scale 4 - 6 No Action Thyroid,Pork [Abrasive Wheel Molder Thyroid] 15 mg PO DAILY Pnv No.95/Ferrous Fum/Folic AC [ Multivitamin Tablet] 1 each PO DAILY Discharge Medication List Pnv No.95/Ferrous Fum/Folic AC [ Multivitamin Tablet] 1 each PO DAILY 01/13/22 [History] Thyroid,Pork [Abrasive Wheel Molder Thyroid] 15 mg PO DAILY 01/13/22 [History] Ibuprofen [Motrin] 600 mg PO Q6H #40 tab 04/02/22 [Rx] oxyCODONE HCL [OxyIR] 5 mg PO Q4HR PRN #18 tab 04/02/22 [Rx] Follow up Appointment(s)/Referral(s): Vahe Fagan MD [STAFF PHYSICIAN] - 1 Week Activity/Diet/Wound Care/Special Instructions: Instructions 1. Do not begin any exercise program for 3 weeks. 2. Do not resume sexual relations for 3 weeks or longer if uncomfortable. 3. You may take tub baths or showers at any time. 4. You may use tampons if desired after 3 weeks. 5. Keep the area of episiotomy (stitches) clean and dry. 6. If you are not nursing, wear a good fitting, supportive bra during the day and limit fluid intake for at least 1 week to prevent breast engorgement. 7. Call the office, [phone], within the next week to make appointment for your 6 week checkup if it has not already been made. 8. Report any of the following occurrences to the doctor promptly: a. Heavy, excessive bleeding b. Chills, fever c. Burning or frequency of urination d. Pain or redness and breasts if nursing e. Increasing pain or swelling in episiotomy (stitches). In addition to the above instructions, the following additional should be followed: 1. No heavy lifting or straining (exercising) until after 6 week checkup. 2. Keep abdominal incision clean and dry: You may wear a dressing if more comfortable. 3. Make office appointment for 10 days after going home or as instructed by her doctor. Discharge Disposition: HOME SELF-CARE
--- NOTE | 2022-04-05 19:06 | P.MSEPDOC ---
Presenting Problems - Arrival Data Date of Arrival on Unit: 04/02/22 Time of Arrival on Unit: 09:51 Mode of Transport: Ambulatory - Complaint OB-Reason for Admission/Chief Complaint: PIH Comment: Pt sent over from Dr. Fagan's office for PIH workup Medical History - Information : 4 Para: 2 Term: 2 : 0 Abortions: Spontaneous or Elective: 1 Number of Living Children: 2 - Gestational Age Gestational Age by CHATO (wks/days): 37 Weeks and 1 Days - History Complications: Other Comment: has PVCs Review of Systems - Review of Systems Constitutional: No problems Breast: No problems ENT: No problems Cardiovascular: No problems Respiratory: No problems Gastrointestinal: No problems Genitourinary: No problems Musculoskeletal: No problems Neurological: No problems Skin: No problems Vital Signs - Temperature Temperature: 98.5 F Temperature Source: Oral - Pulse Right Pulse Rate: 87 Pulse Assessment Method: Automatic Cuff - Respirations Respiratory Rate: 16 Oxygen Delivery Method: Room Air O2 Sat by Pulse Oximetry: 97 - Blood Pressure Right Arm Blood Pressure: 126/82 Blood Pressure Mean: 96 Blood Pressure Source: Automatic Cuff Medical Screen Scoring - Assessment - Baby A Baseline FHR: 130 Heart Rate - NICHD Category: Category I (Normal) NST: Reactive Physician Notification - Physician Notified Physician Notified Date: 04/02/22 Physician Notified Time: 09:55 Physician: Vahe Fagan New Order Received: Yes - Notification Comment Comment: Pt was seen over at Dr. Christianson office for her normal OB appt, states that she is in a lot of pain. Dr. Fagan called over with orders for PIH work up because her blood pressure was high in the office. 03/28/22 @ 0628: Dr. Fagan called to inform RN that he has seen the pt's BPs from TR at the office. RN to start an IV on patient, prepare for the likelyhood of pt having her C/S around lunch time. Lab work has been sent, awaiting results. 03/28/22 @ 0955: RN spoke with Dr. Fagan, reported on maternal/ status, BPs, lab results. RN to prep pt for repeat C/S around [id number] this afternoon. RN to put order set in for C/S. Maternal Triage Index - Maternal Triage Index Presenting for scheduled procedure w/no complaint: No - Stat/Priority 1 Stat Priority 1: No - Urgent/Priority 2 Urgent Priority 2: Yes Provider Notified: Vahe Fagan Provider Notified Time: 09:28 Criteria Met for Priority 2: Pt has BPs >140 SBP and >90 DBP Disposition - Disposition OB Disposition: Admit Discharge Date: 04/04/22 Discharge Time: 12:00 I agree with the RN Medical Screening Exam: Yes Case reviewed; plan agreed upon as documented in EMR&OBIX.: Yes Diagnosis: GESTATIONAL HTN W/O SIGNIFICANT PROTEINURIA, THIRD TRIMESTER (Patient is admitted for delivery)
== END 2022-04-04 12:00 | disposition home or self-care (01) | DRG 788 ==
LOC: FBPOP 08:38 → 4FBP 09:51
PROVIDERS: ADMIT Obstetrics & Gynecology; ATTEND Obstetrics & Gynecology
PROC: 4A0HXCZ Measurement of Products of Conception, Cardiac Rate, External Approach (ICD-10-PCS; 2022-04-02)
PROC: 10D00Z1 Extraction of Products of Conception, Low, Open Approach (ICD-10-PCS; principal; 2022-04-02 12:00)
DX: O34.211 Maternal care for low transverse scar from previous cesarean delivery (principal); E06.3 Autoimmune thyroiditis; O13.4 Gestational [pregnancy-induced] hypertension without significant proteinuria, complicating childbirth; O99.73 Diseases of the skin and subcutaneous tissue complicating the puerperium; L29.9 Pruritus, unspecified; O99.284 Endocrine, nutritional and metabolic diseases complicating childbirth; Z37.0 Single live birth; Z3A.37 37 weeks gestation of pregnancy; Z82.49 Family history of ischemic heart disease and other diseases of the circulatory system; Z87.442 Personal history of urinary calculi; Z88.1 Allergy status to other antibiotic agents; Z87.59 Personal history of other complications of pregnancy, childbirth and the puerperium
CPT/HCPCS: 59025; 81003; 82565; 82570; 83615; 84156; 84450; 84460; 84520; 84550; 85025; 86850; 86900; 86901; 99215

== ENCOUNTER → 2022-08-17 | Outpatient (CLI) | payer BC ==
--- NOTE | 2022-08-17 12:35 | US ---
EXAMINATION TYPE: US thyroid st tissue head/neck DATE OF EXAM: 08/17/2022 COMPARISON: NONE CLINICAL HISTORY: R22.2 localized swelling/mass/lump trunk. Peace's disease GLAND SIZE: Right Lobe: 5.8 x 1.3 x 2.0 cm Overall Parenchyma: homogenous Left Lobe: 5.3 x 1.6 x 1.5 cm Overall Parenchyma: homogeneous Isthmus Thickness: 0.2 cm NODULES RIGHT: # of nodules measured on right: 0 LEFT: # of nodules measured on left: 0 ISTHMUS: # of nodules measured in the isthmus: 0 Bilateral neck scanned, no evidence of lymphadenopathy. IMPRESSION: 1. No discrete thyroid nodules identified. 2. Mild thyromegaly with diffusely homogeneous thyroid echotexture.
== END | disposition home or self-care (01) ==
LOC: RADUSWWP 12:10
PROVIDERS: ATTEND Family Medicine
DX: R22.0 Localized swelling, mass and lump, head (principal)
CPT/HCPCS: 76536

== ENCOUNTER 2023-07-26 19:30 | Observation (INO) | payer OTHER ==
[2023-07-26 20:27] LABS: Amorphous Sediment,Urine Rare /hpf; Appearance,Urine Clear (Clear); Bacteria,Urine Rare /hpf; Bilirubin,Urine Negative (Negative); Blood,Urine Moderate (Negative); Color,Urine Colorless; Glucose,Urine (UA) Negative (Negative); Ketones,Urine Negative (Negative); Leukocyte Esterase,Urine Negative (Negative); Mucus,Urine Rare /hpf; Nitrite,Urine Negative (Negative); PH, Urine 6.5 (5.0-8.0); Protein,Urine Negative (Negative); RBC,Urine 26 /hpf (0-5); Specific Gravity,Urine 1.007 (1.001-1.035); Squamous Epithelial Cell,Urine 2 /hpf (0-4); Urobilinogen,Urine <2.0 mg/dL (<2.0); WBC,Urine 1 /hpf (0-5)
[2023-07-26] MEDS ORDERED: NALBUPHINE 10 MG/ML (10 ML MDV) IV STA (20:37)
[2023-07-26] MEDS: LACTATED RINGERS 1,000 ML IV SCH ×2 (21:06→22:21)
[2023-07-26] MEDS ORDERED: ONDANSETRON 4 MG/2 ML VIAL IVP PRN (21:26)
[2023-07-26] MEDS ORDERED: NALBUPHINE 10 MG/ML (10 ML MDV) IV PRN (21:27)
[2023-07-26 21:35] LABS: Basophils % (A) 0 %; Eosinophils # (A) 0.2 k/uL (0-0.7); Eosinophils % (A) 2 %; HCT 40.1 % (34.0-46.0); HGB 13.9 gm/dL (11.4-16.0); Lymphocytes # (A) 2.8 k/uL (1.0-4.8); Lymphocytes % (A) 23 %; MCH 31.6 pg (25.0-35.0); MCHC 34.6 g/dL (31.0-37.0); MCV 91.2 fL (80.0-100.0); Mean Platelet Volume 10.8; Monocytes # (A) 0.6 k/uL (0-1.0); Monocytes % (A) 5 %; Neutrophils # (A) 8.3 k/uL (1.3-7.7); Neutrophils % (A) 69 %; Platelet Count 185 k/uL (150-450); RDW 13.5 % (11.5-15.5); WBC 12.1 k/uL (3.8-10.6)
[2023-07-26 21:45] LABS: ALT 14 U/L (4-34); AST 17 U/L (14-36); African American GFR (CKD) >90 (>60 ml/min/1.73 sqM); Albumin 3.8 g/dL (3.5-5.0); Alkaline Phosphatase 59 U/L (38-126); Anion Gap 10 mmol/L; Blood Urea Nitrogen 9 mg/dL (7-17); Calcium 9.6 mg/dL (8.4-10.2); Carbon Dioxide 20 mmol/L (22-30); Chloride 106 mmol/L (98-107); Glucose 80 mg/dL (74-99); Non-African American GFR(CKD) >90 (>60 ml/min/1.73 sqM); Potassium 4.4 mmol/L (3.5-5.1); Sodium 136 mmol/L (137-145); Total Bilirubin 0.4 mg/dL (0.2-1.3); Total Protein 6.8 g/dL (6.3-8.2)
[2023-07-26] MEDS: ACETAMINOPHEN TAB 325 MG TAB PO PRN (22:28)
[2023-07-26] MEDS: LACTATED RINGERS 500 ML IV SCH ×2 (22:29→22:30)
[2023-07-27 01:18] VITALS: BP 109/73; PULSE 78; RESP 15; TEMP 97.9
[2023-07-27] MEDS: LACTATED RINGERS 1,000 ML IV SCH ×2 (01:40→04:17)
[2023-07-27] MEDS: ACETAMINOPHEN TAB 325 MG TAB PO PRN (04:16)
--- NOTE | 2023-07-27 06:28 | P.HPOB ---
History of Present Illness H&P Date: 07/27/23 Chief Complaint: Left flank pain This patient is a pleasant 28-year-old 5 para 3 female estimated date of confinement 12/02/2023 estimated gestational age 21-5/7 weeks who presents to labor and delivery with complaints of sudden onset of left-sided flank pain. Patient is known history of bilateral kidney stones. Patient most recently had an ultrasound done on the of last month that showed a 0.5 cm kidney stone on the left and right side. Patient's been having intermittent pain became much worse yesterday around noon. is otherwise been uncomplicated. She has seen maternal medicine for previous history of a baby with a heart defect however all imaging so far has been negative. Review of Systems Constitutional: Reports as per HPI Genitourinary: Reports Menstruation: Reports amenorrhea Past Medical History Past Medical History: Thyroid Disorder Additional Past Medical History / Comment(s): History of preeclampsia with first ; multiple ear surgeries; kidney stones History of Any Multi-Drug Resistant Organisms: None Reported Past Surgical History: Section, Ear Surgery, Tonsillectomy Additional Past Surgical History / Comment(s): ear surgery x 11 on missy. ears for tubes & polyps, kidney stones. wisdom teeth Past Anesthesia/Blood Transfusion Reactions: No Reported Reaction Past Psychological History: No Psychological Hx Reported Smoking Status: Never smoker Past Alcohol Use History: None Reported Past Drug Use History: None Reported - Past Family History Father Family Medical History: Hypertension Mother Family Medical History: No Reported History Medications and Allergies Home Medications Medication Instructions Recorded Confirmed Type Pnv No.95/Ferrous Fum/Folic AC 1 each PO DAILY 01/13/22 07/26/23 History [ Multivitamin Tablet] Thyroid,Pork [Well Logging Operator Mud Analysis Thyroid] 15 mg PO DAILY 01/13/22 07/26/23 History Allergies Allergy/AdvReac Type Severity Reaction Status Date / Time azithromycin [From Zithromax] Allergy Rash/Hives Verified 07/26/23 19:53 Exam Vital Signs Temp Pulse Resp BP Pulse Ox 07/27/23 00:30 97.9 F 78 15 109/73 98 07/26/23 21:25 97.6 F 99 16 147/94 97 07/26/23 21:24 97.6 F 95 16 161/92 96 Intake and Output 07/26/23 07/26/23 07/27/23 14:59 22:59 06:59 Output Total 600 Balance -600 Output: Urine 600 Other: Voiding Method Toilet # Voids 3 5 Weight 83.007 kg Results Result Diagrams: 07/26/23 20:49 07/26/23 20:49 Abnormal Lab Results - Last 24 Hours (Table) 07/26/23 07/26/23 07/26/23 Range/Units 19:50 20:49 20:49 WBC 12.1 H (3.8-10.6) k/uL Neutrophils # 8.3 H (1.3-7.7) k/uL Sodium 136 L (137-145) mmol/L Carbon Dioxide 20 L (22-30) mmol/L Creatinine 0.36 L (0.52-1.04) mg/dL Urine Blood Moderate H (Negative) Urine RBC 26 H (0-5) /hpf Amorphous Sediment Rare H (None) /hpf Urine Bacteria Rare H (None) /hpf Urine Mucus Rare H (None) /hpf Assessment and Plan Assessment: This is a pleasant 28-year-old 5 para 3 female 21 on 5/7 weeks gestation admitted to labor and delivery with left sided pain and known renal calculi. Patient's pain is severe enough that plan is to admit the patient for IV fluids, IV pain control and anti-emetics. (1) 22 weeks gestation of Current Visit: Yes Status: Acute Code(s): Z3A.22 - 22 WEEKS GESTATION OF SNOMED Code(s): 42802203 (2) Acute back pain Current Visit: No Status: Acute Code(s): M54.9 - DORSALGIA, UNSPECIFIED SNOMED Code(s): 622489154 (3) Renal calculus, left Current Visit: No Status: Acute Code(s): N20.0 - CALCULUS OF KIDNEY SNOMED Code(s): 49567653
--- NOTE | 2023-07-27 06:28 | P.PN ---
Progress Note - Text Progress Note Date: 07/27/23 Patient is resting overnight and her pain is markedly improved. She is on received 2 doses of IV pain medications. Patient's felt be stable for discharge home morning she has an appointment with urology at 2:30 this afternoon.
--- NOTE | 2023-07-27 06:32 | P.DS ---
Providers Date of admission: 07/26/23 21:24 Expected date of discharge: 07/27/23 Attending physician: Vahe Fagan Primary care physician: Stated None - Discharge Diagnosis(es) (1) 22 weeks gestation of Current Visit: Yes Status: Acute (2) Acute back pain Current Visit: No Status: Acute (3) Renal calculus, left Current Visit: No Status: Acute Hospital Course: Please see dictated H&P and patient's admission. Brief summary this pleasant 28-year-old 5 para 3 female 21 5/7 weeks gestation admitted with left flank pain and known renal calculi. Patient is admitted and given IV hydration and IV pain medications. She rested overnight is felt to be stable for discharge home follow up with her urologist today at 2:30. Patient Condition at Discharge: Good Plan - Discharge Summary New Discharge Prescriptions: No Action Thyroid,Pork [Bakery Machine Mechanic Thyroid] 15 mg PO DAILY Pnv No.95/Ferrous Fum/Folic AC [ Multivitamin Tablet] 1 each PO DAILY Discharge Medication List Pnv No.95/Ferrous Fum/Folic AC [ Multivitamin Tablet] 1 each PO DAILY 01/13/22 [History] Thyroid,Pork [Bakery Machine Mechanic Thyroid] 15 mg PO DAILY 01/13/22 [History] Follow up Appointment(s)/Referral(s): Vahe Fagan MD [STAFF PHYSICIAN] - As Needed Joseph Rider MD [STAFF PHYSICIAN] - 07/27/23 2:30 pm Patient Instructions/Handouts: Kidney Stones (DC) Discharge Disposition: HOME SELF-CARE
--- NOTE | 2023-07-27 06:33 | P.MSEPDOC ---
Presenting Problems - Arrival Data Date of Arrival on Unit: 07/26/23 Time of Arrival on Unit: 19:30 Mode of Transport: Ambulatory - Complaint OB-Reason for Admission/Chief Complaint: Pain Comment: Patient arrived stating she is having left side pain, nausea and lower. abdominal pain that started at 1200 today. Patient states that she has had kidney. stones with this and was admitted over night on FBP. Patient states that she. has an appt. with [facility] tomorrow and this pain feel like a kidney stone. Patient denies sexual activity in the past 24 hours or leaking of fluid. Medical History - Information : 5 Para: 3 Term: 3 : 0 Abortions: Spontaneous or Elective: 1 Number of Living Children: 3 - Gestational Age Gestational Age by CHATO (wks/days): 21 Weeks and 4 Days - History Comment: Patient arrived stating she is having left side pain, nausea and lower. abdominal pain that started at 1200 today. Patient states that she has had kidney. stones with this and was admitted over night on FBP. Patient states that she. has an appt. with [facility] tomorrow and this pain feel like a kidney stone. Patient denies sexual activity in the past 24 hours or leaking of fluid. Review of Systems - Review of Systems Constitutional: No problems Breast: No problems ENT: No problems Cardiovascular: No problems Respiratory: No problems Gastrointestinal: No problems Genitourinary: Urgency, Increased frequency Musculoskeletal: No problems Neurological: No problems Skin: No problems Vital Signs - Temperature Temperature: 97.9 F Temperature Source: Oral - Pulse Pulse Oximetery Pulse Rate: 78 Pulse Assessment Method: Pulse Oximetry - Respirations Respiratory Rate: 15 Oxygen Delivery Method: Room Air O2 Sat by Pulse Oximetry: 98 - Blood Pressure Right Arm Blood Pressure: 109/73 Blood Pressure Mean: 85 Blood Pressure Source: Automatic Cuff Medical Screen Scoring - Assessment - Baby A Baseline FHR: 140 Physician Notification - Physician Notified Physician Notified Date: 07/26/23 Physician Notified Time: 20:45 Physician: Vahe Fagan New Order Received: Yes - Notification Comment Comment: RN spoke with Dr. Fagan regarding patients complaint and recieved orders for. LR 500, 5mg of nubaine IV. CBC, CMP and urine C&S. 07/26/23 @ 2110RN spoke with Dr. Fagan regarding patient requesting zofran for nausea. Dr. Fagan will admit patient an put order in for zofran for patient. Dr. Fagan stated he will be in early 07/27/23 to see patient. Maternal Triage Index - Urgent/Priority 2 Urgent Priority 2: Yes Provider Notified: Vahe Fagan Provider Notified Time: 20:42 Criteria Met for Priority 2: RN spoke with Dr. Fagan regarding patients complaint and recieved orders for. LR 500, 5mg of nubaine IV. CBC, CMP and urine C&S. Disposition - Disposition OB Disposition: Admit I agree with the RN Medical Screening Exam: Yes Case reviewed; plan agreed upon as documented in EMR&OBIX.: Yes Diagnosis: RELATED CONDITIONS, UNSPECIFIED, SECOND TRIMESTER
== END 2023-07-27 07:25 | disposition home or self-care (01) ==
LOC: FBPOP 19:30 → OBSVTOIN 21:24 → INTOOBSV 21:24 → 4FBP 21:24 → UNDODISOB 07-27 07:25 → UNDODISIN 07-27 07:25
PROVIDERS: ADMIT Obstetrics & Gynecology; ATTEND Obstetrics & Gynecology
DX: O26.832 Pregnancy related renal disease, second trimester (principal); N20.0 Calculus of kidney; Z3A.22 22 weeks gestation of pregnancy; Z79.890 Hormone replacement therapy; Z88.1 Allergy status to other antibiotic agents
CPT/HCPCS: 96376; 99214; 96361 ×2; 96374; 96375; 36415; 80053; 85025; 81001; G0378 ×2; J2300 ×2; J2405; 96360

== ENCOUNTER 2023-07-28 11:42 | Observation (INO) | payer OTHER ==
[2023-07-28 12:16] LABS: Appearance,Urine Clear (Clear); Bilirubin,Urine Negative (Negative); Blood,Urine Negative (Negative); Color,Urine Colorless; Glucose,Urine (UA) Negative (Negative); Ketones,Urine Trace (Negative); Leukocyte Esterase,Urine Negative (Negative); Nitrite,Urine Negative (Negative); PH, Urine 6.5 (5.0-8.0); Protein,Urine Negative (Negative); Specific Gravity,Urine 1.008 (1.001-1.035); Urobilinogen,Urine <2.0 mg/dL (<2.0)
--- NOTE | 2023-07-28 12:41 | P.HPOB ---
History of Present Illness H&P Date: 07/28/23 Chief Complaint: Flank pain, known kidney stones This patient is a pleasant 28-year-old 5 para 3 female estimated date of confinement 12/02/2023 estimated gestational age 21-6/7 weeks who presents to labor and delivery for lower back pain secondary to known kidney stones. Patient was admitted recently for similar findings. Patient did see Dr. Rider in the office and she states that currently they're just watching the kidney stones. Pain became worse today and she repeat presents for evaluation. has otherwise been uncomplicated. Review of Systems Constitutional: Reports as per HPI Past Medical History Past Medical History: Thyroid Disorder Additional Past Medical History / Comment(s): History of preeclampsia with first ; multiple ear surgeries; kidney stones History of Any Multi-Drug Resistant Organisms: None Reported Past Surgical History: Section, Ear Surgery, Tonsillectomy Additional Past Surgical History / Comment(s): ear surgery x 11 on missy. ears for tubes & polyps, kidney stones. wisdom teeth Past Anesthesia/Blood Transfusion Reactions: No Reported Reaction Past Psychological History: No Psychological Hx Reported Smoking Status: Never smoker Past Alcohol Use History: None Reported Past Drug Use History: None Reported - Past Family History Father Family Medical History: Hypertension Mother Family Medical History: No Reported History Medications and Allergies Home Medications Medication Instructions Recorded Confirmed Type Pnv No.95/Ferrous Fum/Folic AC 1 each PO DAILY 01/13/22 07/28/23 History [ Multivitamin Tablet] Thyroid,Pork [Bi Application Developer Thyroid] 15 mg PO DAILY 01/13/22 07/28/23 History Allergies Allergy/AdvReac Type Severity Reaction Status Date / Time azithromycin [From Zithromax] Allergy Rash/Hives Verified 07/28/23 11:58 Exam Intake and Output 07/27/23 07/28/23 07/28/23 22:59 06:59 14:59 Other: Weight 63.049 kg Results Abnormal Lab Results - Last 24 Hours (Table) 07/28/23 Range/Units 12:00 Urine Ketones Trace H (Negative) Assessment and Plan Assessment: This is a 28-year-old 5 para 3 female 21-6/7 weeks gestation with recurrent flank pain and known kidney stones followed by urology. Plan is admission for pain control, IV hydration, and we'll strain her urine. Patient is recently saw urology as requested to see them on this admission. (1) 22 weeks gestation of Current Visit: No Status: Acute Code(s): Z3A.22 - 22 WEEKS GESTATION OF SNOMED Code(s): 70833954 (2) Acute back pain Current Visit: No Status: Acute Code(s): M54.9 - DORSALGIA, UNSPECIFIED SNOMED Code(s): 050128961 (3) Renal calculus, left Current Visit: No Status: Acute Code(s): N20.0 - CALCULUS OF KIDNEY SNOMED Code(s): 60442271
[2023-07-28 12:59] VITALS: RESP 16
[2023-07-28] MEDS: LACTATED RINGERS 1,000 ML IV SCH ×3 (13:19→23:06)
[2023-07-28] MEDS: NALBUPHINE 10 MG/ML (10 ML MDV) IV PRN ×3 (13:21→23:07)
[2023-07-28] MEDS: ONDANSETRON 4 MG/2 ML VIAL IVP PRN ×2 (13:22→19:02)
--- NOTE | 2023-07-28 14:39 | P.MSEPDOC ---
Presenting Problems - Arrival Data Date of Arrival on Unit: 07/28/23 Time of Arrival on Unit: 11:42 Mode of Transport: Ambulatory - Complaint OB-Reason for Admission/Chief Complaint: Acute Nausea/Vomiting, Pain, Signs/Symptoms UTI Comment: known kidney stone, pain and nausea Medical History - Information : 5 Para: 3 Term: 3 : 0 Abortions: Spontaneous or Elective: 1 Number of Living Children: 3 - Gestational Age Gestational Age by CHATO (wks/days): 21 Weeks and 6 Days - History Complications: Other Comment: kidney stones Review of Systems - Review of Systems Constitutional: No problems Breast: No problems ENT: No problems Cardiovascular: No problems Respiratory: No problems Gastrointestinal: No problems Genitourinary: Dysuria Musculoskeletal: No problems Neurological: No problems Skin: No problems Vital Signs - Temperature Temperature: 97.9 F Temperature Source: Temporal Artery Scan - Pulse Right Sitting Pulse Rate: 85 Pulse Assessment Method: Automatic Cuff - Respirations Respiratory Rate: 16 Oxygen Delivery Method: Room Air - Blood Pressure Right Arm Sitting Blood Pressure: 140/83 Blood Pressure Mean: 102 Blood Pressure Source: Automatic Cuff Medical Screen Scoring - Uterine Contractions Frequency From (mins): 0 Frequency To (mins): 0 Duration From (seconds): 0 Duration To (seconds): 0 - Assessment - Baby A Baseline FHR: 140 Heart Rate - NICHD Category: Category I (Normal) Physician Notification - Physician Notified Physician Notified Date: 07/28/23 Physician Notified Time: 12:45 Physician: Vahe Fagan - Notification Comment Comment: Dr. Fagan at bedside orders OBV for fluids and pain control and urine straining Maternal Triage Index - Maternal Triage Index Presenting for scheduled procedure w/no complaint: No - Stat/Priority 1 Stat Priority 1: No - Urgent/Priority 2 Urgent Priority 2: Yes Provider Notified: Vahe Fagan Provider Notified Time: 12:45 Criteria Met for Priority 2: <34 weeks, severe pain and nausea, kidney stones Disposition - Disposition OB Disposition: Admit I agree with the RN Medical Screening Exam: Yes Case reviewed; plan agreed upon as documented in EMR&OBIX.: Yes Diagnosis: RELATED CONDITIONS, UNSPECIFIED, SECOND TRIMESTER
--- NOTE | 2023-07-28 17:49 | P.GSCN ---
History of Present Illness Consult date: 07/28/23 History of present illness: Pleasant 28-year-old female known to me for kidney stones. She is 22 weeks for her fourth child. He has a history of stones and saw several years ago for these stones. During the last few weeks she has had problems with recurrent left-sided colic. He has passed one tiny stone. She was seen in the office yesterday with colic. The pain has moved distal based on history. The pain is on the left side. She came to the hospital today because of worsening of her pain. I was asked to see her. Upon interview this afternoon she is feeling much better. She has an IV going on 150 mL per hour. The stone based on her symptoms is moved quite distal. She has no pain on the right side. Her urine is clear. Review of Systems All systems: negative - Constitutional Denies fever, Denies weight loss - EENT Eyes: denies blurred vision Ears, nose, mouth and throat: Denies dysphagia - Cardiovascular Denies chest pain, Denies shortness of breath - Respiratory Denies cough, Denies 7 - Gastrointestinal Reports as per HPI - Genitourinary Genitourinary: Denies dysuria, Denies hematuria - Integumentary Denies rash, Denies unusual bruising - Neurological Denies headaches, Denies syncope - Hematologic/Lymphatic Denies easy bleeding, Denies easy bruising Past Medical History Past Medical History: Thyroid Disorder Additional Past Medical History / Comment(s): History of preeclampsia with first ; multiple ear surgeries; kidney stones History of Any Multi-Drug Resistant Organisms: None Reported Past Surgical History: Section, Ear Surgery, Tonsillectomy Additional Past Surgical History / Comment(s): ear surgery x 11 on missy. ears for tubes & polyps, kidney stones. wisdom teeth Past Anesthesia/Blood Transfusion Reactions: No Reported Reaction Past Psychological History: No Psychological Hx Reported Smoking Status: Never smoker Past Alcohol Use History: None Reported Past Drug Use History: None Reported - Past Family History Father Family Medical History: Hypertension Mother Family Medical History: Thyroid Disorder Medications and Allergies Home Medications Medication Instructions Recorded Confirmed Type Pnv No.95/Ferrous Fum/Folic AC 1 each PO DAILY 01/13/22 07/28/23 History [ Multivitamin Tablet] Thyroid,Pork [Chief Deputy Court Clerk Thyroid] 15 mg PO DAILY 01/13/22 07/28/23 History Allergies Allergy/AdvReac Type Severity Reaction Status Date / Time azithromycin [From Zithromax] Allergy Rash/Hives Verified 07/28/23 11:58 Surgical - Exam Vital Signs Temp Pulse Resp BP Pulse Ox 97.9 F 85 16 147/86 97 07/28/23 11:58 07/28/23 11:58 07/28/23 11:58 07/28/23 11:58 07/28/23 11:58 - General well developed, well nourished, no distress - Eyes normal ocular movement, no icteric - ENT no hearing loss, no congestion - Neck no masses, trachea midline - Respiratory normal respiratory effort, clear to auscultation - Abdomen Abdomen: soft, non tender, no guarding, no rigid, no rebound - Genitourinary 22 weeks mild left lower quadrant pain - Integumentary no rash, no abnormal pigmentation - Neurologic no disoriented, no combative - Psychiatric oriented to time, oriented to person, oriented to place, speech is normal, memory intact Results - Labs Abnormal Lab Results - Last 24 Hours (Table) 07/28/23 Range/Units 12:00 Urine Ketones Trace H (Negative) Assessment and Plan Assessment: Impression/plan: This patient appears to have a left ureteral calculus stone her symptoms and history of small stone disease. Urine is not infected although she has symptoms of a urine infection. this would be consistent with a stone in the very left distal ureter. At present she is feeling well. He has no pain in the right side This juncture she most likely will pass the stone and intervention will probably not be required. The urologic standpoint she can be discharged and as long as her pain is under control nothing further need to be done. My indication to intervene be persistent pain or signs of infection such as fever and chills.
[2023-07-29] MEDS: ONDANSETRON 4 MG/2 ML VIAL IVP PRN (00:53)
[2023-07-29] MEDS: ACETAMINOPHEN TAB 325 MG TAB PO PRN ×2 (00:53→07:25)
[2023-07-29] MEDS: NALBUPHINE 10 MG/ML (10 ML MDV) IV PRN (03:31)
--- NOTE | 2023-07-29 06:44 | P.PN ---
Progress Note - Text Progress Note Date: 07/29/23 She is resting overnight. She is now 22 weeks . She states that she may have passed some debris or gravel last evening. She was seen by Dr. Hernandez from urology. Plan is to continue to expected management. Patient wishes to be discharged home today on oral pain medications. Any give her some Tylenol and also a few oxycodone to hopefully fahad acute episodes at home to prevent admission.
--- NOTE | 2023-07-29 06:50 | P.DS ---
Providers Date of admission: 07/28/23 12:25 Expected date of discharge: 07/29/23 Attending physician: Vahe Fagan Consults: 07/28/23 12:36 Consult Physician Urgent Consulting Provider: Joseph Rider Consult Reason/Comments: Established patient, bilateral kidney stones Do you want consulting provider notified?: Yes Placement Type Exists?: Yes Primary care physician: Stated None - Discharge Diagnosis(es) (1) 22 weeks gestation of Current Visit: No Status: Acute (2) Acute back pain Current Visit: No Status: Acute (3) Renal calculus, left Current Visit: No Status: Acute Hospital Course: Please see dictated H&P for intimate details of this patient's admission. In brief summary is a pleasant 28-year-old multigravida patient 22 weeks gestation with known bilateral kidney stones. Patient is readmitted for an acute episode of back pain. Patient is given IV hydration, seen by urology, given IV antibiotics and pain medications. She felt that she did pass some debris. Patient wishes to go home felt be stable for discharge home on oral pain medications. She'll follow up with me as scheduled. Patient Condition at Discharge: Good Plan - Discharge Summary New Discharge Prescriptions: New oxyCODONE HCL [Oxaydo] 5 mg PO Q6H PRN 3 Days #12 tab PRN Reason: Severe Pain (Scale 7 To 10) No Action Thyroid,Pork [Communications Programmer Thyroid] 15 mg PO DAILY Pnv No.95/Ferrous Fum/Folic AC [ Multivitamin Tablet] 1 each PO DAILY Discharge Medication List Pnv No.95/Ferrous Fum/Folic AC [ Multivitamin Tablet] 1 each PO DAILY 01/13/22 [History] Thyroid,Pork [Communications Programmer Thyroid] 15 mg PO DAILY 01/13/22 [History] oxyCODONE HCL [Oxaydo] 5 mg PO Q6H PRN 3 Days #12 tab 07/29/23 [Rx] Follow up Appointment(s)/Referral(s): Vahe Fagan MD [STAFF PHYSICIAN] - As Needed Patient Instructions/Handouts: Kidney Stones (DC) Discharge Disposition: HOME SELF-CARE
[2023-07-29 07:38] VITALS: BP 109/75; PULSE 79; TEMP 97.7
--- NOTE | 2023-07-29 07:38 | P.PN ---
Subjective Progress Note Date: 07/29/23 Patient is 22 weeks , in the hospital with ureteral colic on the left side. She has a history of stones. She clinically sounds as if she is passing a stone. She feels better this morning. Objective - Vital Signs Vital signs: Vital Signs Temp 97.7 F 07/29/23 07:00 Pulse 79 07/29/23 07:00 Resp 16 07/29/23 07:00 BP 109/75 07/29/23 07:00 Pulse Ox 97 07/29/23 07:00 FiO2 Intake & Output 07/28/23 07/29/23 07/29/23 18:59 06:59 18:59 Output Total 1400 2750 Balance -1400 -2750 Weight 63.049 kg Output: Urine 1400 2750 Other: # Voids 2 2 - Labs Labs: Abnormal Lab Results - Last 24 Hours (Table) 07/28/23 Range/Units 12:00 Urine Ketones Trace H (Negative) Assessment and Plan Assessment: Impression: Ureteral colic left in face of , 22 weeks. History of kidney stones. Recommendation: The patient is clinically stable. My inclination is that she will have intermittent discomfort until she delivers the baby in November. If further urologic assistance is required please feel free to contact us.
== END 2023-07-29 07:41 | disposition home or self-care (01) ==
LOC: FBPOP 11:42 → 4FBP 12:25
PROVIDERS: ADMIT Obstetrics & Gynecology; ATTEND Obstetrics & Gynecology
DX: O26.832 Pregnancy related renal disease, second trimester (principal); N20.2 Calculus of kidney with calculus of ureter; O99.282 Endocrine, nutritional and metabolic diseases complicating pregnancy, second trimester; E07.9 Disorder of thyroid, unspecified; Z3A.22 22 weeks gestation of pregnancy; Z79.890 Hormone replacement therapy; Z88.1 Allergy status to other antibiotic agents; Z87.442 Personal history of urinary calculi; Z87.59 Personal history of other complications of pregnancy, childbirth and the puerperium; Z98.891 History of uterine scar from previous surgery; Z98.890 Other specified postprocedural states; Z82.49 Family history of ischemic heart disease and other diseases of the circulatory system; Z83.49 Family history of other endocrine, nutritional and metabolic diseases
CPT/HCPCS: 96376 ×2; 99213; 96374; 96375; 81003; J2300 ×2; J2405 ×2

== ENCOUNTER 2023-08-31 09:44 | Observation (INO) | payer OTHER ==
[2023-08-31 11:59] LABS: Appearance,Urine Cloudy (Clear); Bacteria,Urine Rare /hpf; Bilirubin,Urine Negative (Negative); Blood,Urine Negative (Negative); Color,Urine Colorless; Glucose,Urine (UA) Negative (Negative); Ketones,Urine Negative (Negative); Leukocyte Esterase,Urine Negative (Negative); Mucus,Urine Rare /hpf; Nitrite,Urine Negative (Negative); Protein,Urine Negative (Negative); RBC,Urine <1 /hpf (0-5); Squamous Epithelial Cell,Urine 9 /hpf (0-4); Urobilinogen,Urine <2.0 mg/dL (<2.0); WBC,Urine 1 /hpf (0-5)
--- NOTE | 2023-08-31 12:45 | P.HPOB ---
History of Present Illness H&P Date: 08/31/23 Chief Complaint: Headache, hypertension, This patient is a pleasant 28-year-old 5 para 3 female estimated date of confinement 12/02/2023 estimated gestational age 26-5/7 weeks' who called me yesterday with complaints of headaches and some elevated blood pressures in the 140s over 90s at home. She was instructed to come to labor and delivery at that time however presented this morning. Initial blood pressures are elevated 150/90 however they subsequently have improved. Patient is however also is having some tachycardia. Patient's history is such that she has a history of gestational hypertension with her last and also history of preecla mpsia with her first . Patient was seen by maternal medicine and they recommended she go on 81 mg of aspirin a day however she declined. Patient has no history of hypertension outside of . is also been complicated by an admission to labor and delivery for kidney stones. Review of Systems Constitutional: Reports as per HPI, Reports chronic headaches Genitourinary: Reports Menstruation: Reports amenorrhea Past Medical History Past Medical History: Thyroid Disorder Additional Past Medical History / Comment(s): History of preeclampsia with first ; multiple ear surgeries; kidney stones History of Any Multi-Drug Resistant Organisms: None Reported Past Surgical History: Section, Ear Surgery, Tonsillectomy Additional Past Surgical History / Comment(s): ear surgery x 11 on missy. ears for tubes & polyps, kidney stones. wisdom teeth Past Anesthesia/Blood Transfusion Reactions: No Reported Reaction Smoking Status: Never smoker - Past Family History Father Family Medical History: Hypertension Mother Family Medical History: Thyroid Disorder Medications and Allergies Home Medications Medication Instructions Recorded Confirmed Type Pnv No.95/Ferrous Fum/Folic AC 1 each PO DAILY 01/13/22 08/31/23 History [ Multivitamin Tablet] Thyroid,Pork [Hand Packager Thyroid] 15 mg PO DAILY 01/13/22 08/31/23 History Allergies Allergy/AdvReac Type Severity Reaction Status Date / Time azithromycin [From Zithromax] Allergy Rash/Hives Verified 08/31/23 10:44 Exam Vital Signs Temp Pulse Resp BP Pulse Ox 08/31/23 10:44 98 F 137 H 16 152/89 100 Intake and Output 08/30/23 08/31/23 08/31/23 22:59 06:59 14:59 Other: Weight 87.997 kg - OBG Physical Exam Abdomen: bowel sounds normal, no diffuse tenderness, no bruit present, no guarding noted, no hepatomegaly, no splenomegaly, no mass Results labs show she is B+, rubella immune, RPR is nonreactive, hepatitis B and C are negative, HIV is nonreactive, Glucola was abnormal with a normal three-hour gtt., thyroid test done yesterday were normal, level III ultrasound cardiac echo was normal. Abnormal Lab Results - Last 24 Hours (Table) 08/31/23 Range/Units 10:30 Urine Appearance Cloudy H (Clear) Ur Squamous Epith Cells 9 H (0-4) /hpf Urine Bacteria Rare H (None) /hpf Urine Mucus Rare H (None) /hpf Assessment and Plan Assessment: This is a pleasant 28-year-old 5 para 3 female 26-5/7 weeks' gestation with gestational hypertension and also some sinus tachycardia. Plan is admission for preeclampsia labs, serial blood pressures, intermittent monitoring, I'm also going to get a cardiology consultation to evaluate the tachycardia. Plan is to hold off on treatment of her hypertension was she meets severe criteria, however we will consider labetalol for the tachycardia was persistent. I discussed this treatment plan with the patient and she understands. I also have a follow-up appointment with her with maternal medicine next Tuesday. (1) 26 weeks gestation of Current Visit: No Status: Acute Code(s): Z3A.26 - 26 WEEKS GESTATION OF SNOMED Code(s): 11782189 (2) Gestational hypertension Current Visit: No Status: Acute Code(s): O13.9 - GESTATIONAL HTN W/O SIGNIFICANT PROTEINURIA, UNSP TRIMESTER SNOMED Code(s): 53807602 (3) Tachycardia Current Visit: Yes Status: Acute Code(s): R00.0 - TACHYCARDIA, UNSPECIFIED SNOMED Code(s): 3377960
[2023-08-31] MEDS: ACETAMINOPHEN TAB 325 MG TAB PO PRN ×2 (12:59→20:04)
[2023-08-31 13:26] LABS: Basophils % (A) 0 %; Eosinophils # (A) 0.1 k/uL (0-0.7); Eosinophils % (A) 1 %; HCT 42.7 % (34.0-46.0); HGB 14.6 gm/dL (11.4-16.0); Lymphocytes # (A) 2.4 k/uL (1.0-4.8); Lymphocytes % (A) 16 %; MCH 31.1 pg (25.0-35.0); MCHC 34.1 g/dL (31.0-37.0); MCV 91.2 fL (80.0-100.0); Mean Platelet Volume 9.7; Monocytes # (A) 0.5 k/uL (0-1.0); Monocytes % (A) 3 %; Neutrophils % (A) 79 %; Platelet Count 211 k/uL (150-450); RBC 4.69 m/uL (3.80-5.40); RDW 13.5 % (11.5-15.5); WBC 15.3 k/uL (3.8-10.6)
[2023-08-31 13:50] LABS: ALT 12 U/L (4-34); AST 14 U/L (14-36); African American GFR (CKD) >90 (>60 ml/min/1.73 sqM); Blood Urea Nitrogen 7 mg/dL (7-17); LDH 155 U/L (120-246); Non-African American GFR(CKD) >90 (>60 ml/min/1.73 sqM); Uric Acid 4.3 mg/dL (3.7-7.4)
--- NOTE | 2023-08-31 13:50 | P.CRDCN ---
History of Present Illness History of present illness: HISTORY OF PRESENT ILLNESS: This is a 28-year-old female with a past medical history significant for kidney stones and preclampsia. Patient does not follow with a dry cell tester. We have been asked to see the patient in consultation for tachycardia and gestational hypertension. Patient examined at the bedside. The patient is currently 26 weeks . Patient was directed to come to the hospital by her OB secondary to elevated blood pressures. Blood pressure on arrival was 152/89. Patient was also tachycardic with a heart rate of 137. She reports on Tuesday she had two episodes where she felt her heart racing. She felt mildly short of breath at that time. She states since Tuesday, she has relaxed and not done anything overly strenuous. She does not feel any palpitations when she is at rest. She states she has been checking her blood pressure at home and it has been running 130s-140s over 90s. She currently denies any chest pain or pressure. Denies SOB. Her heart rate is controlled at the time of examination. REVIEW OF SYSTEMS: At the time of my exam: CONSTITUTIONAL: Denies fever or chills. HEENT: Denies blurred vision, vision changes, or eye pain. Denies hemoptysis CARDIOVASCULAR: Denies chest pain. Denies orthopnea. Denies PND. Denies palpitations RESPIRATORY: Denies shortness of breath. GASTROINTESTINAL: Denies abdominal pain. Denies nausea or vomiting. HEMATOLOGIC: Denies bleeding disorders. GENITOURINARY: Denies any blood in urine. SKIN: Denies pruitis. Denies rash. PHYSICAL EXAM: VITAL SIGNS: Reviewed. GENERAL: Well-developed in no acute distress. HEENT: Head is normocephalic. Pupils are equal, round. Sclerae anicteric. Mucous membranes of the mouth are moist. Neck supple. No JVD or thyromegaly LUNGS: Respirations even and unlabored. Lungs essentially clear to auscultation bilaterally. HEART: Regular rate and rhythm. S1 and S2 heard. Soft systolic murmur noted. ABDOMEN: Soft. Nontender. EXTREMITIES: Normal range of motion. No clubbing or cyanosis. Peripheral pu lses intact. No lower extremity edema NEUROLOGIC: Awake and alert. Oriented x 3. ASSESSMENT: 26 weeks gestation of Palpitations Tachycardia Gestational hypertension History of preclampsia History of hypothyroidism History of kidney stones PLAN: Obtain EKG Obtain 2-D echo to assess cardiac structure and function Check TSH, CBC, and BMP Begin Labetalol 200 mg twice a day Continue to monitor blood pressure and heart rate Further recommendations pending patient's course Nurse practitioner note has been reviewed by physician. Signing provider agrees with the documented findings, assessment, and plan of care. Past Medical History Past Medical History: Thyroid Disorder Additional Past Medical History / Comment(s): History of preeclampsia with first ; multiple ear surgeries; kidney stones History of Any Multi-Drug Resistant Organisms: None Reported Past Surgical History: Section, Ear Surgery, Tonsillectomy Additional Past Surgical History / Comment(s): ear surgery x 11 on missy. ears for tubes & polyps, kidney stones. wisdom teeth Past Anesthesia/Blood Transfusion Reactions: No Reported Reaction Smoking Status: Never smoker - Past Family History Father Family Medical History: Hypertension Mother Family Medical History: Thyroid Disorder Medications and Allergies Home Medications Medication Instructions Recorded Confirmed Type Pnv No.95/Ferrous Fum/Folic AC 1 each PO DAILY 01/13/22 08/31/23 History [ Multivitamin Tablet] Thyroid,Pork [Appliquer Zigzag Thyroid] 15 mg PO DAILY 01/13/22 08/31/23 History Allergies Allergy/AdvReac Type Severity Reaction Status Date / Time azithromycin [From Zithromax] Allergy Rash/Hives Verified 08/31/23 10:44 Physical Exam Vitals: Vital Signs Temp Pulse Resp BP Pulse Ox 08/31/23 10:44 98 F 137 H 16 152/89 100 Intake and Output 08/30/23 08/31/23 08/31/23 22:59 06:59 14:59 Other: Weight 87.997 kg Results 08/31/23 13:11 Current Medications Generic Name Dose Route Start Last Admin Trade Name Freq PRN Reason Stop Dose Admin Acetaminophen 650 mg 08/31/23 12:47 08/31/23 12:59 Acetaminophen Tab 325 Mg Tab PO 650 mg Q4HR PRN Administration Headache Intake and Output 08/30/23 08/31/23 08/31/23 22:59 06:59 14:59 Other: Weight 87.997 kg Patient Weight 09/01/23 06:59 Weight 87.997 kg
[2023-08-31] MEDS: LABETALOL 200 MG TAB PO SCH ×2 (14:10→20:04)
[2023-08-31 14:54] LABS: African American GFR (CKD) >90 (>60 ml/min/1.73 sqM); Anion Gap 8 mmol/L; Blood Urea Nitrogen 7 mg/dL (7-17); Calcium 10.4 mg/dL (8.4-10.2); Carbon Dioxide 23 mmol/L (22-30); Chloride 104 mmol/L (98-107); Glucose 71 mg/dL (74-99); Non-African American GFR(CKD) >90 (>60 ml/min/1.73 sqM); Potassium 4.2 mmol/L (3.5-5.1); Sodium 135 mmol/L (137-145)
[2023-08-31 15:32] LABS: Creatinine,Urine Random 65.7 mg/dL; Protein/Creatinine Ratio,Urine 0.137
[2023-09-01] MEDS: ACETAMINOPHEN TAB 325 MG TAB PO PRN ×2 (01:28→07:47)
--- NOTE | 2023-09-01 06:48 | P.PN ---
Progress Note - Text Progress Note Date: 09/01/23 Hospital day #2. Patient is 26-6/7 weeks gestation. Preeclampsia labs were negative. Patient was seen by cardiology and placed on labetalol 200 mg by mouth twice a day. Blood pressures are now good. She is no longer having significant tachycardia. EKG showed sinus tachycardia and cardiac echo is pending. At this time patient appears stable and now has improvement of her hypertension and other symptomatology. If her cardiac echo was clear then she'll be to go home follow up with maternal medicine next week and me in 2 weeks.
--- NOTE | 2023-09-01 06:48 | P.MSEPDOC ---
Presenting Problems - Arrival Data Date of Arrival on Unit: 08/31/23 Time of Arrival on Unit: 09:44 Mode of Transport: Ambulatory - Complaint OB-Reason for Admission/Chief Complaint: PIH Medical History - Information : 5 Para: 3 Term: 3 : 0 Abortions: Spontaneous or Elective: 1 Number of Living Children: 3 - Gestational Age Gestational Age by CHATO (wks/days): 26 Weeks and 5 Days - History Complications: Prior Comment: kidney stones Review of Systems - Review of Systems Constitutional: No problems Breast: No problems ENT: No problems Cardiovascular: No problems Respiratory: No problems Gastrointestinal: No problems Genitourinary: No problems Musculoskeletal: No problems Neurological: No problems Skin: No problems Comment: pt states has been experiencing tachycardia with pregancy accompanied by shortness of breath and dizziess which resolves after a few hours of rest Vital Signs - Temperature Temperature: 97.9 F Temperature Source: Temporal Artery Scan - Pulse Right Pulse Rate: 80 Pulse Assessment Method: Pulse Oximetry - Respirations Respiratory Rate: 17 Oxygen Delivery Method: Room Air O2 Sat by Pulse Oximetry: 97 - Blood Pressure Right Arm Blood Pressure: 113/64 Blood Pressure Mean: 80 Blood Pressure Source: Automatic Cuff Medical Screen Scoring - Assessment - Baby A Baseline FHR: 140 Physician Notification - Physician Notified Physician Notified Date: 08/31/23 Physician Notified Time: 10:20 Physician: Vahe Fagan New Order Received: Yes Maternal Triage Index - Stat/Priority 1 Stat Priority 1: No - Urgent/Priority 2 Urgent Priority 2: Yes Provider Notified: Vahe Fagan Provider Notified Time: 10:20 Criteria Met for Priority 2: 26.5 blood pressure 152/89 Disposition - Disposition OB Disposition: Triage I agree with the RN Medical Screening Exam: Yes Case reviewed; plan agreed upon as documented in EMR&OBIX.: Yes Diagnosis: RELATED CONDITIONS, UNSPECIFIED, SECOND TRIMESTER
--- NOTE | 2023-09-01 06:54 | P.DS ---
Providers Date of admission: 08/31/23 12:21 Expected date of discharge: 09/01/23 Attending physician: Vahe Fagan Consults: 08/31/23 12:47 Consult Physician Urgent Consulting Provider: Ag Madison Consult Reason/Comments: Tachycardia, gestational hypertension Do you want consulting provider notified?: Yes Primary care physician: Stated None - Discharge Diagnosis(es) (1) 26 weeks gestation of Current Visit: No Status: Acute (2) Gestational hypertension Current Visit: No Status: Acute (3) Tachycardia Current Visit: Yes Status: Acute Hospital Course: Please see dictated H&P on this patient's admission. Brief summary a pleasant 28-year-old 5 para 3 female 26-5/7 weeks gestation admitted with hypertension and sinus tachycardia. Patient's preeclampsia evaluation was negative and I counseled sitting cardiology. Patient is placed on labetalol 200 mg by mouth twice a day and had marked improvement of her symptoms. Will be tommy ared for discharge after her cardiac echo to follow up with myself in 2 weeks internal medicine in 1 week. I did give her parameters to call me and concerns. Patient Condition at Discharge: Good Plan - Discharge Summary New Discharge Prescriptions: New Labetalol [Trandate] 200 mg PO BID #60 tab No Action Thyroid,Pork [Relays Draftsperson Thyroid] 15 mg PO DAILY Pnv No.95/Ferrous Fum/Folic AC [ Multivitamin Tablet] 1 each PO DAILY Discharge Medication List Pnv No.95/Ferrous Fum/Folic AC [ Multivitamin Tablet] 1 each PO DAILY 01/13/22 [History] Thyroid,Pork [Relays Draftsperson Thyroid] 15 mg PO DAILY 01/13/22 [History] Labetalol [Trandate] 200 mg PO BID #60 tab 09/01/23 [Rx] Follow up Appointment(s)/Referral(s): Vahe Fagan MD [STAFF PHYSICIAN] - 2 Weeks (Please keep her scheduled appointment with myself in [address] Dubois on September 07 at 2:30 as scheduled (maternal medicine)) Patient Instructions/Handouts: Hypertension During (DC) Discharge Disposition: HOME SELF-CARE
[2023-09-01] MEDS: LABETALOL 200 MG TAB PO SCH (07:48)
[2023-09-01 07:57] VITALS: BP 125/76; PULSE 89; RESP 16; TEMP 97.1
--- NOTE | 2023-09-01 11:32 | CA ---
Transthoracic Echo Report Name: Tasha Denton Age: 28 Gender: F : 1995 Exam Date: 09/01/2023 08:34 Exam Location: [facility] Ht (in): 64 Wt (lb): 194 Ordering Physician: Jessica Vela Attending/Referring Phys: [id number], Mirian Artist Consultant Kamryn Shaver RDCS Procedure CPT: Indications: LV function, HTN Cardiac Hx: Technical Quality: Fair Contrast 1: Total Dose (mL): Contrast 2: Total Dose (mL): MEASUREMENTS (Male / Female) Normal Values 2D ECHO LV Diastolic Diameter PLAX 4.3 cm 4.2 - 5.9 / 3.9 - 5.3 cm LV Systolic Diameter PLAX 2.9 cm IVS Diastolic Thickness 1.2 cm 0.6 - 1.0 / 0.6 - 0.9 cm LVPW Diastolic Thickness 1.2 cm 0.6 - 1.0 / 0.6 - 0.9 cm LV Relative Wall Thickness 0.6 RV Internal Dim ED PLAX 2.8 cm LA Volume 28.2 cm??? 18 - 58 / 22 - 52 cm??? LA Volume Index 13.9 cm???/m??? 16 - 28 cm???/m??? M-MODE Aortic Root Diameter MM 2.7 cm LA Systolic Diameter MM 3.4 cm LA Ao Ratio MM 1.3 AV Cusp Separation MM 1.8 cm DOPPLER AV Peak Velocity 136.8 cm/s AV Peak Gradient 7.5 mmHg AV Mean Velocity 82.9 cm/s AV Mean Gradient 3.4 mmHg AV Velocity Time Integral 19.9 cm LVOT Peak Velocity 84.6 cm/s LVOT Peak Gradient 2.9 mmHg LVOT Velocity Time Integral 14.5 cm MV Area PHT 4.7 cm??? Mitral E Point Velocity 52.0 cm/s Mitral A Point Velocity 78.9 cm/s Mitral E to A Ratio 0.7 MV Deceleration Time 163.0 ms MV E' Velocity 13.4 cm/s Mitral E to MV E' Ratio 3.9 TR Peak Velocity 214.4 cm/s TR Peak Gradient 18.4 mmHg Right Ventricular Systolic Press 22.7 mmHg FINDINGS Left Ventricle Mildly increased left ventricular wall thickness. Normal left ventricular systolic function with no obvious regional wall motion abnormalities. Left ventricular cavity size normal. Normal left ventricular diastolic filling pattern. Left ventricular ejection fraction is estimated at 55-60 %. Right Ventricle Normal right ventricular size and function. Right ventricular systolic pressure within normal limits. Right Atrium Normal right atrial size. Left Atrium Normal left atrial size. Mitral Valve Structurally normal mitral valve. No mitral stenosis or prolapse. Trace mitral regurgitation. Aortic Valve Trileaflet aortic valve. No aortic valve stenosis or regurgitation. Tricuspid Valve Structurally normal tricuspid valve. Trace to mild tricuspid regurgitation. Pulmonic Valve Structurally normal pulmonic valve. Pericardium No pericardial effusion. Aorta Normal size aortic root and proximal ascending aorta. CONCLUSIONS 1. Normal left ventricle size and systolic function 2. Trace mitral with trace to mild tricuspid regurgitation and no evidence of pulmonary hypertension Previewed by: Dr. Ag Madison MD (Electronically Signed) Final Date: 01 September 2023 11:31
--- NOTE | 2023-09-01 11:35 | P.PN ---
Subjective HISTORY OF PRESENT ILLNESS: This is a 28-year-old female with a past medical history significant for kidney stones and preclampsia. Patient does not follow with a chair. We have been asked to see the patient in consultation for tachycardia and gestational hypertension. Patient examined at the bedside. The patient is currently 26 weeks . Patient was directed to come to the hospital by her OB secondary to el evated blood pressures. Blood pressure on arrival was 152/89. Patient was also tachycardic with a heart rate of 137. She reports on Tuesday she had two episodes where she felt her heart racing. She felt mildly short of breath at that time. She states since Tuesday, she has relaxed and not done anything overly strenuous. She does not feel any palpitations when she is at rest. She states she has bee n checking her blood pressure at home and it has been running 130s-140s over 90s. She currently denies any chest pain or pressure. Denies SOB. Her heart rate is controlled at the time of examination. 09/01/2023 Patient examined this morning at the bedside. Patient denies any chest pain or pressure. She denies any shortness of breath. Patient's blood pressure and heart rate have both improved. Blood pressure 125/76. Heart rate is in the 80s. Echocardiogram completed revealing normal left ventricular size and systolic function, trace mitral regurgitation, trace to mild tricuspid regurgitation, and no evidence of pulmonary hypertension PHYSICAL EXAM: VITAL SIGNS: Reviewed. GENERAL: Well-developed in no acute distress. HEENT: Head is normocephalic. Pupils are equal, round. Sclerae anicteric. Mucous membranes of the mouth are moist. Neck supple. No JVD or thyromegaly LUNGS: Respirations even and unlabored. Lungs essentially clear to auscultation bilaterally. HEART: Regular rate and rhythm. S1 and S2 heard. Soft systolic murmur noted. ABDOMEN: Soft. Nontender. EXTREMITIES: Normal range of motion. No clubbing or cyanosis. Peripheral pulses intact. No lower extremity edema NEUROLOGIC: Awake and alert. Oriented x 3. ASSESSMENT: 26 weeks gestation of Palpitations Tachycardia Gestational hypertension History of preclampsia History of hypothyroidism History of kidney stones PLAN: Continue labetalol 200 mg twice a day Patient is stable for discharge home today from a cardiac standpoint Patient encouraged to continue to monitor her blood pressure and follow-up with her [employer] Nurse practitioner note has been reviewed by physician. Signing provider agrees with the documented findings, assessment, and plan of care. Objective - Vital Signs Vital signs: Vital Signs Temp 97.1 F L 09/01/23 07:50 Pulse 89 09/01/23 07:50 Resp 16 09/01/23 07:50 BP 125/76 09/01/23 07:50 Pulse Ox 98 09/01/23 07:50 FiO2 Intake & Output 08/31/23 09/01/23 09/01/23 18:59 06:59 18:59 Weight 87.997 kg - Labs CBC & Chem 7: 08/31/23 13:11 08/31/23 13:11 Labs: Abnormal Lab Results - Last 24 Hours (Table) 08/31/23 08/31/23 08/31/23 Range/Units 10:30 13:00 13:11 WBC 15.3 H (3.8-10.6) k/uL Neutrophils # 12.0 H (1.3-7.7) k/uL Sodium 135 L (137-145) mmol/L Creatinine 0.50 L (0.52-1.04) mg/dL Glucose 71 L (74-99) mg/dL Calcium 10.4 H (8.4-10.2) mg/dL Urine Appearance Cloudy H (Clear) Ur Squamous Epith Cells 9 H (0-4) /hpf Urine Bacteria Rare H (None) /hpf Urine Mucus Rare H (None) /hpf 08/31/23 Range/Units 13:11 WBC (3.8-10.6) k/uL Neutrophils # (1.3-7.7) k/uL Sodium (137-145) mmol/L Creatinine 0.50 L (0.52-1.04) mg/dL Glucose (74-99) mg/dL Calcium (8.4-10.2) mg/dL Urine Appearance (Clear) Ur Squamous Epith Cells (0-4) /hpf Urine Bacteria (None) /hpf Urine Mucus (None) /hpf
== END 2023-09-01 11:55 | disposition home or self-care (01) ==
LOC: FBPOP 09:44 → 4FBP 12:21
PROVIDERS: ADMIT Obstetrics & Gynecology; ATTEND Obstetrics & Gynecology
DX: O13.2 Gestational [pregnancy-induced] hypertension without significant proteinuria, second trimester (principal); O99.412 Diseases of the circulatory system complicating pregnancy, second trimester; I08.1 Rheumatic disorders of both mitral and tricuspid valves; R00.0 Tachycardia, unspecified; R00.2 Palpitations; O34.219 Maternal care for unspecified type scar from previous cesarean delivery; O99.282 Endocrine, nutritional and metabolic diseases complicating pregnancy, second trimester; E03.9 Hypothyroidism, unspecified; Z3A.26 26 weeks gestation of pregnancy; Z79.890 Hormone replacement therapy; Z87.442 Personal history of urinary calculi; Z87.59 Personal history of other complications of pregnancy, childbirth and the puerperium; Z98.890 Other specified postprocedural states; Z82.49 Family history of ischemic heart disease and other diseases of the circulatory system; Z83.49 Family history of other endocrine, nutritional and metabolic diseases
CPT/HCPCS: 99215; 93306; 93005; 82570; 80048; 84443; 84156; 82565; 83615; 84450; 84460; 84520; 84550; 85025; 81001; G0378

== ENCOUNTER 2023-09-04 11:19 | Outpatient (CLI) | payer OTHER ==
[2023-09-04 12:09] VITALS: PULSE 123; RESP 18
[2023-09-04 12:23] LABS: Creatinine,Urine Random 50.7 mg/dL; Protein/Creatinine Ratio,Urine 0.197
[2023-09-04 12:29] LABS: Appearance,Urine Clear (Clear); Bilirubin,Urine Negative (Negative); Blood,Urine Negative (Negative); Color,Urine Colorless; Glucose,Urine (UA) Negative (Negative); Ketones,Urine Negative (Negative); Leukocyte Esterase,Urine Negative (Negative); Nitrite,Urine Negative (Negative); PH, Urine 6.5 (5.0-8.0); Protein,Urine Negative (Negative); Specific Gravity,Urine 1.009 (1.001-1.035); Urobilinogen,Urine <2.0 mg/dL (<2.0)
[2023-09-04 13:27] LABS: Basophils % (A) 0 %; Eosinophils # (A) 0.2 k/uL (0-0.7); Eosinophils % (A) 1 %; HCT 39.8 % (34.0-46.0); HGB 13.5 gm/dL (11.4-16.0); Lymphocytes # (A) 2.3 k/uL (1.0-4.8); Lymphocytes % (A) 17 %; MCH 30.8 pg (25.0-35.0); MCHC 33.9 g/dL (31.0-37.0); MCV 90.8 fL (80.0-100.0); Mean Platelet Volume 10.1; Monocytes # (A) 0.5 k/uL (0-1.0); Monocytes % (A) 4 %; Neutrophils # (A) 10.6 k/uL (1.3-7.7); Neutrophils % (A) 77 %; Platelet Count 206 k/uL (150-450); RBC 4.39 m/uL (3.80-5.40); RDW 13.5 % (11.5-15.5); WBC 13.7 k/uL (3.8-10.6)
[2023-09-04 14:03] LABS: ALT 13 U/L (4-34); AST 13 U/L (14-36); African American GFR (CKD) >90 (>60 ml/min/1.73 sqM); Blood Urea Nitrogen 9 mg/dL (7-17); LDH 139 U/L (120-246); Non-African American GFR(CKD) >90 (>60 ml/min/1.73 sqM); Uric Acid 4.6 mg/dL (3.7-7.4)
[2023-09-04] MEDS ORDERED: NIFEdipine XL 30 MG TAB.ER.24 PO STA (14:16)
[2023-09-04 16:01] VITALS: TEMP 98.2
--- NOTE | 2023-09-05 13:36 | P.MSEPDOC ---
Presenting Problems - Arrival Data Date of Arrival on Unit: 09/04/23 Time of Arrival on Unit: 11:19 Mode of Transport: Ambulatory - Complaint OB-Reason for Admission/Chief Complaint: Headache, PIH Medical History - Information : 5 Para: 3 Term: 3 : 0 Abortions: Spontaneous or Elective: 1 Number of Living Children: 3 - Gestational Age Gestational Age by CHATO (wks/days): 27 Weeks and 2 Days - History Complications: Prior Review of Systems - Review of Systems Constitutional: No problems Breast: No problems ENT: No problems Cardiovascular: No problems Respiratory: No problems Gastrointestinal: No problems Genitourinary: No problems Musculoskeletal: No problems Neurological: No problems Skin: No problems Vital Signs - Temperature Temperature: 98.2 F Temperature Source: Temporal Artery Scan - Pulse Right Pulse Oximetery Pulse Rate: 123 Pulse Assessment Method: Pulse Oximetry - Respirations Respiratory Rate: 18 Oxygen Delivery Method: Room Air O2 Sat by Pulse Oximetry: 98 - Comment Vital Signs Comment: HR decreased to low 100s-110s Medical Screen Scoring - Uterine Contractions Frequency From (mins): 0 Frequency To (mins): 0 - Assessment - Baby A Baseline FHR: 145 Heart Rate - NICHD Category: Category I (Normal) Physician Notification - Physician Notified Physician Notified Date: 09/04/23 Physician Notified Time: 14:16 Physician: Yessica Dumont New Order Received: Yes (Procardia Xl) Maternal Triage Index - Maternal Triage Index Presenting for scheduled procedure w/no complaint: No - Stat/Priority 1 Stat Priority 1: No - Urgent/Priority 2 Urgent Priority 2: Yes Provider Notified: Yessica Dumont Provider Notified Time: 14:16 Criteria Met for Priority 2: Dr Dumont given Rn orders prior to patient arrival for elevated BPs to run PIH labwork again and call once PIH labwork resulted. Initial BP 142/99 and HR 123 Disposition - Disposition OB Disposition: Discharge to home Discharge Date: 09/04/23 Discharge Time: 15:30 I agree with the RN Medical Screening Exam: Yes Case reviewed; plan agreed upon as documented in EMR&OBIX.: Yes Diagnosis: GESTATNL HTN W/O SIGNIFICANT PROTEINURIA, SECOND TRIMESTER
== END 2023-09-04 15:30 | disposition home or self-care (01) ==
LOC: FBPOP 11:19
PROVIDERS: ATTEND Obstetrics & Gynecology
DX: O10.012 Pre-existing essential hypertension complicating pregnancy, second trimester (principal); Z3A.27 27 weeks gestation of pregnancy; Z88.1 Allergy status to other antibiotic agents
CPT/HCPCS: 36415; 81003; 82565; 82570; 83615; 84156; 84450; 84460; 84520; 84550; 85025; 99215

== ENCOUNTER 2023-09-06 09:33 | Emergency (ER) | payer OTHER ==
[2023-09-06 09:44] VITALS: TEMP 98.5
[2023-09-06] MEDS ORDERED: SODIUM CHLORIDE 0.9% 1,000 ML IV ONE (10:19)
[2023-09-06 10:35] LABS: Basophils % (A) 0 %; Eosinophils # (A) 0.2 k/uL (0-0.7); Eosinophils % (A) 1 %; HCT 42.3 % (34.0-46.0); HGB 14.3 gm/dL (11.4-16.0); Lymphocytes # (A) 2.3 k/uL (1.0-4.8); Lymphocytes % (A) 17 %; MCH 30.8 pg (25.0-35.0); MCHC 33.7 g/dL (31.0-37.0); MCV 91.6 fL (80.0-100.0); Mean Platelet Volume 9.6; Monocytes # (A) 0.4 k/uL (0-1.0); Monocytes % (A) 3 %; Neutrophils # (A) 10.9 k/uL (1.3-7.7); Neutrophils % (A) 78 %; Platelet Count 211 k/uL (150-450); RBC 4.62 m/uL (3.80-5.40); RDW 13.4 % (11.5-15.5)
[2023-09-06 10:50] LABS: ALT 13 U/L (4-34); AST 14 U/L (14-36); African American GFR (CKD) >90 (>60 ml/min/1.73 sqM); Alkaline Phosphatase 75 U/L (38-126); Anion Gap 10 mmol/L; Blood Urea Nitrogen 9 mg/dL (7-17); Calcium 9.4 mg/dL (8.4-10.2); Carbon Dioxide 22 mmol/L (22-30); Chloride 105 mmol/L (98-107); Glucose 122 mg/dL (74-99); LDH 147 U/L (120-246); Magnesium 1.7 mg/dL (1.6-2.3); Non-African American GFR(CKD) >90 (>60 ml/min/1.73 sqM); Sodium 137 mmol/L (137-145); Total Bilirubin 0.3 mg/dL (0.2-1.3); Total Protein 7.1 g/dL (6.3-8.2); Uric Acid 4.7 mg/dL (3.7-7.4)
--- NOTE | 2023-09-06 10:53 | ED ---
General Adult HPI - General Chief complaint: Chest Pain Stated complaint: chest pain-27wk preg Time Seen by Provider: 09/06/23 09:59 Source: patient, RN notes reviewed Mode of arrival: ambulatory Limitations: no limitations - History of Present Illness Initial comments: This a 28-year-old female presents emergency Department chief complaint of chest discomfort, hypertension. Patient [address] Fagan. Patient states that she did develop preeclampsia at 39 weeks her first . Patient is A0 states that she was placed in labetalol as her blood pressure has been elevated for this she is not doing well on and recently switched to nifedipine. Patient states she is scheduled see maternal specialist tomorrow and [facility]. Patient describes the symptoms as some pressure it is slightly worse when she lays back. Denies any leg pain or leg swelling she's had no recent proteinuria - Related Data Home Medications Medication Instructions Recorded Confirmed Thyroid,Pork [Legal Financial Specialist Thyroid] 15 mg PO DAILY 01/13/22 09/06/23 NIFEdipine XL [Procardia Xl] 30 mg PO DAILY 09/06/23 09/06/23 Allergies Allergy/AdvReac Type Severity Reaction Status Date / Time azithromycin [From Zithromax] Allergy Rash/Hives Verified 09/06/23 11:59 Review of Systems ROS Statement: Those systems with pertinent positive or pertinent negative responses have been documented in the HPI. ROS Other: All systems not noted in ROS Statement are negative. Past Medical History Past Medical History: Thyroid Disorder Additional Past Medical History / Comment(s): History of preeclampsia with first ; multiple ear surgeries; kidney stones History of Any Multi-Drug Resistant Organisms: None Reported Past Surgical History: Section, Ear Surgery, Tonsillectomy Additional Past Surgical History / Comment(s): ear surgery x 11 on missy. ears for tubes & polyps, kidney stones. wisdom teeth Past Anesthesia/Blood Transfusion Reactions: No Reported Reaction Past Psychological History: No Psychological Hx Reported Smoking Status: Never smoker - Past Family History Father Family Medical History: Hypertension Mother Family Medical History: Thyroid Disorder General Exam Limitations: no limitations General appearance: alert, in no apparent distress Head exam: Present: atraumatic, normocephalic, normal inspection Eye exam: Present: normal appearance, PERRL, EOMI. Absent: scleral icterus, conjunctival injection, periorbital swelling ENT exam: Present: normal exam, mucous membranes moist Neck exam: Present: normal inspection, full ROM. Absent: tenderness, meningismus, lymphadenopathy Respiratory exam: Present: normal lung sounds bilaterally. Absent: respiratory distress, wheezes, rales, rhonchi, stridor Cardiovascular Exam: Present: normal rhythm, tachycardia, normal heart sounds. Absent: systolic murmur, diastolic murmur, rubs, gallop, clicks GI/Abdominal exam: Present: soft, normal bowel sounds. Absent: distended, tenderness, guarding, rebound, rigid Neurological exam: Present: alert Course Vital Signs 09/06/23 09/06/23 09/06/23 09:41 10:39 10:44 Temperature 98.5 F Pulse Rate 112 H Pulse Rate [ 118 H Pulse Oximetery ] Respiratory 16 18 Rate Blood Pressure 130/76 O2 Sat by Pulse 98 Oximetry 09/06/23 11:22 Temperature Pulse Rate 110 H Pulse Rate [ Pulse Oximetery ] Respiratory 18 Rate Blood Pressure 122/81 O2 Sat by Pulse 96 Oximetry EKG Findings - EKG Comments: EKG Findings:: EKG 29:50 sinus tachycardia with short SC rate of 120 SC 104 QRS 73 QT / QTC 303 /375 - EKG Results: EKG: interpreted by ROSA Medical Decision Making - Medical Decision Making Was pt. sent in by a medical professional or institution (, PA, PLANT SECURITY GUARD, urgent care, hospital, or half-way...) When possible be specific @ -No Did you speak to anyone other than the patient for history (EMS, parent, family, police, friend...)? What history was obtained from this source @ -No Did you review nursing and triage notes (agree or disagree)? Why? @ -I reviewed and agree with nursing and triage notes Were old charts reviewed (outside hosp., previous admission, EMS record, old EKG, old radiological studies, urgent care reports/EKG's, half-way records)? Report findings @ -Reviewed recent laboratory studies, ASSOCIATE DIRECTOR DATA & ANALYTICS Differential Diagnosis (chest pain, altered mental status, abdominal pain women, abdominal pain men, vaginal bleeding, weakness, fever, dyspnea, syncope, headach e, dizziness, GI bleed, back pain, seizure, CVA, palpatations, mental health, musculoskeletal)? @ -Differential Palpitations Ventricular arrhythmias, atrial arrhythmias, myocardial infarction, anemia, thyrotoxicosis, electrolyte imbalance, hypokalemia, pulmonary embolism, pulmon carlos disease, drugs, alcohol, anxiety, stress.... This is not meant to be an all-inclusive list.ble EKG interpreted by me (3pts min.). @ -As above X-rays interpreted by me (1pt min.). @ -Chest x-ray 1 view no acute process CT interpreted by me (1pt min.). @ -None done U/S interpreted by me (1pt. min.). @ -None done What testing was considered but not performed or refused? (CT, X-rays, U/S, labs)? Why? @ -None What meds were considered but not given or refused? Why? @ -None Did you discuss the management of the patient with other professionals (anitra cornelius i.e. , PA, PLANT SECURITY GUARD, lab, RT, psych nurse, social sciences department chair, hse advisor, teacher, property portfolio officer, casework manager)? Give summary @ -Dr. Fagan ASSOCIATE DIRECTOR DATA & ANALYTICS updating physician about current patient vitals, laboratory studies. Review the patient may be discharged Was smoking cessation discussed for >3mins.? @ -No Was critical care preformed (if so, how long)? @ -No Were there social determinants of health that impacted care today? How? (Homelessness, low income, unemployed, alcoholism, drug addiction, transportation, low edu. Level, literacy, decrease access to med. care, fci, rehab)? @ -No Was there de-escalation of care discussed even if they declined (Discuss DNR or withdrawal of care, Hospice)? DNR status @ -No What co-morbidities impacted this encounter? (DM, HTN, Smoking, COPD, CAD, Cancer, CVA, ARF, Chemo, Hep., AIDS, mental health diagnosis, sleep apnea, morbid obesity)? @ - prior preeclampsia Was patient admitted / discharged? Hospital course, mention meds given and route, prescriptions, significant lab abnormalities, going to OR and other pertinent info. @ -Discharge patient's blood pressure, heart rate has improved. Patient's laboratory studies are unremarkable. Patient states she does feel improved after IV fluids. Patient has follow-up with internal medicine tomorrow patient is return for any worsening changes symptoms. Patient recent evaluation by cardiology and cleared by cardiology. Undiagnosed new problem with uncertain prognosis? @ -No Drug Therapy requiring intensive monitoring for toxicity (Heparin, Nitro, Insulin, Cardizem)? @ -No Were any procedures done? @ -No Diagnosis/symptom? @ -Palpitations Acute, or Chronic, or Acute on Chronic? @ -Acute Uncomplicated (without systemic symptoms) or Complicated (systemic symptoms)? @ -Uncomplicated Side effects of treatment? @ -No Exacerbation, Progression, or Severe Exacerbation? @ -No Poses a threat to life or bodily function? How? (Chest pain, [place], [place], pneumonia, PE, COPD, DKA, ARF, appy, cholecystitis, CVA, Diverticulitis, Homicidal, Suicidal, threat to staff... and all critical care pts) @ -No - Lab Data Result diagrams: 09/06/23 09:50 09/06/23 09:50 Lab Results 09/06/23 09/06/23 09/06/23 Range/Units 09:50 09:50 09:50 WBC 14.0 H (3.8-10.6) k/uL RBC 4.62 (3.80-5.40) m/uL Hgb 14.3 (11.4-16.0) gm/dL Hct 42.3 (34.0-46.0) % MCV 91.6 (80.0-100.0) fL MCH 30.8 (25.0-35.0) pg MCHC 33.7 (31.0-37.0) g/dL RDW 13.4 (11.5-15.5) % Plt Count 211 (150-450) k/uL MPV 9.6 Neutrophils % 78 % Lymphocytes % 17 % Monocytes % 3 % Eosinophils % 1 % Basophils % 0 % Neutrophils # 10.9 H (1.3-7.7) k/uL Lymphocytes # 2.3 (1.0-4.8) k/uL Monocytes # 0.4 (0-1.0) k/uL Eosinophils # 0.2 (0-0.7) k/uL Basophils # 0.0 (0-0.2) k/uL PT 10.1 (10.0-12.5) sec INR 0.9 (<1.2) APTT 24.4 (22.0-30.0) sec Sodium (137-145) mmol/L Potassium (3.5-5.1) mmol/L Chloride (98-107) mmol/L Carbon Dioxide (22-30) mmol/L Anion Gap mmol/L BUN (7-17) mg/dL Creatinine (0.52-1.04) mg/dL Est GFR (CKD-EPI)AfAm (>60 ml/min/1.73 sqM) Est GFR (CKD-EPI)NonAf (>60 ml/min/1.73 sqM) Glucose (74-99) mg/dL Uric Acid (3.7-7.4) mg/dL Calcium (8.4-10.2) mg/dL Magnesium (1.6-2.3) mg/dL Total Bilirubin (0.2-1.3) mg/dL AST (14-36) U/L ALT (4-34) U/L Alkaline Phosphatase (38-126) U/L Lactate Dehydrogenase (120-246) U/L Troponin I (0.000-0.034) ng/mL NT-Pro-B Natriuret Pep pg/mL Total Protein (6.3-8.2) g/dL Albumin (3.5-5.0) g/dL Urine Color Light Yellow Urine Appearance Cloudy H (Clear) Urine pH 6.5 (5.0-8.0) Ur Specific [place] 1.012 (1.001-1.035) Urine Protein Negative (Negative) Urine Glucose (UA) Negative (Negative) Urine Ketones Negative (Negative) Urine Blood Negative (Negative) Urine Nitrite Negative (Negative) Urine Bilirubin Negative (Negative) Urine Urobilinogen <2.0 (<2.0) mg/dL Ur Leukocyte Esterase Negative (Negative) Urine RBC 1 (0-5) /hpf Urine WBC 2 (0-5) /hpf Ur Squamous Epith Cells 21 H (0-4) /hpf Urine Bacteria Few H (None) /hpf Urine Mucus Occasional H (None) /hpf 09/06/23 09/06/23 Range/Units 09:50 09:50 WBC (3.8-10.6) k/uL RBC (3.80-5.40) m/uL Hgb (11.4-16.0) gm/dL Hct (34.0-46.0) % MCV (80.0-100.0) fL MCH (25.0-35.0) pg MCHC (31.0-37.0) g/dL RDW (11.5-15.5) % Plt Count (150-450) k/uL MPV Neutrophils % % Lymphocytes % % Monocytes % % Eosinophils % % Basophils % % Neutrophils # (1.3-7.7) k/uL Lymphocytes # (1.0-4.8) k/uL Monocytes # (0-1.0) k/uL Eosinophils # (0-0.7) k/uL Basophils # (0-0.2) k/uL PT (10.0-12.5) sec INR (<1.2) APTT (22.0-30.0) sec Sodium 137 (137-145) mmol/L Potassium 4.0 (3.5-5.1) mmol/L Chloride 105 (98-107) mmol/L Carbon Dioxide 22 (22-30) mmol/L Anion Gap 10 mmol/L BUN 9 (7-17) mg/dL Creatinine 0.53 (0.52-1.04) mg/dL Est GFR (CKD-EPI)AfAm >90 (>60 ml/min/1.73 sqM) Est GFR (CKD-EPI)NonAf >90 (>60 ml/min/1.73 sqM) Glucose 122 H (74-99) mg/dL Uric Acid 4.7 (3.7-7.4) mg/dL Calcium 9.4 (8.4-10.2) mg/dL Magnesium 1.7 (1.6-2.3) mg/dL Total Bilirubin 0.3 (0.2-1.3) mg/dL AST 14 (14-36) U/L ALT 13 (4-34) U/L Alkaline Phosphatase 75 (38-126) U/L Lactate Dehydrogenase 147 (120-246) U/L Troponin I <0.012 (0.000-0.034) ng/mL NT-Pro-B Natriuret Pep <20 pg/mL Total Protein 7.1 (6.3-8.2) g/dL Albumin 4.0 (3.5-5.0) g/dL Urine Color Urine Appearance (Clear) Urine pH (5.0-8.0) Ur Specific [place] (1.001-1.035) Urine Protein (Negative) Urine Glucose (UA) (Negative) Urine Ketones (Negative) Urine Blood (Negative) Urine Nitrite (Negative) Urine Bilirubin (Negative) Urine Urobilinogen (<2.0) mg/dL Ur Leukocyte Esterase (Negative) Urine RBC (0-5) /hpf Urine WBC (0-5) /hpf Ur Squamous Epith Cells (0-4) /hpf Urine Bacteria (None) /hpf Urine Mucus (None) /hpf Disposition Clinical Impression: Palpitations Disposition: HOME SELF-CARE Condition: Stable Instructions (If sedation given, give patient instructions): Chest Pain (ED) Additional Instructions: Please return to the Emergency Department if symptoms worsen or any other concerns. Is patient prescribed a controlled substance at d/c from ED?: No Referrals: None,Stated [REFERRING] - 1-2 days Time of Disposition: 12:13
[2023-09-06 10:55] LABS: Appearance,Urine Cloudy (Clear); Bacteria,Urine Few /hpf; Bilirubin,Urine Negative (Negative); Blood,Urine Negative (Negative); Color,Urine Light Yellow; Glucose,Urine (UA) Negative (Negative); Ketones,Urine Negative (Negative); Leukocyte Esterase,Urine Negative (Negative); Mucus,Urine Occasional /hpf; Nitrite,Urine Negative (Negative); PH, Urine 6.5 (5.0-8.0); Protein,Urine Negative (Negative); RBC,Urine 1 /hpf (0-5); Specific Gravity,Urine 1.012 (1.001-1.035); Squamous Epithelial Cell,Urine 21 /hpf (0-4); Urobilinogen,Urine <2.0 mg/dL (<2.0); WBC,Urine 2 /hpf (0-5)
[2023-09-06 10:57] LABS: NT-Pro-B-Type Natriuretic Pept <20 pg/mL
[2023-09-06 11:02] VITALS: RESP 18
--- NOTE | 2023-09-06 11:21 | XR ---
EXAMINATION TYPE: XR chest 1V DATE OF EXAM: 09/06/2023 COMPARISON: NONE HISTORY: tightness in chest. TECHNIQUE: Single frontal view of the chest is obtained. FINDINGS: There is no focal air space opacity, pleural effusion, or pneumothorax seen. The cardiac silhouette size is within normal limits. The osseous structures are intact. IMPRESSION: No acute process.
[2023-09-06 11:24] LABS: INR 0.9 (<1.2); Partial Thromboplastin Time 24.4 sec (22.0-30.0); Prothrombin Time 10.1 sec (10.0-12.5)
[2023-09-06 12:46] VITALS: BP 118/78; PULSE 104
== END 2023-09-06 12:26 | disposition home or self-care (01) ==
LOC: EC 09:33
DX: O99.413 Diseases of the circulatory system complicating pregnancy, third trimester (principal); R00.2 Palpitations; R00.0 Tachycardia, unspecified; O99.283 Endocrine, nutritional and metabolic diseases complicating pregnancy, third trimester; E07.9 Disorder of thyroid, unspecified; Z79.890 Hormone replacement therapy; Z3A.27 27 weeks gestation of pregnancy
CPT/HCPCS: 36415; 71045; 80053; 81001; 83615; 83735; 83880; 84484; 84550; 85025; 85610; 85730; 93005; 96360; 96361; 99285

== ENCOUNTER → 2023-10-29 | Outpatient (CLI) | payer OTHER ==
[2023-10-29 18:17] LABS: Appearance,Urine Cloudy (Clear); Bacteria,Urine Occasional /hpf; Bilirubin,Urine Negative (Negative); Blood,Urine Negative (Negative); Color,Urine Light Yellow; Glucose,Urine (UA) Negative (Negative); Ketones,Urine Negative (Negative); Leukocyte Esterase,Urine Trace (Negative); Mucus,Urine Rare /hpf; Nitrite,Urine Negative (Negative); Protein,Urine Trace (Negative); RBC,Urine 1 /hpf (0-5); Specific Gravity,Urine 1.017 (1.001-1.035); Squamous Epithelial Cell,Urine 41 /hpf (0-4); Urobilinogen,Urine <2.0 mg/dL (<2.0); WBC,Urine 4 /hpf (0-5)
[2023-10-29 18:33] LABS: Creatinine,Urine Random 79.8 mg/dL
[2023-10-29 18:44] LABS: ALT 15 U/L (4-34); African American GFR (CKD) >90 (>60 ml/min/1.73 sqM); Blood Urea Nitrogen 6 mg/dL (7-17); Non-African American GFR(CKD) >90 (>60 ml/min/1.73 sqM); Uric Acid 4.1 mg/dL (3.7-7.4)
[2023-10-29 18:46] LABS: Basophils % (A) 0 %; Eosinophils # (A) 0.1 k/uL (0-0.7); Eosinophils % (A) 1 %; HCT 37.8 % (34.0-46.0); HGB 12.9 gm/dL (11.4-16.0); Lymphocytes # (A) 2.3 k/uL (1.0-4.8); Lymphocytes % (A) 19 %; MCH 30.4 pg (25.0-35.0); MCHC 34.2 g/dL (31.0-37.0); MCV 89.1 fL (80.0-100.0); Mean Platelet Volume 10.9; Monocytes # (A) 0.6 k/uL (0-1.0); Monocytes % (A) 5 %; Neutrophils # (A) 8.6 k/uL (1.3-7.7); Neutrophils % (A) 73 %; Platelet Count 193 k/uL (150-450); RBC 4.24 m/uL (3.80-5.40); WBC 11.9 k/uL (3.8-10.6)
[2023-10-29 19:02] LABS: AST 23 U/L (14-36); Magnesium 1.9 mg/dL (1.6-2.3)
[2023-10-29 19:03] LABS: LDH 240 U/L (120-246)
[2023-10-29 19:45] VITALS: BP 166/82; PULSE 113; TEMP 97.6
--- NOTE | 2023-10-30 00:04 | P.MSEPDOC ---
Presenting Problems - Arrival Data Date of Arrival on Unit: 10/29/23 Time of Arrival on Unit: 17:10 Mode of Transport: Ambulatory - Complaint OB-Reason for Admission/Chief Complaint: Possible Onset of Labor, PIH, Other Comment: ctx, pain, flank pain Medical History - Information : 5 Para: 3 Term: 3 : 0 Abortions: Spontaneous or Elective: 1 Number of Living Children: 3 - Gestational Age Gestational Age by CHATO (wks/days): 35 Weeks and 1 Days - History Complications: Preeclampsia, Prior Review of Systems - Review of Systems Constitutional: No problems Breast: No problems ENT: No problems Cardiovascular: No problems Respiratory: No problems Gastrointestinal: No problems Genitourinary: No problems Musculoskeletal: No problems Neurological: No problems Skin: No problems Vital Signs - Temperature Temperature: 97.6 F Temperature Source: Oral - Pulse Right Pulse Rate: 113 Pulse Assessment Method: Pulse Oximetry - Respirations Oxygen Delivery Method: Room Air - Blood Pressure Right Arm Blood Pressure: 166/82 Blood Pressure Mean: 110 Blood Pressure Source: Automatic Cuff Medical Screen Scoring - Assessment - Baby A Heart Rate - NICHD Category: Category I (Normal) NST: Reactive Physician Notification - Physician Notified Physician Notified Date: 10/29/23 Physician Notified Time: 19:18 Physician: Yessica Dumont Order Received: Yes (Order to D/C to home) - Notification Comment Comment: Pt pain, bp's, labs, fhr cat I all reviewed with Dr Dumont, Pt okay to d/c home. Maternal Triage Index - Maternal Triage Index Presenting for scheduled procedure w/no complaint: No - Stat/Priority 1 Stat Priority 1: No - Urgent/Priority 2 Urgent Priority 2: No - Prompt/Priority 3 Prompt Priority 3: Yes Criteria Met for Priority 3: Pt presented for ctx (pt known repeat c/s), pain, flank pain with known kidney stone issues. No cervical change made, bp's wnl, PIH labs wnl Disposition - Disposition OB Disposition: Discharge to home Discharge Date: 10/29/23 Discharge Time: 19:25 I agree with the RN Medical Screening Exam: Yes Case reviewed; plan agreed upon as documented in EMR&OBIX.: Yes Diagnosis: RELATED CONDITIONS, UNSPECIFIED, THIRD TRIMESTER Additional Diagnoses: Gestational hypertension
== END ==
LOC: FBPOP 17:10
PROVIDERS: ATTEND Obstetrics & Gynecology
DX: O47.03 False labor before 37 completed weeks of gestation, third trimester (principal); Z3A.35 35 weeks gestation of pregnancy; Z88.1 Allergy status to other antibiotic agents
CPT/HCPCS: 36415; 59025; 81001; 82565; 82570; 83615; 83735; 84156; 84450; 84460; 84520; 84550; 85025; 99215

== ENCOUNTER 2023-11-10 05:51 | Inpatient (IN) | payer OTHER ==
[2023-11-07 15:38] VITALS: BMI 34.3
--- NOTE | 2023-11-09 12:31 | P.HPOB ---
History of Present Illness H&P Date: 11/09/23 Chief Complaint: Repeat , gestational hypertension This patient is a pleasant 28-year-old 5 para 3 female estimated date of confinement 12/02/2023 estimated gestational age 37 weeks who presents to labor and delivery for repeat section due to previous and gestational hypertension. Patient's history is such that at approximately 28 weeks she developed hypertension and was admitted by maternal medicine. Patient at that time was recommended to have weekly labs, regular testing and delivery at 37 weeks. She was given Celestone at that time. care is also complicated by kidney stones for which she passed a large stone at approximately 30 weeks. Pale care otherwise has been uncomplicated. Review of Systems Cardiovascular: Reports as per HPI Genitourinary: Reports Menstruation: Reports amenorrhea Past Medical History Past Medical History: Thyroid Disorder Additional Past Medical History / Comment(s): preeclampsia with first ., hx kidney stones., Hashimotos., states gestational htn. History of Any Multi-Drug Resistant Organisms: None Reported Past Surgical History: Section, Ear Surgery, Tonsillectomy Additional Past Surgical History / Comment(s): ear surgery x 11 on missy. ears for tubes & polyps, kidney stones. wisdom teeth Past Anesthesia/Blood Transfusion Reactions: No Reported Reaction Past Psychological History: No Psychological Hx Reported Smoking Status: Former smoker Past Alcohol Use History: None Reported Additional Past Alcohol Use History / Comment(s): smoked for approx 5 years and quit 7 years ago (2017) Past Drug Use History: None Reported - Past Family History Father Family Medical History: Hypertension Mother Family Medical History: Thyroid Disorder Medications and Allergies Home Medications Medication Instructions Recorded Confirmed Type Vit No.179/Iron/Folic 1 each PO DAILY 11/07/23 11/07/23 History [ Tablet] Thyroid,Pork [Corporate Librarian Thyroid] 30 mg PO DAILY 11/07/23 11/07/23 History Allergies Allergy/AdvReac Type Severity Reaction Status Date / Time azithromycin [From Zithromax] Allergy Rash/Hives Verified 11/07/23 15:02 Exam - OBG Physical Exam Abdomen: bowel sounds normal, no diffuse tenderness, no bruit present, no guarding noted, no hepatomegaly, no splenomegaly, no mass Vulva: both: normal Vagina: normal moisture, no discharge Cervix: no lesion, no discharge Uterus: enlarged Results labs show she is B positive, rubella immune, RPR nonreactive, hepatitis B and C are negative, Glucola was 147 with a normal three-hour gtt., group B strep was negative, most recent ultrasound showed estimated weight at 5 lbs. 5 oz. which is the 49th percentile. Patient's had regular biophysical profiles and nonstress testing Assessment and Plan Assessment: This is a pleasant 28-year-old 5 para 3 female 37 weeks gestation with gestational hypertension with recommendations per maternal- medicine for delivery at this time. Patient's had a previous section 3 and desires repeat. Plan is repeat low transverse section. Patient I discussed the surgery and risks and risks of infection, bleeding, possible injury bowel, bladder, vessels, and other organs. All the patient's questions are answered and a written consent is obtained. (1) 37 weeks gestation of Status: Acute Code(s): Z3A.37 - 37 WEEKS GESTATION OF SNOMED Code(s): 50580820 (2) Gestational hypertension Status: Acute Code(s): O13.9 - GESTATIONAL HTN W/O SIGNIFICANT PROTEINURIA, UNSP TRIMESTER SNOMED Code(s): 43130652 (3) Previous delivery affecting Status: Acute Code(s): O34.219 - MATERNAL CARE FOR UNSP TYPE SCAR FROM PREVIOUS DEL SNOMED Code(s): 391937885
[2023-11-10] MEDS ORDERED: CITRIC ACID-SODIUM CITRATE 15 ML CUP PO ONE (06:00)
[2023-11-10] MEDS ORDERED: CARBOPROST TROMETHAMINE 250 MCG/ML 1 ML AMP IM PRN (06:00)
[2023-11-10] MEDS ORDERED: TRANEXAMIC 1,000 MG/100ML-NACL 1,000 MG in EMPTY BAG 1 BAG IV PRN (06:00)
[2023-11-10] MEDS ORDERED: LACTATED RINGERS 1,000 ML IV SCH (06:00)
[2023-11-10] MEDS ORDERED: LACTATED RINGERS 1,000 ML IV ONE (06:00)
[2023-11-10] MEDS ORDERED: OXYTOCIN 10 UNIT/ML 1 ML VIAL IM PRN (06:00)
[2023-11-10] MEDS ORDERED: METHYLERGONOVINE 0.2 MG/ML 1 ML AMP IM PRN (06:00)
[2023-11-10] MEDS ORDERED: miSOPROStoL 200 MCG TAB PO PRN (06:00)
[2023-11-10 06:30] LABS: Basophils # (A) 0.1 k/uL (0-0.2); Basophils % (A) 1 %; Eosinophils # (A) 0.1 k/uL (0-0.7); Eosinophils % (A) 1 %; HGB 12.6 gm/dL (11.4-16.0); Lymphocytes # (A) 2.4 k/uL (1.0-4.8); Lymphocytes % (A) 22 %; MCH 30.1 pg (25.0-35.0); MCV 88.4 fL (80.0-100.0); Mean Platelet Volume 10.6; Monocytes # (A) 0.4 k/uL (0-1.0); Monocytes % (A) 4 %; Neutrophils # (A) 7.7 k/uL (1.3-7.7); Neutrophils % (A) 71 %; Platelet Count 186 k/uL (150-450); RBC 4.18 m/uL (3.80-5.40); WBC 10.9 k/uL (3.8-10.6)
[2023-11-10] MEDS ORDERED: OXYTOCIN 30 UNITS/500 ML NS BAG IV ONE (07:39)
[2023-11-10] MEDS ORDERED: DEXAMETHASONE SOD PHOSPHATE 4 MG/ML 1 ML VIAL ONE (07:39)
[2023-11-10] MEDS ORDERED: PHENYLEPHRINE 10 MG/ML VIAL ONE (07:39)
[2023-11-10] MEDS ORDERED: KETOROLAC 15 MG/ML 1 ML VIAL ONE (07:39)
[2023-11-10] MEDS ORDERED: ONDANSETRON 4 MG/2 ML VIAL ONE (07:39)
[2023-11-10] MEDS ORDERED: diphenhydrAMINE 50 MG/ML 1 ML VIAL IVP PRN ×2 (08:24→08:54)
[2023-11-10] MEDS ORDERED: MORPHINE SULFATE 2 MG/ML SYRINGE IVP PRN (08:24)
[2023-11-10] MEDS ORDERED: NALOXONE 0.4 MG/ML 1 ML VIAL IV PRN ×2 (08:24→08:54)
[2023-11-10] MEDS ORDERED: ONDANSETRON 4 MG/2 ML VIAL IVP PRN ×2 (08:24→08:54)
[2023-11-10] MEDS ORDERED: KETOROLAC 15 MG/ML 1 ML VIAL IVP PRN (08:24)
--- NOTE | 2023-11-10 08:37 | P.OP ---
Date of Procedure: 11/10/23 Preoperative Diagnosis: #1: 36-6/7 week intrauterine . #2: Previous section 3. #3: Gestational hypertension. Postoperative Diagnosis: Same Procedure(s) Performed: Repeat low transverse section Anesthesia: spinal Surgeon: Vahe Fagan Pipe Organ Builder #1: Amy De León Estimated Blood Loss (ml): 400 Pathology: other (Placenta) Condition: stable Disposition: floor Indications for Procedure: Please see dictated H&P for intimate details of this patient's admission. Brief summary is a pleasant 28-year-old 5 para 3 female estimated gestational age 36-6/7 weeks presents to labor and delivery for repeat section secondary to gestational hypertension. Patient's been followed by maternal medicine and myself recommendations proceed with delivery at this time. Patient understands this surgery and risks and risks of infection, bleeding, possible injury to bowel, bladder, vessels, and other organs. All the patient's questions are answered and a written consent is obtained. Operative Findings: This is a vigorous viable male Apgars 9 and 9 delivery time was 0801 hrs. This patient had normal-appearing uterus, tubes, ovaries. Description of Procedure: This patient has a Merida catheter placed to straight drain. She is sat sleep taken to the operating room where she sat up and spinal anesthetic is administered without incident. She has abdominal prep and drape. After the appropriate timeout, scalpels taken the previous Pfannenstiel incision is incised. A second scalpel is taken down the fascia the fascia scored with a knife. Fascial incision extended bilaterally using the Blair scissors. Fascia is dissected off the rectus muscles sharply. Rectus muscles are the peritoneum identified and entered sharply. Peritoneal incision extended superior and inferior without difficulty. Bladder blade is then placed. Bladder peritoneum was then taken off the lower uterine segment. Scalpels and taken low transverse uterine incision is then made. Using a hemostat I enter the uterine cavity bluntly and there is loss of clear fluid uterine incision is then extended bluntly. Infant's head is then guided through the incision with fundal pressure. Mouth and nares are bulb suctioned. There is no evidence of a nuchal cord. With more fundal pressure we then have deliver the rest this infant's body. This is a vigorous viable male Apgars 9 and 9 delivery time was 0801 hrs. After delivery of the infant the umbilical cord is doubly clamped and cut. The placenta is then manually extracted intact. The uterus is externalized and the uterine incision is closed using 0 Vicryl running fashion 2 layers. Excellent hemostasis is noted. With this done excess fluid is removed from the abdomen and pelvis. Uterus placed back into the abdomen. The parietal peritoneum was then closed using 0 Vicryl running fashion. Rectus muscles reapproximated in 0 Vicryl interrupted fashion. Fascial incision is then closed using 0 PDS. Fascial incision is intact and hemostatic. The subcutaneous tissues and closed using a 3-0 Vicryl. Skin is and closed using rosario. All counts are correct 3. There are no complications. and mother are taken the birthing suite in satisfactory condition.
[2023-11-10] MEDS ORDERED: METOCLOPRAMIDE 5 MG/ML 2 ML VIAL IVP PRN (08:54)
[2023-11-10] MEDS ORDERED: OXYTOCIN 30 UNITS/500 ML NS 30 UNIT in SALINE 1 500ML.BAG IV SCH (08:54)
[2023-11-10] MEDS ORDERED: LANOLIN CREAM 5 GM TUBE TOPICAL PRN (08:54)
[2023-11-10] MEDS ORDERED: ZOLPIDEM 5 MG TAB PO PRN (08:54)
[2023-11-10] MEDS ORDERED: diphenhydrAMINE 25 MG CAP PO PRN (08:54)
[2023-11-10] MEDS: NALBUPHINE 10 MG/ML (10 ML MDV) IV PRN ×2 (12:28→20:12)
[2023-11-10] MEDS: SIMETHICONE 80 MG CHEWABLE PO PRN (20:11)
[2023-11-10] MEDS: ACETAMINOPHEN TAB 500 MG TAB PO SCH ×2 (20:11→20:49)
[2023-11-10] MEDS: SENNOSIDES-DOCUSATE SODIUM 1 EACH TAB PO SCH ×2 (20:11→20:51)
[2023-11-10] MEDS: IBUPROFEN 600 MG TAB PO SCH ×2 (20:49→23:34)
[2023-11-10] MEDS: LACTATED RINGERS 1,000 ML IV SCH (20:50)
[2023-11-10] MEDS: KETOROLAC 15 MG/ML 1 ML VIAL IVP SCH ×2 (20:52→23:13)
[2023-11-11] MEDS: ACETAMINOPHEN TAB 500 MG TAB PO SCH ×4 (04:22→21:01)
[2023-11-11] MEDS: LACTATED RINGERS 1,000 ML IV SCH (04:25)
[2023-11-11] MEDS: IBUPROFEN 600 MG TAB PO SCH ×3 (04:25→18:05)
[2023-11-11] MEDS: KETOROLAC 15 MG/ML 1 ML VIAL IVP SCH (05:15)
--- NOTE | 2023-11-11 06:47 | P.PNOBGPC ---
Subjective - Subjective Patient reports: Reports appetite normal, Reports voiding normally, Reports pain well controlled, Reports ambulating normally : doing well Objective - Vital Signs Latest vital signs: Vital Signs Temp Pulse Pulse Resp BP Pulse Ox 11/11/23 05:00 16 11/11/23 04:00 97.5 F L 76 16 124/85 11/11/23 03:00 16 11/11/23 01:00 16 11/10/23 23:54 97.6 F 83 16 120/76 95 11/10/23 20:00 97.6 F 94 16 115/74 96 11/10/23 17:00 16 97 11/10/23 15:24 97.4 F L 76 16 121/76 97 11/10/23 15:00 16 11/10/23 13:24 98 11/10/23 13:00 16 11/10/23 12:30 97.4 F L 68 13 106/75 96 11/10/23 11:24 16 98 11/10/23 10:40 77 16 133/82 98 11/10/23 10:00 97.0 F L 69 16 120/80 98 11/10/23 09:30 65 16 119/81 98 11/10/23 09:24 16 98 11/10/23 09:15 68 16 104/66 97 11/10/23 08:45 97.0 F L 77 16 117/64 96 Intake and Output 11/10/23 11/10/23 11/11/23 14:59 22:59 06:59 Output Total 722 750 550 Balance -722 -750 -550 Output: Urine 450 750 550 Straight 600 100 Output, Quantitative 272 Blood Loss Other: # Voids 1 - Exam Lungs: bilateral: normal Chest: Normal S1, Normal S2 Extremities: Present: normal Abdomen: Present: normal appearance, soft. Absent: distention, tenderness Incision: Present: normal, dry, intact Uterus: Present: normal, firm Assessment and Plan Assessment: Post operative day #1. Patient is resting without new complaints. She did have a episode of urinary retention however this is resolved. Vital signs are stable, blood pressures are excellent today. Patient's incision is intact and dry she is having normal lochia. CBC is pending at time of this dictation. My impression this is a normal post operative course. Plan is to allow the patient to shower, encourage ambulation, and check a CBC. (1) 37 weeks gestation of Current Visit: No Status: Acute Code(s): Z3A.37 - 37 WEEKS GESTATION OF SNOMED Code(s): 83451244 (2) Gestational hypertension Current Visit: No Status: Acute Code(s): O13.9 - GESTATIONAL HTN W/O SIGNIFICANT PROTEINURIA, UNSP TRIMESTER SNOMED Code(s): 03532549 (3) Previous delivery affecting Current Visit: No Status: Acute Code(s): O34.219 - MATERNAL CARE FOR UNSP TYPE SCAR FROM PREVIOUS DEL SNOMED Code(s): 569544529
[2023-11-11 07:22] LABS: Basophils % (A) 0 %; Eosinophils # (A) 0.2 k/uL (0-0.7); Eosinophils % (A) 2 %; HCT 32.2 % (34.0-46.0); HGB 10.6 gm/dL (11.4-16.0); Lymphocytes # (A) 2.7 k/uL (1.0-4.8); Lymphocytes % (A) 21 %; MCH 29.8 pg (25.0-35.0); MCV 90.4 fL (80.0-100.0); Mean Platelet Volume 10.5; Monocytes # (A) 0.6 k/uL (0-1.0); Monocytes % (A) 5 %; Neutrophils # (A) 9.1 k/uL (1.3-7.7); Neutrophils % (A) 71 %; Platelet Count 164 k/uL (150-450); RBC 3.56 m/uL (3.80-5.40); RDW 13.6 % (11.5-15.5); WBC 12.8 k/uL (3.8-10.6)
[2023-11-11] MEDS: SIMETHICONE 80 MG CHEWABLE PO PRN ×2 (08:44→18:05)
[2023-11-11] MEDS: SENNOSIDES-DOCUSATE SODIUM 1 EACH TAB PO SCH ×2 (08:44→19:51)
[2023-11-11] MEDS: NALBUPHINE 10 MG/ML (10 ML MDV) IV PRN (08:52)
[2023-11-12] MEDS: IBUPROFEN 600 MG TAB PO SCH ×2 (00:34→06:38)
[2023-11-12] MEDS: ACETAMINOPHEN TAB 500 MG TAB PO SCH ×2 (03:00→09:03)
--- NOTE | 2023-11-12 06:50 | P.PNOBGPC ---
Subjective - Subjective Patient reports: Reports appetite normal, Reports voiding normally, Reports pain well controlled, Reports ambulating normally : doing well Objective - Vital Signs Latest vital signs: Vital Signs Temp Pulse Resp BP Pulse Ox 11/12/23 00:00 98.3 F 89 18 122/79 11/11/23 15:22 97.5 F L 87 16 117/76 11/11/23 11:00 16 11/11/23 08:55 97.5 F L 76 16 126/85 100 11/11/23 07:00 16 Intake and Output 11/11/23 11/11/23 11/12/23 14:59 22:59 06:59 Output Total 500 Balance -500 Output: Urine 500 Other: # Voids 1 1 1 - Exam Lungs: bilateral: normal Chest: Normal S1, Normal S2 Extremities: Present: normal Abdomen: Present: normal appearance, soft. Absent: distention, tenderness Incision: Present: normal, dry, intact Uterus: Present: normal, firm - Labs Labs: Abnormal Lab Results - Last 24 Hours (Table) 11/11/23 Range/Units 06:53 WBC 12.8 H (3.8-10.6) k/uL RBC 3.56 L (3.80-5.40) m/uL Hgb 10.6 L (11.4-16.0) gm/dL Hct 32.2 L (34.0-46.0) % Neutrophils # 9.1 H (1.3-7.7) k/uL Assessment and Plan Assessment: Postoperative day #2. Patient is resting without new complaints and wishes to go home. Vital signs are stable she's afebrile. Uterus is firm nontender and she is having normal lochia. Incision is intact and dry. My impression this is a normal post operative course. Plan is to continue routine postoperative care discharge home later today. (1) 37 weeks gestation of Current Visit: No Status: Acute Code(s): Z3A.37 - 37 WEEKS GESTATION OF SNOMED Code(s): 78857028 (2) Gestational hypertension Current Visit: No Status: Acute Code(s): O13.9 - GESTATIONAL HTN W/O S IGNIFICANT PROTEINURIA, UNSP TRIMESTER SNOMED Code(s): 86385712 (3) Previous delivery affecting Current Visit: No Status: Acute Code(s): O34.219 - MATERNAL CARE FOR UNSP TYPE SCAR FROM PREVIOUS DEL SNOMED Code(s): 437401935
--- NOTE | 2023-11-12 06:53 | P.DS ---
Providers Date of admission: 11/10/23 05:51 Expected date of discharge: 11/12/23 Attending physician: Vahe Fagan Primary care physician: Stated None - Discharge Diagnosis(es) (1) 37 weeks gestation of Current Visit: No Status: Acute (2) Gestational hypertension Current Visit: No Status: Acute (3) Previous delivery affecting Current Visit: No Status: Acute Hospital Course: Please see dictated H&P for intimate details of this patient's admission. Brief summary is a 28-year-old 5 para 3 female 37 weeks gestation admitted to labor and delivery for elective repeat section and gestational hypertension. Patient goes above-named surgery for viable male . The see dictated operative note. Postoperatively she does well and on postoperative 2 cell to be stable for discharge home follow up with me in 1 week. Procedures: Repeat low transverse section Patient Condition at Discharge: Good Plan - Discharge Summary New Discharge Prescriptions: New Ibuprofen [Motrin] 600 mg PO Q6H 30 Days tab oxyCODONE HCL [OxyIR] 5 mg PO Q4HR PRN #18 tab PRN Reason: Pain Scale 4 - 6 No Action Thyroid,Pork [Aerospace Technician Thyroid] 30 mg PO DAILY Vit No.179/Iron/Folic [ Tablet] 1 each PO DAILY Discharge Medication List Vit No.179/Iron/Folic [ Tablet] 1 each PO DAILY 11/07/23 [History] Thyroid,Pork [Aerospace Technician Thyroid] 30 mg PO DAILY 11/07/23 [History] Ibuprofen [Motrin] 600 mg PO Q6H 30 Days tab 11/11/23 [Rx] oxyCODONE HCL [OxyIR] 5 mg PO Q4HR PRN #18 tab 11/11/23 [Rx] Follow up Appointment(s)/Referral(s): Vahe Fagan MD [STAFF PHYSICIAN] - 12/22/23 9:45 am (Post Operative appointment 11-21-2023 at 1:30pm) Patient Instructions/Handouts: (DC) Activity/Diet/Wound Care/Special Instructions: No heavy lifting or strenuous activity for 6 weeks. No intercourse or anything per vagina for 6 weeks. Please call if any fever, chills, excessive vaginal bleeding, and/or abdominal pain. Discharge Disposition: HOME SELF-CARE
[2023-11-12 08:51] VITALS: BP 131/83; PULSE 90; RESP 16; TEMP 97.7
[2023-11-12] MEDS: SENNOSIDES-DOCUSATE SODIUM 1 EACH TAB PO SCH (09:02)
== END 2023-11-12 10:20 | disposition home or self-care (01) | DRG 787 ==
LOC: 4FBP 05:51
PROVIDERS: ADMIT Obstetrics & Gynecology; ATTEND Obstetrics & Gynecology
PROC: 10D00Z1 Extraction of Products of Conception, Low, Open Approach (ICD-10-PCS; principal; 2023-11-10 08:00)
DX: O34.211 Maternal care for low transverse scar from previous cesarean delivery (principal); O26.833 Pregnancy related renal disease, third trimester; O13.4 Gestational [pregnancy-induced] hypertension without significant proteinuria, complicating childbirth; Z37.0 Single live birth; Z3A.37 37 weeks gestation of pregnancy; Z82.49 Family history of ischemic heart disease and other diseases of the circulatory system; Z87.442 Personal history of urinary calculi; Z87.891 Personal history of nicotine dependence; O99.284 Endocrine, nutritional and metabolic diseases complicating childbirth; E06.3 Autoimmune thyroiditis; R33.8 Other retention of urine; O90.89 Other complications of the puerperium, not elsewhere classified
CPT/HCPCS: 85025; 86850; 86900; 86901; 88307

== ENCOUNTER 2023-11-17 11:15 | Outpatient (CLI) | payer OTHER ==
[2023-11-17] MEDS ORDERED: LABETALOL 100 MG TAB PO STA (12:23)
[2023-11-17 14:29] LABS: Basophils # (A) 0.1 k/uL (0-0.2); Basophils % (A) 1 %; Eosinophils # (A) 0.2 k/uL (0-0.7); Eosinophils % (A) 2 %; HCT 40.1 % (34.0-46.0); HGB 13.3 gm/dL (11.4-16.0); Lymphocytes # (A) 2.4 k/uL (1.0-4.8); Lymphocytes % (A) 26 %; MCH 30.1 pg (25.0-35.0); MCHC 33.2 g/dL (31.0-37.0); MCV 90.7 fL (80.0-100.0); Mean Platelet Volume 9.2; Monocytes # (A) 0.4 k/uL (0-1.0); Monocytes % (A) 4 %; Neutrophils # (A) 6.2 k/uL (1.3-7.7); Neutrophils % (A) 67 %; Platelet Count 265 k/uL (150-450); RBC 4.43 m/uL (3.80-5.40); RDW 13.3 % (11.5-15.5); WBC 9.3 k/uL (3.8-10.6)
[2023-11-17 14:54] LABS: ALT 22 U/L (4-34); AST 26 U/L (14-36); African American GFR (CKD) >90 (>60 ml/min/1.73 sqM); Blood Urea Nitrogen 14 mg/dL (7-17); LDH 227 U/L (120-246); Non-African American GFR(CKD) >90 (>60 ml/min/1.73 sqM); Uric Acid 5.9 mg/dL (3.7-7.4)
[2023-11-17 15:59] VITALS: BP 153/93; PULSE 74; RESP 16; TEMP 98.1
--- NOTE | 2023-11-18 06:34 | P.MSEPDOC ---
Presenting Problems - Arrival Data Date of Arrival on Unit: 11/17/23 Time of Arrival on Unit: 11:15 Mode of Transport: Ambulatory - Complaint OB-Reason for Admission/Chief Complaint: Headache Comment: 1 week C/S with elevated blood pressures and headache Medical History - Gestational Age Gestational Age by CHATO (wks/days): 41 Weeks and 0 Days - History Comment: EDC unknown, pt delivered 11/10/2023 (EDC being entered is a requirement in this form) Review of Systems - Review of Systems Constitutional: No problems Breast: No problems ENT: No problems Cardiovascular: No problems Respiratory: No problems Gastrointestinal: No problems Genitourinary: No problems Musculoskeletal: No problems Neurological: No problems Skin: No problems Vital Signs - Temperature Temperature: 98.1 F Temperature Source: Oral - Pulse Right Pulse Oximetery Pulse Rate: 74 Pulse Assessment Method: Pulse Oximetry - Respirations Respiratory Rate: 16 Oxygen Delivery Method: Room Air O2 Sat by Pulse Oximetry: 98 - Blood Pressure Right Arm Blood Pressure: 153/93 Blood Pressure Mean: 113 Blood Pressure Source: Automatic Cuff Medical Screen Scoring - Uterine Contractions Frequency From (mins): 0 Frequency To (mins): 0 Physician Notification - Physician Notified Physician Notified Date: 11/17/23 Physician Notified Time: 11:50 Physician: Vahe Fagan New Order Received: Yes (PIH labwork , oral labetalol) Maternal Triage Index - Maternal Triage Index Presenting for scheduled procedure w/no complaint: No - Stat/Priority 1 Stat Priority 1: No - Urgent/Priority 2 Urgent Priority 2: Yes Provider Notified: Vahe Fagan Provider Notified Time: 11:50 Criteria Met for Priority 2: elevated BPs Disposition - Disposition OB Disposition: Discharge to home Discharge Date: 11/17/23 Discharge Time: 15:10 I agree with the RN Medical Screening Exam: Yes Case reviewed; plan agreed upon as documented in EMR&OBIX.: Yes Diagnosis: GESTATNL HTN WITHOUT SIGNIFICANT PROTEIN, COMP THE PUERP (This patient is a pleasant 28-year-old multiparous patient status section approximately 1 week ago for gestational hypertension. Patient call the office today with complaints of headache and increased blood pressure. Blood pressures here in labor and delivery showed him to be mildly elevated. Repeat preeclampsia labs are normal. Patient was given one dose of labetalol 100 mg with good resolution of her blood pressures. Patient's felt to be stable for discharge home on oral labetalol to follow up with me in 2 days for repeat blood pressure check in the office. At this time there is no indication for admission her magnesium sulfate therapy. Patient does understand indications to call for other concerns.)
== END 2023-11-17 15:10 | disposition home or self-care (01) ==
LOC: FBPOP 11:15
PROVIDERS: ATTEND Obstetrics & Gynecology
DX: O13.5 Gestational [pregnancy-induced] hypertension without significant proteinuria, complicating the puerperium (principal); Z3A.41 41 weeks gestation of pregnancy; Z88.1 Allergy status to other antibiotic agents
CPT/HCPCS: 82565; 83615; 84450; 84460; 84520; 84550; 85025; 99215

== ENCOUNTER → 2024-01-25 | Outpatient (CLI) | payer OTHER ==
--- NOTE | 2024-01-26 07:55 | XR ---
EXAMINATION TYPE: XR KUB DATE OF EXAM: 01/25/2024 HISTORY: Pain Comparison: None.Single KUB is submitted for interpretation. Findings: Right renal calculi: Calculi overlying the upper pole right kidney measuring up to 5 mm. Right ureteral calculi: None Visualized. Left renal calculi: Multiple calculi overlying the upper pole of the left kidney measuring up to 5 m m. Left ureteral calculi: Linear calcification measuring 2 mm in width and 6 mm in length just caudal t o the left SI joint could reflect distal ureteral calculus. Pelvic calcifications: None Visualized. Bowel gas pattern is unremarkable. No free air. No mass effects. IMPRESSION: 1. As above
== END | disposition home or self-care (01) ==
LOC: RADXRMAIN 16:35
PROVIDERS: ATTEND Urology
DX: N20.0 Calculus of kidney (principal)
CPT/HCPCS: 74018

== ENCOUNTER → 2024-02-02 | Outpatient (CLI) | payer OTHER ==
[2024-02-02 15:21] LABS: Basophils # (A) 0.08 X 10*3/uL (0.00-0.10); Basophils % (A) 1.1 %; Eosinophils # (A) 0.27 X 10*3/uL (0.04-0.35); Eosinophils % (A) 3.8 %; HCT 46.8 % (37.2-46.3); HGB 15.5 g/dL (12.0-15.0); Lymphocytes # (A) 2.44 X 10*3/uL (0.90-5.00); Lymphocytes % (A) 33.9 %; MCH 28.5 pg (27.0-32.0); MCHC 33.1 g/dL (32.0-37.0); Mean Platelet Volume 12.3 FL (9.5-12.2); Monocytes # (A) 0.51 X 10*3/uL (0.20-1.00); Monocytes % (A) 7.1 %; NRBC Per 100 WBC 0 X 10*3/uL (0.00-0.01); Neutrophils # (A) 3.88 X 10*3/uL (1.80-7.70); Platelet Count 229 X 10*3/uL (140-440); RBC 5.44 X 10*6/uL (4.10-5.20); RDW 13.5 % (11.5-14.5); WBC 7.19 X 10*3/uL (4.50-10.00)
[2024-02-02 15:54] LABS: BUN/Creat Ratio 10.57 Ratio (12.00-20.00); Blood Urea Nitrogen 7.4 mg/dL (9.0-27.0); Calcium 10.3 mg/dL (8.7-10.3); Carbon Dioxide 24.6 mmol/L (21.6-31.8); Chloride 103 mmol/L (96-109); Glucose 89 mg/dL (70-110); Potassium 4.3 mmol/L (3.5-5.5); Sodium 139 mmol/L (135-145)
[2024-02-02 16:17] LABS: Appearance,Urine Clear (Clear); Bilirubin,Urine Negative (Negative); Blood,Urine Negative (Negative); Color,Urine Yellow (Yellow); Ketones,Urine Negative (Negative); Nitrite,Urine Negative (Negative); Specific Gravity,Urine 1.004 (1.001-1.030); Urobilinogen,Urine 0.2 E.U./DL
== END | disposition home or self-care (01) ==
LOC: LABPAT 12:04
PROVIDERS: ATTEND Urology
DX: Z01.812 Encounter for preprocedural laboratory examination (principal); N20.1 Calculus of ureter
CPT/HCPCS: 36415; 80048; 81003; 85025; 87086

== ENCOUNTER 2024-02-08 09:04 | Day surgery (SDC) | payer OTHER ==
--- NOTE | 2024-02-07 19:44 | P.GSHP ---
History of Present Illness H&P Date: 02/07/24 28 yo female with a history of stones who has a 6 mm distal left ureteral stone and persistent colic. She comes for a left ureteroscopy and laser lithotriposy. the risks and alternatives have been discussed She comes for this procedure. Past Medical History Past Medical History: Skin Disorder, Thyroid Disorder Additional Past Medical History / Comment(s): Recent dx with kidney January 2024. Recently gave Oct. History of preeclampsia with first ; multiple ear surgeries; kidney stones, eczema. History of Any Multi-Drug Resistant Organisms: None Reported Past Surgical History: Section, Ear Surgery, Tonsillectomy Additional Past Surgical History / Comment(s): ear surgery x 11 on missy. ears for tubes & polyps, kidney stones. wisdom teeth, breast biopsy. surgery to remove kidney stones x2. Past Anesthesia/Blood Transfusion Reactions: No Reported Reaction Additional Past Anesthesia/Blood Transfusion Reaction / Comment(s): No hx of blood transfusion. 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 Director Thyroid] 30 mg PO QAM 02/03/24 02/03/24 History Allergies Allergy/AdvReac Type Severity Reaction Status Date / Time azithromycin [From Zithromax] Allergy Rash/Hives Verified 11/17/23 11:55 lactose Allergy Rash/Hives Verified 02/03/24 11:55 "nursing baby gets rash/hives all over body." Surgical - Exam - General well developed, well nourished, no distress - Eyes normal ocular movement, no icteric - ENT no hearing loss, no congestion - Neck no masses, trachea midline - Respiratory normal respiratory effort, clear to auscultation - Abdomen Abdomen: soft, non tender, no guarding, no rigid, no rebound - Integumentary no rash, no abnormal pigmentation - Neurologic no disoriented, no combative - Psychiatric oriented to time, oriented to person, oriented to place, speech is normal, memory intact Results - Imaging Abdominal x-ray: report reviewed, image reviewed CT scan - abdomen: report reviewed, image reviewed CT scan - pelvis: report reviewed, image reviewed Assessment and Plan Assessment: impression: left ureteral stone with colic. Plan: left ureteroscopy with laser lithotripsy
[~2024-02-08 09:04] MED LIST: GENTAMICIN 100 MG in SODIUM CHLORIDE 0.9% 100 ML IVPB PRN; HYDROmorphone 0.5 MG/0.5 ML SYRINGE IVP PRN; fentaNYL (PF) 50 MCG/ML 2 ML AMP IV PRN
--- NOTE | 2024-02-08 09:58 | XR ---
EXAMINATION TYPE: XR KUB DATE OF EXAM: 02/08/2024 COMPARISON: 01/25/2024 INDICATION: Left ureteral stone TECHNIQUE: Single view abdomen FINDINGS: There is a normal bowel gas pattern. Fecal debris is within the colon. Psoas margins are normal. No organomegaly is present. 0.8 x 0.3 cm calcification may be slightly lower in the mid left hemipelvis on the prior exam. Distal ureteral stone should be considered. IMPRESSION: 1. There may be some progression of the mid left hemipelvis ureteral stone.
[2024-02-08] MEDS ORDERED: ONDANSETRON 4 MG/2 ML VIAL ONE (10:10)
[2024-02-08] MEDS: ONDANSETRON 4 MG/2 ML VIAL IVP ONE (10:19)
[2024-02-08] MEDS: LACTATED RINGERS 1,000 ML IV SCH (10:19)
[2024-02-08] MEDS: DEXAMETHASONE SOD PHOSPHATE 4 MG/ML 1 ML VIAL IVP ONE (10:34)
[2024-02-08] MEDS ORDERED: fentaNYL (PF) 50 MCG/ML 2 ML AMP ONE (10:47)
[2024-02-08] MEDS ORDERED: PROPOFOL 10 MG/ML 20 ML VIAL IV ONE (10:47)
[2024-02-08] MEDS ORDERED: MIDAZOLAM 2 MG/2 ML VIAL ONE (10:47)
[2024-02-08] MEDS ORDERED: SUCCINYLCHOLINE CHLORIDE 200 MG/10 ML VIAL IV ONE (10:47)
[2024-02-08] MEDS: AMPICILLIN 1,000 MG in SODIUM CHLORIDE 0.9% 50 ML IVPB PRN (10:52)
--- NOTE | 2024-02-08 11:31 | P.OP ---
Date of Procedure: 02/08/24 Preoperative Diagnosis: left ureteral stone Postoperative Diagnosis: same Procedure(s) Performed: cystoscopy, left ureteroscopy with laser lithotripsy Anesthesia: JTA Surgeon: Joseph Rider Estimated Blood Loss (ml): 0 Pathology: other Condition: stable (stone) Disposition: PACU Indications for Procedure: the patient is 28. She has a 6-7 mm distal ureteral stone that she is unable to pass. She comes for left ureteroscopy and laser lithotripsy. The stone was seen on KUB. Description of Procedure: patient brought to the operating suite. General anesthetic. Placed in lithotomy position with a sterile prep and drape. Cystoscopy Foroblique lens and 21-[place] sheath identifies a normal urethra. The ureteral orifices are normal. The bladder mucosa is unremarkable. With a 7-[place] mini ureteroscope I passed the scope into the left ureteral orifice up to the stone in the distal ureter. With the 365 laser probe the stone was broken into tiny fragments majority of which was flushed out. I basket the larger fragments and sent to pathology. I reinspected the left ureter there is no remaining stone. There is not enough edema to leave a stent. The ureteroscope was removed. The bladder is drained. The patient's awake and returned recovery in good condition. Blood loss is minimal. Impression successful left ureteroscopy laser lithotripsy
[2024-02-08] MEDS: HYDROmorphone 0.5 MG/0.5 ML SYRINGE IVP ONE (11:38)
--- NOTE | 2024-02-08 11:39 | FL ---
EXAMINATION TYPE: FL guidance operating room Intraoperative/procedural fluoroscopic services were pro vided. Total fluoroscopy time is 2.3 seconds with a total of 1 submitted images to PACS. Please see t he operative/procedural note for further details. DAP: 0.1449 Gycm2
[2024-02-08 12:00] VITALS: TEMP 98.1
[2024-02-08 12:43] VITALS: RESP 20
[2024-02-08 13:25] VITALS: BP 112/72; PULSE 69
== END 2024-02-08 13:40 | disposition home or self-care (01) ==
LOC: OR 09:04
PROVIDERS: ATTEND Urology
DX: N20.1 Calculus of ureter (principal); E07.9 Disorder of thyroid, unspecified; Z87.442 Personal history of urinary calculi; Z87.891 Personal history of nicotine dependence; Z82.49 Family history of ischemic heart disease and other diseases of the circulatory system; Z83.49 Family history of other endocrine, nutritional and metabolic diseases; Z79.890 Hormone replacement therapy; Z88.1 Allergy status to other antibiotic agents; Z91.011 Allergy to milk products; Z90.89 Acquired absence of other organs; Z98.890 Other specified postprocedural states; Z79.899 Other long term (current) drug therapy
CPT/HCPCS: 81025; 82365; 74018; 52353; J2250; J0330; J1100; J2405; J3010; J0290; J2704; J1170

== ENCOUNTER → 2024-03-02 | Outpatient (CLI) | payer OTHER ==
--- NOTE | 2024-03-02 10:54 | XR ---
EXAMINATION TYPE: XR KUB DATE OF EXAM: 03/02/2024 9:29 AM CLINICAL INDICATION:Female, 28 years old with history of N20.0 CALCULUS OF KIDNEY N20.1 CALCULUS OF U RETER; [facility] COMPARISON: 02/08/2024. TECHNIQUE: One radiographic view of the abdomen was obtained. FINDINGS: The bowel gas pattern is nonspecific without dilated loops of small or large bowel. There i s no evidence for organomegaly or pneumoperitoneum. The osseous structures are intact. Left renal c alculi measuring up to 5 mm. Left pelvic calculus no longer visualized. Fecal material and gas are de monstrated throughout the colon and rectum. IMPRESSION: 1. 5 mm left renal calculus. Prior left pelvic calculus is no longer visualized. 2. Nonspecific bowel gas pattern without radiographic evidence for acute process.
== END | disposition home or self-care (01) ==
LOC: RADXRMAIN 09:16
PROVIDERS: ATTEND Urology
DX: N20.2 Calculus of kidney with calculus of ureter (principal)
CPT/HCPCS: 74018

== ENCOUNTER → 2024-08-24 | Outpatient (CLI) | payer OTHER ==
--- NOTE | 2024-08-24 10:57 | XR ---
EXAMINATION TYPE: XR abdomen 1V DATE OF EXAM: 08/24/2024 10:03 AM COMPARISON: 03/02/2024 CLINICAL INDICATION: Female, 29 years old with history of N20.0 CALCULUS OF KIDNEY, posterior uretero scopy for left-sided stone FINDINGS: Nonobstructive bowel gas pattern. Mild scattered stool. No suspicious calcification identified radiog raphically. IMPRESSION: Mild scattered stool. No definite suspicious calcification seen. [facility], , 08/24/2024 10:54 AM
== END | disposition home or self-care (01) ==
LOC: RADXRMAIN 09:40
PROVIDERS: ATTEND Urology
DX: N20.0 Calculus of kidney (principal); Z87.442 Personal history of urinary calculi
CPT/HCPCS: 74018